=== PATIENT | male | born 1940 | race American Indian/Alaskan Native ===

== ENCOUNTER → 2017-07-12 07:06 | Outpatient (CLI) | payer MEDICARE, OTHER, SELFPAY ==
[2017-07-12 08:19] LABS: Add Manual Diff / Slide Review NO; Basophils Percent Auto 0.4 % (0-2); Eosinophils Percent Auto 3.7 % (2-4); Hematocrit 43.9 % (41-53); Hemoglobin 15.2 g/dL (13.5-17.5); Lymphocytes Percent Auto 19.4 % (25-40); Mean Corpuscular HGB Conc 34.5 % (30-36); Mean Corpuscular Hemoglobin 31.2 PG (26-34); Mean Corpuscular Volume 90.3 fL (80-100); Monocytes Percent Auto 7.3 % (3-14); Neutrophils Absolute Auto 5600 /uL (3000-5900); Neutrophils Percent Auto 69.2 % (50-75); Platelet Count 251 X10^3/uL (150-400); Red Blood Cell Count 4.86 X10^6/uL (4.5-5.9); Red Cell Distribution Width 13.6 % (11.6-14.8); White Blood Cell Count 8.1 X10^3/uL (4.5-11.0)
[2017-07-12 08:42] LABS: Alanine Aminotransferase 35 IU/L (21-72); Albumin 4.4 g/dL (3.5-5.0); Albumin Globulin Ratio 1.4 (1.0-2.8); Alkaline Phosphatase 101 U/L (38-126); Aspartate Aminotransferase 30 IU/L (17-59); BUN Creatinine Ratio 14.5 (6-22); Bilirubin Total 0.6 mg/dL (0.2-1.3); Blood Urea Nitrogen 16 mg/dL (9-20); Calcium 9.2 mg/dL (8.4-10.2); Carbon Dioxide 29 mmol/L (22-32); Chloride 102 mmol/L (98-107); Cholesterol 197 mg/dL (140-199); Estimated Glomerular Filt Rate > 60.0 mL/min (>60); Globulin 3.2 g/dL (1.7-4.1); Glucose 101 mg/dL (80-110); HDL Cholesterol 36 mg/dL (40-60); HEMOLYSIS < 15 (0-50); LDL Cholesterol Calculated 109 mg/dL (<100); Sodium 141 mmol/L (137-145); Total Protein 7.6 g/dL (6.3-8.2); Triglycerides 258 mg/dL (35-150)
[2017-07-12 09:14] LABS: Thyroid Stimulating Hormone 1.43 uIU/mL (0.47-4.68)
== END ==
PROVIDERS: PCP Family Medicine; Visit Provider Family Medicine
DX: E78.2 Mixed hyperlipidemia (principal)
CPT/HCPCS: 36415; 80053; 80061; 84153; 84443; 85025

== ENCOUNTER → 2017-11-24 06:51 | Outpatient (CLI) | payer MEDICARE, OTHER, SELFPAY ==
--- NOTE | 2017-11-24 06:54 | DI.MRI.S_ITS ---
PROCEDURE: MR HEAD/BRAIN WO CON INDICATIONS: mem imp TECHNIQUE: Non-contrast axial T1 spin echo, axial T2 fast spin echo, sagittal and axial FLAIR, coronal T2 fast spin echo, axial gradient echo, axial diffusion and ADC through the brain. COMPARISON: [facility], MR, MR BRAIN WITHOUT CONTRAST, 09/14/2017, 15:34. FINDINGS: Image quality: Excellent. CSF spaces: Ventricles appear symmetric in size and shape. Basal cisterns are patent. No extra-axial fluid collections. Brain: No intracranial bleeds or mass effects. There is cerebral volume loss for age. There are periventricular and deep white matter chronic small vessel ischemic changes. Brainstem appears normal. Diffusion-weighted images show no acute ischemic insults. No chronic ischemic insults. Normal intravascular flow voids are present. Skull and face: Calvarial bone marrow is normal in signal. Orbits are normal. Sinuses: Sinuses and mastoids are clear. IMPRESSION: 1. No acute intracranial process. Stable exam compared to 09/14/17. 2. Moderate atrophy and chronic microvascular ischemic changes. Dictated by: Kamala Edmond M.D. on 11/24/2017 at 10:26 Approved by: Kamala Edmond M.D. on 11/24/2017 at 10:29
== END ==
PROVIDERS: PCP Family Medicine; Visit Provider Family Medicine
DX: R41.3 Other amnesia (principal)
CPT/HCPCS: 70551

== ENCOUNTER → 2018-05-26 15:02 | Outpatient (CLI) | payer MEDICARE, OTHER, SELFPAY ==
--- NOTE | 2018-05-26 | DI.ECHO.S_ITS ---
[facility]---------+ [facility] +---------+ : : [address] : [place] : : : : [id number] : : : : Phone: [phone]---------+ Echocardiogram Report + + :Name: RUSSELL WOODS Study Date: 05/26/2018 Height: 68 in : :[facility] Weight: 201 lb : : Gender: Male BSA: 2.0 m2 : :: 1940 Age: 78 yrs BP: 150/86 mmHg: :Reason For Study: Chest pain : : Performed By: Terri Chairez : :Referring: Dr. Mic Adams : + + Interpretation Summary The left ventricle is normal in size. The ejection fraction is estimated to be 65-70%. The right ventricle is grossly normal size. The right ventricular systolic function is normal. The aortic valve is slightly calcified. Leaflet mobility is mildly reduced. There is mild aortic stenosis. There is trace tricuspid regurgitation. The right ventricular systolic pressure is estimated to be at least 39 mmHg based on an estimated right atrial pressure of 8 mm Hg. The atrial septum is aneurysmal. The interatrial septum is intact with no evidence for an atrial septal defect. The ascending aorta is mildly enlarged. Procedure: A two-dimensional transthoracic echocardiogram with color flow and Doppler was performed. The study quality was technically adequate. Most of the acoustic windows were suboptimal, but the best imaging was obtained from the subcostal window. The heart rate ranged between 100-97 bpm during the study. The patient was in normal sinus rhythm during the exam. Left Ventricle: The left ventricle is normal in size. Proximal septal thickening is noted. There is no echo evidence for significant left ventricular outflow tract obstruction. There is no thrombus. The ejection fraction is estimated to be 65-70%. There are no focal wall motion abnormalities. Diastolic function could not be accurately assessed due to tachycardia. Right Ventricle: The right ventricle is grossly normal size. The right ventricular systolic function is normal. Atria: The left atrial size is normal. Right atrial size is normal. The interatrial septum is intact with no evidence for an atrial septal defect. The atrial septum is aneurysmal. Mitral Valve: The mitral valve leaflets appear mildly thickened, but open well. There is slight calcification extending into the subvalvular apparatus. There is mild mitral annular calcification. No significant mitral valve stenosis. There is trace mitral regurgitation. Aortic Valve: The aortic valve is trileaflet. Leaflet mobility is mildly reduced. The aortic valve is slightly calcified. The calculated aortic valve area is 1.8 cm2. The aortic valve area is 1.8 centimeters squared by planimetry. The peak aortic velocity is 2.4 m/sec. The aortic valve mean gradient is 11 mmHg. Severity ratio is 0.51. There is mild aortic stenosis. There is trace aortic regurgitation. Tricuspid Valve: The tricuspid valve is normal. The right ventricular systolic pressure is estimated to be at least 39 mmHg based on an estimated right atrial pressure of 8 mm Hg. There is trace tricuspid regurgitation. Pulmonic Valve: The pulmonic valve is not well seen, but is grossly normal. There is trace pulmonic regurgitation. Great Vessels: The aortic root is normal size. The ascending aorta is mildly enlarged. The aortic arch is at the upper limits of normal in size. The IVC is dilated (diameter is greater than 2.1 cm) yet it collapses greater than 50% with a sniff. This suggests a right atrial pressure of 8 mm Hg. Pericardium/ Pleura There is no pericardial effusion. There is no pleural effusion. MMode/2D Measurements & Calculations LVIDd: 3.7 cm LVOT diam: 2.1 cm LVIDs: 2.4 cm Ao root diam: 3.8 cm FS: 34.0 % Aortic Jxn: 3.2 cm EPSS: 0.50 cm asc Aorta Diam: 4.0 cm IVSd: 1.1 cm Ao Arch Diam (Prox Trans): 3.5 cm LVPWd: 0.81 cm LV sanches. diameter/BSA (cm/m^2): 1.8 LV sys. diameter/BSA (cm/m^2): 1.2 LA dimension: 4.0 cm RA long axis: 5.3 cm LA A2 area: 16.7 cm2 RA area: 18.0 cm2 LA A4 area: 15.1 cm2 RA vol: 51.6 ml LA length (vol): 4.8 cm RA : 25.2 ml/m2 LA vol: 45.0 ml IVC diam: 2.2 cm LA vol index: 22.0 ml/m2 RVDd major: 5.9 cm RVD1 (basal): 4.2 cm RVD2 (mid): 3.2 cm BOY (plan): 1.8 cm2 Doppler Measurements & Calculations Ao V2 max: 240.5 cm/sec LVOT Max Samson: 112.1 cm/sec Ao V2 mean: 155.8 cm/sec LV V1 max P.0 mmHg Ao max P.1 mmHg LV V1 VTI: 22.6 cm Ao mean P.4 mmHg BOY(I,D): 1.8 cm2 Ao V2 VTI: 44.1 cm BOY(V,D): 1.7 cm2 sev ratio: 0.51 BOY indexed to BSA (cm^2/m^2): 0.90 MVA(VTI): 3.9 cm2 TR max samson: 276.6 cm/sec TR max P.6 mmHg PA V2 max: 95.3 cm/sec PA V2 mean: 59.4 cm/sec PA mean P.7 mmHg PA Accel Time: 0.08 sec MV V2 mean: 66.5 cm/sec SV(LVOT): 80.9 ml MV mean P.4 mmHg MV V2 VTI: 20.7 cm Reading Physician:PM
== END ==
PROVIDERS: PCP Family Medicine; Visit Provider Family Medicine
DX: R07.89 Other chest pain (principal); I35.0 Nonrheumatic aortic (valve) stenosis; I07.1 Rheumatic tricuspid insufficiency; I77.810 Thoracic aortic ectasia
CPT/HCPCS: 93306

== ENCOUNTER → 2018-06-27 06:52 | Outpatient (CLI) | payer MEDICARE, OTHER, SELFPAY ==
[2018-06-27 08:23] LABS: Add Manual Diff / Slide Review NO; Basophils Absolute Auto 0 /uL (0-100); Basophils Percent Auto 0.7 % (0-2); Eosinophils Absolute Auto 200 /uL (0-450); Hematocrit 44.8 % (41-53); Hemoglobin 15.5 g/dL (13.5-17.5); Lymphocytes Absolute Auto 1500 /uL (1100-4500); Lymphocytes Percent Auto 22.5 % (25-40); Mean Corpuscular HGB Conc 34.6 % (30-36); Mean Corpuscular Hemoglobin 31.3 PG (26-34); Mean Corpuscular Volume 90.5 fL (80-100); Monocytes Absolute Auto 500 /uL (0-900); Monocytes Percent Auto 7.6 % (3-14); Neutrophils Absolute Auto 4300 /uL (1500-7000); Neutrophils Percent Auto 66.2 % (50-75); Platelet Count 267 X10^3/uL (150-400); Red Blood Cell Count 4.95 X10^6/uL (4.5-5.9); Red Cell Distribution Width 13.7 % (11.6-14.8); White Blood Cell Count 6.5 X10^3/uL (4.5-11.0)
[2018-06-27 09:13] LABS: Alanine Aminotransferase 37 IU/L (21-72); Albumin 4.3 g/dL (3.5-5.0); Albumin Globulin Ratio 1.4 (1.0-2.8); Alkaline Phosphatase 83 U/L (38-126); Aspartate Aminotransferase 35 IU/L (17-59); BUN Creatinine Ratio 12.5 (6-22); Bilirubin Total 0.6 mg/dL (0.2-1.3); Blood Urea Nitrogen 15 mg/dL (9-20); Calcium 9.9 mg/dL (8.4-10.2); Carbon Dioxide 30 mmol/L (22-32); Chloride 98 mmol/L (98-107); Cholesterol 181 mg/dL (140-199); Estimated Glomerular Filt Rate 58.6 mL/min (>60); Glucose 98 mg/dL (80-110); HDL Cholesterol 31 mg/dL (40-60); HEMOLYSIS < 15 (0-50); LDL Cholesterol Calculated 112 mg/dL (<100); Potassium 4.2 mmol/L (3.4-5.1); Sodium 138 mmol/L (137-145); Total Protein 7.3 g/dL (6.3-8.2); Triglycerides 189 mg/dL (35-150)
[2018-06-27 09:38] LABS: Thyroid Stimulating Hormone 1.97 uIU/mL (0.47-4.68)
[2018-06-27 09:41] LABS: Prostate Specific Antigen Scrn 2.66 ng/mL (0.1-4.0)
[2018-06-27 09:59] LABS: Vitamin B12 657 pg/mL (239-931)
== END ==
PROVIDERS: Family Provider Family Medicine; PCP Family Medicine; Visit Provider Specialist
DX: R41.3 Other amnesia (principal); E78.2 Mixed hyperlipidemia; E03.9 Hypothyroidism, unspecified; I10 Essential (primary) hypertension; Z12.5 Encounter for screening for malignant neoplasm of prostate
CPT/HCPCS: 36415; 80053; 80061; 82607; 84443; 85025; G0103

== ENCOUNTER → 2020-03-14 07:16 | Outpatient (CLI) | payer MEDICARE, OTHER, SELFPAY ==
[2020-03-14 08:59] LABS: Add Manual Diff / Slide Review NO; Basophils Absolute Auto 0 /uL (0-100); Basophils Percent Auto 0.6 % (0-2); Eosinophils Absolute Auto 200 /uL (0-450); Eosinophils Percent Auto 2.6 % (2-4); Hematocrit 45.3 % (41-53); Hemoglobin 14.9 g/dL (13.5-17.5); Lymphocytes Absolute Auto 1000 /uL (1100-4500); Lymphocytes Percent Auto 14.8 % (25-40); Mean Corpuscular HGB Conc 32.9 % (30-36); Mean Corpuscular Hemoglobin 30.8 PG (26-34); Mean Corpuscular Volume 93.5 fL (80-100); Monocytes Absolute Auto 600 /uL (0-900); Neutrophils Absolute Auto 5000 /uL (1500-7000); Platelet Count 279 X10^3/uL (150-400); Red Blood Cell Count 4.85 X10^6/uL (4.5-5.9); Red Cell Distribution Width 12.9 % (11.6-14.8); White Blood Cell Count 6.8 X10^3/uL (4.5-11.0)
[2020-03-14 09:21] LABS: Alanine Aminotransferase 19 IU/L (<50); Albumin 4.2 g/dL (3.5-5.0); Albumin Globulin Ratio 1.4 (1.0-2.8); Alkaline Phosphatase 78 U/L (38-126); Aspartate Aminotransferase 24 IU/L (17-59); BUN Creatinine Ratio 16.5 (6-22); Bilirubin Total 0.6 mg/dL (0.2-1.3); Blood Urea Nitrogen 16 mg/dL (9-20); Carbon Dioxide 32 mmol/L (22-32); Chloride 101 mmol/L (98-107); Cholesterol 197 mg/dL (140-199); Estimated Glomerular Filt Rate > 60.0 mL/min (>60); Globulin 2.9 g/dL (1.7-4.1); Glucose 95 mg/dL (80-110); HDL Cholesterol 37 mg/dL (40-60); HEMOLYSIS < 15 (0-50); LDL Cholesterol Calculated 133 mg/dL (<100); Sodium 137 mmol/L (137-145); Total Protein 7.1 g/dL (6.3-8.2); Triglycerides 134 mg/dL (35-150)
[2020-03-14 09:41] LABS: Creatinine Urine Random 113.2 mg/dL
[2020-03-14 09:45] LABS: Microalbumin Urine Random 1.7 mg/dL (0-1.6)
[2020-03-14 09:54] LABS: Free T4, Direct Thyroxine 1.54 ng/dL (0.78-2.19)
[2020-03-14 10:08] LABS: Thyroid Stimulating Hormone 1.56 uIU/mL (0.47-4.68)
== END ==
PROVIDERS: Family Provider Family Medicine; PCP Family Medicine; Referring Provider Family Medicine; Visit Provider Family Medicine
DX: E03.9 Hypothyroidism, unspecified (principal); E78.2 Mixed hyperlipidemia; I10 Essential (primary) hypertension
CPT/HCPCS: 36415; 80053; 80061; 82043; 82570; 84439; 84443; 85025

== ENCOUNTER → 2021-02-28 08:20 | Outpatient (CLI) | payer MEDICARE, OTHER, SELFPAY ==
[2021-02-28 09:24] LABS: Add Manual Diff / Slide Review NO; Basophils Absolute Auto 0 /uL (0-100); Basophils Percent Auto 0.8 % (0-2); Eosinophils Absolute Auto 200 /uL (0-450); Eosinophils Percent Auto 3.8 % (2-4); Hematocrit 38.3 % (41-53); Hemoglobin 13.1 g/dL (13.5-17.5); Lymphocytes Absolute Auto 900 /uL (1100-4500); Lymphocytes Percent Auto 17.8 % (25-40); Mean Corpuscular HGB Conc 34.3 % (30-36); Mean Corpuscular Hemoglobin 31.3 PG (26-34); Mean Corpuscular Volume 91.2 fL (80-100); Monocytes Absolute Auto 400 /uL (0-900); Monocytes Percent Auto 8.4 % (3-14); Neutrophils Absolute Auto 3500 /uL (1500-7000); Neutrophils Percent Auto 69.2 % (50-75); Platelet Count 293 X10^3/uL (150-400); Red Cell Distribution Width 13.1 % (11.6-14.8)
[2021-02-28 10:10] LABS: Alanine Aminotransferase 26 IU/L (<50); Albumin 4.2 g/dL (3.5-5.0); Albumin Globulin Ratio 1.4 (1.0-2.8); Alkaline Phosphatase 108 U/L (38-126); Aspartate Aminotransferase 41 IU/L (17-59); Bilirubin Total 0.4 mg/dL (0.2-1.3); Blood Urea Nitrogen 15 mg/dL (9-20); Carbon Dioxide 31 mmol/L (22-32); Chloride 97 mmol/L (98-107); Cholesterol 174 mg/dL (140-199); Glucose 99 mg/dL (80-110); HDL Cholesterol 44 mg/dL (40-60); HEMOLYSIS < 15 (0-50); LDL Cholesterol Calculated 111 mg/dL (<100); Potassium 4.5 mmol/L (3.4-5.1); Sodium 133 mmol/L (137-145); Total Protein 7.2 g/dL (6.3-8.2); Triglycerides 97 mg/dL (35-150)
[2021-02-28 10:40] LABS: Prostate Specific Antigen Scrn 6.64 ng/mL (0.1-4.0); TSH w/ Reflex to FT4 1.26 uIU/mL (0.47-4.68)
== END ==
PROVIDERS: Family Provider Family Medicine; PCP Family Medicine; Referring Provider Family Medicine; Visit Provider Family Medicine
DX: E78.2 Mixed hyperlipidemia (principal); I10 Essential (primary) hypertension; Z12.5 Encounter for screening for malignant neoplasm of prostate; N13.8 Other obstructive and reflux uropathy; N40.1 Benign prostatic hyperplasia with lower urinary tract symptoms; E03.9 Hypothyroidism, unspecified
CPT/HCPCS: 36415; 80053; 80061; 84443; 85025; G0103

== ENCOUNTER → 2021-05-13 14:06 | Outpatient (CLI) | payer MEDICARE, OTHER, SELFPAY ==
[2021-05-13 14:58] LABS: Hematocrit 34.4 % (41-53); Hemoglobin 11.7 g/dL (13.5-17.5); Mean Corpuscular Hemoglobin 30.5 PG (26-34); Mean Corpuscular Volume 89.8 fL (80-100); Platelet Count 132 X10^3/uL (150-400); Red Blood Cell Count 3.83 X10^6/uL (4.5-5.9); Red Cell Distribution Width 13.9 % (11.6-14.8); White Blood Cell Count 6.8 X10^3/uL (4.5-11.0)
[2021-05-13 15:13] LABS: Add Manual Diff / Slide Review YES
[2021-05-13 15:22] LABS: HEMOLYSIS < 15 (0-50); Iron 84 ug/dL (49-181)
[2021-05-13 15:24] LABS: Alanine Aminotransferase 35 IU/L (<50); Albumin 4.3 g/dL (3.5-5.0); Albumin Globulin Ratio 1.5 (1.0-2.8); Alkaline Phosphatase 146 U/L (38-126); Aspartate Aminotransferase 132 IU/L (17-59); Bilirubin Total 0.5 mg/dL (0.2-1.3); Blood Urea Nitrogen 19 mg/dL (9-20); Calcium 9.5 mg/dL (8.4-10.2); Carbon Dioxide 24 mmol/L (22-32); Chloride 97 mmol/L (98-107); Estimated Glomerular Filt Rate 54.6 mL/min (>60); Globulin 2.8 g/dL (1.7-4.1); Glucose 111 mg/dL (80-110); HEMOLYSIS 21 (0-50); Potassium 4.5 mmol/L (3.4-5.1); Sodium 132 mmol/L (137-145); Total Protein 7.1 g/dL (6.3-8.2)
[2021-05-13 15:32] LABS: Neutrophils Absolute Manual 4964 /uL (3000-5900); Nucleated Red Blood Cells 1 #/Diff; Total Cells Counted 100
[2021-05-13 15:33] LABS: Platelet Estimate Decreased on smear; RBC Morphology Normal Morphology; Toxic Vacuolation Present
[2021-05-13 15:34] LABS: Percent Iron Saturation 38 % (20-50); Total Iron Binding Capacity 223 ug/dL (261-462); Transferrin 167 mg/dL (206-381)
[2021-05-13 15:39] LABS: Free T4, Direct Thyroxine 1.36 ng/dL (0.78-2.19)
[2021-05-13 15:52] LABS: Prostate Specific Antigen Scrn 15.3 ng/mL (0.1-4.0)
[2021-05-13 15:53] LABS: Thyroid Stimulating Hormone 2.43 uIU/mL (0.47-4.68)
[2021-05-13 16:11] LABS: Vitamin B12 421 pg/mL (239-931)
== END ==
PROVIDERS: Family Provider Family Medicine; PCP Family Medicine; Referring Provider Family Medicine; Visit Provider Family Medicine
DX: D64.9 Anemia, unspecified (principal); Z12.5 Encounter for screening for malignant neoplasm of prostate; E78.2 Mixed hyperlipidemia; N13.8 Other obstructive and reflux uropathy; N18.9 Chronic kidney disease, unspecified; N40.1 Benign prostatic hyperplasia with lower urinary tract symptoms
CPT/HCPCS: 36415; 80053; 82607; 83540; 83550; 84439; 84443; 85007; 85025; G0103

== ENCOUNTER → 2021-07-14 10:03 | Outpatient (CLI) | payer MEDICARE, OTHER, SELFPAY ==
[2021-07-14 10:44] LABS: Add Manual Diff / Slide Review YES; Hematocrit 21.9 % (41-53); Hemoglobin 7.3 g/dL (13.5-17.5); Mean Corpuscular HGB Conc 33.4 % (30-36); Mean Corpuscular Hemoglobin 33.2 PG (26-34); Mean Corpuscular Volume 99.4 fL (80-100); Platelet Count 38 X10^3/uL (150-400); Red Cell Distribution Width 23.4 % (11.6-14.8); White Blood Cell Count 4.8 X10^3/uL (4.5-11.0)
[2021-07-14 11:02] LABS: Neutrophils Absolute Manual 2928 /uL (3000-5900); Nucleated Red Blood Cells 11 #/Diff; Total Cells Counted 100
[2021-07-14 11:03] LABS: Anisocytosis 3+; Macrocytosis 1+; Platelet Estimate Decreased on smear
[2021-07-14 11:04] LABS: Alanine Aminotransferase 24 IU/L (<50); Albumin 3.4 g/dL (3.5-5.0); Albumin Globulin Ratio 1.4 (1.0-2.8); Alkaline Phosphatase 168 U/L (38-126); Aspartate Aminotransferase 97 IU/L (17-59); BUN Creatinine Ratio 17.4 (6-22); Bilirubin Total 0.7 mg/dL (0.2-1.3); Blood Urea Nitrogen 25 mg/dL (9-20); Calcium 8.8 mg/dL (8.4-10.2); Carbon Dioxide 23 mmol/L (22-32); Chloride 105 mmol/L (98-107); Estimated Glomerular Filt Rate 49 mL/min (>60); Globulin 2.5 g/dL (1.7-4.1); Glucose 113 mg/dL (80-110); HEMOLYSIS < 15 (0-50); Polychromasia 1+; Potassium 4.1 mmol/L (3.4-5.1); Sodium 136 mmol/L (137-145); Total Protein 5.9 g/dL (6.3-8.2)
--- NOTE | 2021-07-20 13:24 | ONC.MSW ---
Description: New Referral Navigation T/C Reason for Referral: Diffuse Metastatic Bone Cancer-unknown primary-urgent Activity: Reviewed EMR and referral for medical status, acuity, and immediate needs. Pt is an 81-year old male who presented to the ED on 07/15/21 with increasing weakness, loss of appetite, recent severe weight loss, severe anemia and thrombocytopenia, as well as an acute UTI. He he was admitted inpt, received blood transfusions, did not need platelet transfusion. CT imaging showed widely metastasized sclerotic bone lesions of unknown primary, diffuse metastatic disease on chest CT, and elevated PSA of 16. He does have moderate dementia, depends on his for care coordination and to provide health hx. SHEETMETAL WORKER spoke with , confirmed that we have the referral, and discussed what to expect with pt's first Oncology consult. Pt is able to tentatively transfer with a gait belt, uses a cane, however is safest in a wheelchair. [facility] will arrange for transportation for pt/spouse. SHEETMETAL WORKER discussed what to expect with navigation services, as well as the ongoing availability of assistance, support, care coordination as needed, and resource referrals. She expressed great relief that he has been scheduled, confirmed his initial consult time for 07/22 at 11:00am.
== END ==
PROVIDERS: Family Provider Family Medicine; PCP Family Medicine; Referring Provider Family Medicine; Visit Provider Family Medicine
DX: D50.8 Other iron deficiency anemias (principal); N18.32 Chronic kidney disease, stage 3b
CPT/HCPCS: 36415; 80053; 85007; 85025

== ENCOUNTER 2021-07-15 12:32 | Inpatient (IN) | payer MEDICARE, OTHER, SELFPAY ==
[2021-07-15] VITALS (31 sets, daily range): BP systolic 80–135; BP diastolic 53–85; PULSE 73–81; RESP 14–23; TEMP 36.1–37; O2SAT 91–100; BMI 22.6
--- NOTE | 2021-07-15 13:14 | ED_ITS ---
HPI - Weakness General Chief complaint: Weakness Stated complaint: Gen. weakness Time Seen by Provider: 07/15/21 13:14 Source: patient and EMS Mode of arrival: EMS History of Present Illness HPI Narrative: This is a 81-year-old male with history of reported ataxia, BPH, CKD, dementia and hypothyroidism who arrives via EMS, he complains of generalized weakness and just feeling generally unwell. For several days. Patient denies fevers, he denies headache or lightheadedness or passing out. He states it has been difficult to get to the bathroom at home and walking he needs some assistance. Patient denies chest pain or shortness of breath. He denies any nausea or vomiting. He denies any dysuria, urgency or frequency, decrease in urine output or dark urine, no diarrhea constipation. No black or bloody stools. He denies any one-sided weakness or lateralizing symptoms. Patient denies any cough, cold or congestion. He presents with EMS his had contacted EMS but made statements to them that she should probably just kill him off because he is old and demented. She had told the EMS while transporting with them that if they told anyone that she would kill him and then asked him his full name specifically and made threats to shoot herself, the EMS providers as well and that it would be all there fault. PD was contacted, saw patient family here. EMS declined to press charges. When discussed with the patient he is unaware of these but states she has a very passionate person he states that she sometimes makes statements like this. He states that she has not hurt him or others. He does have some history of dementia and states he has memory issues. He is unable to give a full medical history or surgical history. He can tell me his primary care physician is Dr. Quiros. Related Data Home Medications Medication Instructions Recorded Confirmed memantine 10 mg tablet 10 mg PO BID tab 01/20/21 07/15/21 aspirin 81 mg tablet 81 mg PO DAILY 07/15/21 07/15/21 clonidine HCl 0.1 mg tablet 0.1 mg PO BID 07/15/21 07/15/21 dorzolamide 22.3 mg-timolol 6.8 1 drp EYE-BOTH BEDTIME 07/15/21 07/15/21 mg/mL eye drops finasteride 5 mg tablet 5 mg PO BEDTIME 07/15/21 07/15/21 fluticasone propionate 50 See Rx Instructions .ROUTE 07/15/21 07/15/21 mcg/actuation nasal .COMPLEX PRN spray,suspension latanoprost 0.005 % eye drops 1 drp EYE-BOTH BEDTIME 07/15/21 07/15/21 pravastatin 20 mg tablet 20 mg PO HS 07/15/21 07/15/21 selenium sulfide 2.5 % lotion See Rx Instructions TOP .COMPLEX 07/15/21 07/15/21 PRN sodium chloride 5 % eye ointment 1 applic EYE-RIGHT BID 07/15/21 07/15/21 trazodone 50 mg tablet 50 mg PO BEDTIME PRN 07/15/21 07/15/21 Previous Rx's Medication Instructions Recorded gabapentin 300 mg capsule 300 mg PO HS #90 cap 09/26/20 (Neurontin) levothyroxine 50 mcg tablet 50 mcg PO QAM #90 tab 09/26/20 montelukast 10 mg tablet 10 mg PO QDAY #90 tab 09/26/20 tamsulosin 0.4 mg capsule (Flomax) 0.4 mg PO QDAY #90 cap 09/26/20 ferrous gluconate 324 mg (38 mg 324 mg PO DAILY #90 tab 05/13/21 iron) tablet lisinopril 20 mg tablet 20 mg PO DAILY #90 tab 06/01/21 Allergies Allergy/AdvReac Type Severity Reaction Status Date / Time No Known Drug Allergies Allergy Verified 06/19/21 10:43 Review of Systems Review of Systems ROS Unobtainable: All systems reviewed & are unremarkable except as noted in HPI and below Patient History Medical History Anemia Ataxia BPH (benign prostatic hyperplasia) Cellulitis Chronic back pain CKD (chronic kidney disease) Cognitive decline Eczema (~1969) Hearing deficit Hypothyroidism Olecranon bursitis PSA elevation Shoulder pain (~2014) Skin lesion Tinea Vision disorder Weight loss due to medication Well adult exam Surgical History Colon polyps Family History Father Heart disease Social History household members: spouse Smoking Status: Former smoker alcohol intake: former substance use type: does not use Smoking Status: Former smoker Substance Use Type: does not use Exam Narrative Exam Narrative: GEN: well nourished, well appearing male, alert and oriented to self, patient appears to be in mild distress. Patient answers questions for ROS clearly. He states he does have some memory issues and has trouble with longer-term history. HEENT: Atraumatic, pupils are equal round reactive to light, extraocular movements are intact, nares are clear, TMs are clear with no fluid, there is no conjunctival pallor. Throat is clear without any exudates, erythema, tonsillar enlargement or uvular deviation HEART: Regular rate and rhythm without murmur, clicks, rubs. pulses are equal in upper and lower extremities LUNGS:Lungs clear to auscultation, no wheezes, rales, crackles, chest moves symmetrically ABD:bowel sounds normal, soft, non-tender, no guarding, rebound, rigidity, no masses noted, no hepatosplenomegaly :No CVA tenderness BACK: No cervical, thoracic or lumbar vertebral point tenderness. Patient has 2 x 3 and a 4 x 4 cm ecchymosis bilateral lower flanks but no hematoma. Patient states this is from a fall. MSCL: Non-tender, no muscle atrophy, muscles strength 5/5 upper and lower extremities, full range of motion, no obvious ataxia on initial exam. NEURO:CN 2-12 intact, sensation normal. SKIN: Patient has some small ecchymosis on right anterior jacob and ankle. Initial Vital Signs Initial Vital Signs: Vital Signs Blood Pressure 82/55 L 07/15/21 12:41 Course Orders Ordered: ED Orders 07/15/21 13:15 PRBC [Packed Cells] Stat Type and Screen Stat 07/15/21 13:20 COVID19 -Nasal RAPID/Pre-Proc Stat 07/15/21 13:27 XR chest 1V Stat EKG-12 Lead Stat 07/15/21 13:34 Complete Blood Count AUTO DIFF Stat Comprehensive Metabolic Panel Stat Lactate (Lactic Acid) Stat NT-proBNP (BNP-Adult 18+) Stat Procalcitonin Stat Prothrombin Time INR Stat Troponin & CK Cardiac Panel Stat 07/15/21 13:36 Consult to RECREATIONAL THERAPY TECHNICIAN - Manager Of Community Relations Stat 07/15/21 13:44 Blood Culture Stat Partial Thromboplastin Time Stat 07/15/21 14:22 CT kidney ureter bladder (KUB) Stat 07/15/21 15:48 Trop I [Troponin I] Stat 07/15/21 17:20 Urinalysis and Microscopic Stat Sodium Chloride (Normal Saline 0.9%) 1,000 mls @ 84 mls/hr IV CONT KAREN Discontinued Medications Sodium Chloride (Normal Saline 0.9%) 2,031 mls @ 677 mls/hr 30 ml/kg infuse over 3 hr (2031 ml) IV NOW ONE Stop: 07/15/21 16:26 Last Infusion: 07/15/21 16:47 Dose: 0 mls/hr Documented by: Admin: 07/15/21 13:35 Dose: 677 mls/hr Documented by: KENYATTA Reevaluation(s) Reevaluation #1: Patient updated on findings today. He continues to be asymptomatic other than feeling unwell. Consultations Consultation #1: Dr. Duncan, accepts for admission. Patient appears to have symptomatic anemia, rectal exam is pending but will be performed but suspect GI source altho ugh platelets are also low unexpectedly in comparison to April. Platelets white count is normal. He has acute kidney injury, positive troponin with EKG change ACS could also be secondary to demand secondary to anemia is patient's hemoglobin was 11 in April as well. Patient has some looked like abnormalities potassium is slightly elevated 5.3. Patient was given fluids, transfuse but aspirin and heparin were held he has been asymptomatic in terms of chest pain or shortness of breath. He was hypotensive upon arrival and has been improving with fluids and transfusion. We also discussed that police department followed an APS report, RECREATIONAL THERAPY TECHNICIAN consultation was included today as made multiple statements about harming others as well as the patient at various points during patient's transfer and patient's family stay. Vital Signs Vital signs: Vital Signs - 8 hr 07/15/21 12:41 07/15/21 12:42 07/15/21 12:47 Temperature Pulse Rate 81 81 Respiratory Rate 14 Blood Pressure 82/55 L 84/57 L Pulse Oximetry 91 93 07/15/21 12:51 07/15/21 13:00 07/15/21 13:16 Temperature 98.6 F Pulse Rate 81 78 77 Respiratory Rate 18 15 20 Blood Pressure 84/57 L 84/58 L 85/58 L Pulse Oximetry 94 93 94 07/15/21 13:24 07/15/21 13:30 07/15/21 13:40 Temperature Pulse Rate 77 78 76 Respiratory Rate 23 19 20 Blood Pressure 80/54 L 84/56 L 107/67 Pulse Oximetry 95 92 100 07/15/21 13:50 07/15/21 14:00 07/15/21 14:10 Temperature Pulse Rate 77 77 77 Respiratory Rate 20 20 21 Blood Pressure 89/63 L 93/62 83/57 L Pulse Oximetry 96 98 95 07/15/21 14:20 07/15/21 14:36 07/15/21 15:00 Temperature Pulse Rate 77 79 76 Respiratory Rate 19 19 Blood Pressure 104/67 Pulse Oximetry 99 98 99 07/15/21 15:07 07/15/21 15:08 07/15/21 15:15 Temperature 97.9 F 97.9 F Pulse Rate 76 77 77 Respiratory Rate 21 20 19 Blood Pressure 114/74 114/74 104/72 Pulse Oximetry 100 98 07/15/21 15:26 07/15/21 15:30 07/15/21 15:45 Temperature 97.9 F Pulse Rate 76 76 76 Respiratory Rate 17 18 18 Blood Pressure 107/70 107/70 107/72 Pulse Oximetry 98 99 07/15/21 16:00 07/15/21 16:15 Temperature Pulse Rate 75 75 Respiratory Rate 18 18 Blood Pressure 129/78 91/64 Pulse Oximetry 99 93 MDM - Weakness Lab Data Result diagrams: 07/15/21 13:34 07/15/21 13:34 Labs: Lab Results 07/15/21 07/15/21 07/15/21 Range/Units 13:15 13:20 13:34 WBC 6.5 (4.5-11.0) X10^3/uL RBC 2.16 L (4.5-5.9) X10^6/uL Hgb 7.1 L (13.5-17.5) g/dL Hct 22.0 L (41-53) % MCV 101.9 H (80-100) fL MCH 32.8 (26-34) PG MCHC 32.2 (30-36) % RDW 24.8 H (11.6-14.8) % Plt Count 49 L (150-400) X10^3/uL Neut % (Auto) Not Reportable Lymph % (Auto) Not Reportable Dade % (Auto) Not Reportable Eos % (Auto) Not Reportable Baso % (Auto) Not Reportable Lymph # (Auto) Not Reportable Dade # (Auto) Not Reportable Baso # (Auto) Not Reportable Total Counted 100 Seg Neutrophils % 55.0 (38-70) % Band Neutrophils % 10.0 H (3-7) % Lymphocytes % (Manual) 21.0 L (25-45) % Atypical Lymphs % 1.0 H ( - 0) % Monocytes % (Manual) 7.0 (2-11) % Eosinophils % (Manual) 1.0 L (2-4) % Metamyelocytes % 3.0 H (-0) % Myelocytes % 2.0 H (-0) % Neutrophils # (Manual) 4225 (6258-4968) /uL Nucleated RBCs 16 H ( - 0) #/Diff RBC Morphology Not Reportable Polychromasia 2+ H Poikilocytosis 1+ H Anisocytosis 3+ H PT (10.1-12.7) SECONDS INR (0.9-1.3) APTT (26.4-36.2) SECONDS Sodium (137-145) mmol/L Potassium (3.4-5.1) mmol/L Chloride (98-107) mmol/L Carbon Dioxide (22-32) mmol/L BUN (9-20) mg/dL Creatinine (0.66-1.25) mg/dL Estimated GFR (>60) mL/min BUN/Creatinine Ratio (6-22) Glucose (80-110) mg/dL Lactate (0.7-2.1) mmol/L Calcium (8.4-10.2) mg/dL Total Bilirubin (0.2-1.3) mg/dL AST (17-59) IU/L ALT (<50) IU/L Alkaline Phosphatase (38-126) U/L Total Creatine Kinase (55-170) U/L CK-MB (CK-2) (<2.37) ng/mL CK-MB (CK-2) Rel Index (1.5-5.0) % Troponin I (0.01-0.034) ng/mL NT-Pro-B Natriuret Pep (<450) pg/mL Total Protein (6.3-8.2) g/dL Albumin (3.5-5.0) g/dL Globulin (1.7-4.1) g/dL Albumin/Globulin Ratio (1.0-2.8) Procalcitonin (<0.5) ng/mL SARS-CoV-2 (PCR) Negative (Negative) Blood Type O Positive Antibody Screen Negative Crossmatch See Detail 07/15/21 07/15/21 07/15/21 Range/Units 13:34 13:34 13:34 WBC (4.5-11.0) X10^3/uL RBC (4.5-5.9) X10^6/uL Hgb (13.5-17.5) g/dL Hct (41-53) % MCV (80-100) fL MCH (26-34) PG MCHC (30-36) % RDW (11.6-14.8) % Plt Count (150-400) X10^3/uL Neut % (Auto) Lymph % (Auto) Dade % (Auto) Eos % (Auto) Baso % (Auto) Lymph # (Auto) Dade # (Auto) Baso # (Auto) Total Counted Seg Neutrophils % (38-70) % Band Neutrophils % (3-7) % Lymphocytes % (Manual) (25-45) % Atypical Lymphs % ( - 0) % Monocytes % (Manual) (2-11) % Eosinophils % (Manual) (2-4) % Metamyelocytes % (-0) % Myelocytes % (-0) % Neutrophils # (Manual) (0139-6356) /uL Nucleated RBCs ( - 0) #/Diff RBC Morphology Polychromasia Poikilocytosis Anisocytosis PT 16.3 H (10.1-12.7) SECONDS INR 1.4 H (0.9-1.3) APTT (26.4-36.2) SECONDS Sodium 135 L (137-145) mmol/L Potassium 5.3 H D (3.4-5.1) mmol/L Chloride 105 (98-107) mmol/L Carbon Dioxide 18 L (22-32) mmol/L BUN 39 H (9-20) mg/dL Creatinine 2.43 H (0.66-1.25) mg/dL Estimated GFR 26 L (>60) mL/min BUN/Creatinine Ratio 16.0 (6-22) Glucose 131 H (80-110) mg/dL Lactate 4.6 H* (0.7-2.1) mmol/L Calcium 8.7 (8.4-10.2) mg/dL Total Bilirubin 0.8 (0.2-1.3) mg/dL AST 134 H (17-59) IU/L ALT 40 (<50) IU/L Alkaline Phosphatase 185 H (38-126) U/L Total Creatine Kinase 200 H (55-170) U/L CK-MB (CK-2) 0.87 (<2.37) ng/mL CK-MB (CK-2) Rel Index 0.4 L (1.5-5.0) % Troponin I 1.280 H* (0.01-0.034) ng/mL NT-Pro-B Natriuret Pep 87490 H (<450) pg/mL Total Protein 6.1 L (6.3-8.2) g/dL Albumin 3.6 (3.5-5.0) g/dL Globulin 2.5 (1.7-4.1) g/dL Albumin/Globulin Ratio 1.4 (1.0-2.8) Procalcitonin 0.274 (<0.5) ng/mL SARS-CoV-2 (PCR) (Negative) Blood Type Antibody Screen Crossmatch 07/15/21 07/15/21 07/15/21 Range/Units 13:44 15:48 15:48 WBC (4.5-11.0) X10^3/uL RBC (4.5-5.9) X10^6/uL Hgb (13.5-17.5) g/dL Hct (41-53) % MCV (80-100) fL MCH (26-34) PG MCHC (30-36) % RDW (11.6-14.8) % Plt Count (150-400) X10^3/uL Neut % (Auto) Lymph % (Auto) Dade % (Auto) Eos % (Auto) Baso % (Auto) Lymph # (Auto) Dade # (Auto) Baso # (Auto) Total Counted Seg Neutrophils % (38-70) % Band Neutrophils % (3-7) % Lymphocytes % (Manual) (25-45) % Atypical Lymphs % ( - 0) % Monocytes % (Manual) (2-11) % Eosinophils % (Manual) (2-4) % Metamyelocytes % (-0) % Myelocytes % (-0) % Neutrophils # (Manual) (3645-4106) /uL Nucleated RBCs ( - 0) #/Diff RBC Morphology Polychromasia Poikilocytosis Anisocytosis PT (10.1-12.7) SECONDS INR (0.9-1.3) APTT 28 (26.4-36.2) SECONDS Sodium (137-145) mmol/L Potassium (3.4-5.1) mmol/L Chloride (98-107) mmol/L Carbon Dioxide (22-32) mmol/L BUN (9-20) mg/dL Creatinine (0.66-1.25) mg/dL Estimated GFR (>60) mL/min BUN/Creatinine Ratio (6-22) Glucose (80-110) mg/dL Lactate 1.4 (0.7-2.1) mmol/L Calcium (8.4-10.2) mg/dL Total Bilirubin (0.2-1.3) mg/dL AST (17-59) IU/L ALT (<50) IU/L Alkaline Phosphatase (38-126) U/L Total Creatine Kinase (55-170) U/L CK-MB (CK-2) (<2.37) ng/mL CK-MB (CK-2) Rel Index (1.5-5.0) % Troponin I 1.550 H* (0.01-0.034) ng/mL NT-Pro-B Natriuret Pep (<450) pg/mL Total Protein (6.3-8.2) g/dL Albumin (3.5-5.0) g/dL Globulin (1.7-4.1) g/dL Albumin/Globulin Ratio (1.0-2.8) Procalcitonin (<0.5) ng/mL SARS-CoV-2 (PCR) (Negative) Blood Type Antibody Screen Crossmatch Imaging Data Chest x-ray: Radiologist Impression: Primo Kelley??81??M??1940 ? Allergy/Adv: No Known Drug Allergies (More??) Close Abdomen/Pelvis CT (Signed) Osito Louise - 07/15/21 Chest X-Ray (Signed) Jerardo Edmonds - 07/15/21 Echocardiogram Ultrasound (Signed) Ra Rincon - 05/26/18 Brain MRI (Signed) Kamala Edmond - 11/24/17 Radiology - Historical 02/03/17 Launch?[address] [address] XRay Report Signed Patient: Primo Kelley MR#: [id number] : 1940 Acct:[id number] Age/Sex: 81 / M Date of Service: 07/15/21 Loc: ED Accession Number: [id number] ?? Procedure: XR chest 1V Ordering Provider: Polina Ellis D.O. PROCEDURE:? XR CHEST 1V ? INDICATIONS:? feels unwell, hypotension ? TECHNIQUE:? One view of the chest was acquired.? ? COMPARISON:? None. ? FINDINGS:? ? Surgical changes and devices:? None.? ? Lungs and pleura:? Lungs are clear.? No pleural effusions or pneumothorax.? ? Mediastinum:? Mediastinal contours appear normal.? Heart size is normal.? ? Bones and chest wall:? No suspicious bony lesions.? Overlying soft tissues appear unremarkable.? ? IMPRESSION:? No acute cardiopulmonary pathology. ? ? Dictated by: Jerardo Edmonds M.D. on 07/15/2021 at 14:33 ? ? Approved by: Jerardo Edmonsd M.D. on 07/15/2021 at 14:36?? CT scan - abdomen/pelvis: Radiologist Impression: Primo Kelley??81??M??1940 ? Allergy/Adv: No Known Drug Allergies (More??) Close Abdomen/Pelvis CT (Signed) Osito Louise - 07/15/21 Chest X-Ray (Signed) Jerardo Edmonds - 07/15/21 Echocardiogram Ultrasound (Signed) Ra Rincon - 05/26/18 Brain MRI (Signed) Kamala Edmond - 11/24/17 Radiology - Historical 02/03/17 Launch?[address] [address] [address] Scan Report Signed Patient: Primo Kelley MR#: [id number] : 1940 Acct:[id number] Age/Sex: 81 / M Date of Service: 07/15/21 Loc: ED Accession Number: [id number] ?? Procedure: CT kidney ureter bladder (KUB) Ordering Provider: Polina Ellis D.O. PROCEDURE:? CT KIDNEY URETER BLADDER (KUB) ? INDICATIONS:? renal failure, symptomatic anemia ? TECHNIQUE:? Axial sections were acquired from the lung bases to the pubic symphysis.? Coronal and sagittal reformats were performed.? For radiation dose reduction, the following was used: ?automated exposure control, adjustment of mA and/or kV according to patient size.? ? COMPARISON:? [facility], CT, CT ABDOMEN PELVIS WITH CONTRAST, 09/19/2019, 21:07. ? FINDINGS: Image quality:? Excellent.? ? Lung bases:? Lung bases are clear.? Heart size is normal. ? Solid organs:? Liver: The liver has no mass or intrahepatic biliary ductal dilatation. The portal vein and hepatic veins are patent. Biliary:? The gallbladder contains a dependent 4 mm stone.? No wall thickening o r pericholecystic fluid.? The margins of the pancreas are somewhat hazy, probably due to motion artifact seen in this study.? Pancreas: The pancreas has no mass or ductal dilatation. There is no surrounding inflammation. Spleen: Normal size. There are no masses. Adrenals: No hypertrophy or nodules. Kidneys: No obstructive calculus or hydronephrosis.? No solid mass. No cystic mass. ? Peritoneum and bowel:? The distal esophagus and stomach are normal.? The small bowel has a normal caliber and appearance. The terminal ileum is normal. The large bowel has diverticulosis with no evidence of diverticulitis.? The appendix is normal. No free fluid or air.? ? Nodes and vessels:? No retroperitoneal or mesenteric adenopathy by size criteria.? The aorta has atherosclerosis with no aneurysmal dilatation.? ? Miscellaneous:? No abdominal wall mass or hernia. ? PELVIS:? Genitourinary:? The bladder has no wall thickening or mass. No bladder calcifications. ? Bones:? The bones demonstrate innumerable sclerotic foci most measuring approximately 1 cm throughout the visualized bones including the femurs, pelvis, lumbar spine, and visualized ribs and thoracic spine.? No vertebral body compression fractures.? ? IMPRESSION: 1. Sclerotic foci throughout the visualized bones new compared to prior CT on concerning for osseous metastatic disease. 2. Diverticulosis without evidence of diverticulitis. 3. No nephroureterolithiasis. 4. Cholelithiasis without evidence of cholecystitis.? ? ? Dictated by: Osito Louise M.D. on 07/15/2021 at 14:48 ? ? Approved by: Osito Louise M.D. on 07/15/2021 at 14:56?? ECG Data Attestation: I personally reviewed and interpreted this ECG as follows: Prior ECG tracings: not available for review Interpretation: Sinus rhythm with sinus arrhythmia, T-wave inversion in lead 3 inverted in V1 through V4. No elevation appreciated. QT for long. Rate of 79 MD 190 QRS 80 QTC of 502. No priors available for comparison. EKG 2. Sinus rhythm premature atrial complexes, rate 81 MD 190 QRS 86 QTC of 506. No acute ST elevation noted. T-wave inversion noted lateral leads. MDM Narrative Medical decision making narrative: This is an 80-year-old male who presents with complaint of feeling unwell with hypotension patient does feel a bit pale, on exam no clear findings for the source of his symptoms. He does not respond to initial fluids. Labs show a he anemia which is new with a hemoglobin from 11-7 since April. Patient is agreeable to transfusion and 2 units PRBCs were transfused. Patient is found to be in acute kidney injury with some like to light abnormalities and signs consistent with dehydration. Troponin is also positive today with EKG changes although no priors for comparison. This may be ACS and/or demand secondary to anemia or exacerbated by anemia. Patient's stool occult was negative exam. He does have some bruising and ecchymosis in various locations but platelets are low in the 30s and 40s in the last 2 days. Patient case was discussed with hospitalist service who accepts. Social Work was also consulted and secondary to social issues related to his 's making statements about harming him and others the police department filed and Adult protective Services report. Patient is demented but when asked about his statements he states she has a very passionate person. Critical Care Time Critical Care Time Critical Care Time: Yes Total Critical Care Time: 45 Attestation: The high probability of a clinically significant, sudden or life threatening deterioration of the [cardiac, pulm] system(s) required my full and direct attention, intervention and personal management. The aggregate critical care time was [] minutes. This time is in addition to time spent performing reported procedures but includes the following: [x] Data Review and interpretation [x] Patient assessment and monitoring of vital signs [x] Documentation [x] Medication orders and management Discharge Plan Departure Patient Disposition: Admitted As Inpatient Clinical Impression: Symptomatic anemia, Non-ST elevation AK (NSTEMI), VICTORINO (acute kidney injury), Acute GI bleeding, Hyperkalemia Admit Date/Time: 07/15/21 16:18 Admit Provider: Jeniffer Duncan
--- NOTE | 2021-07-15 13:27 | DI.RAD.S_ITS ---
PROCEDURE: XR CHEST 1V INDICATIONS: feels unwell, hypotension TECHNIQUE: One view of the chest was acquired. COMPARISON: None. FINDINGS: Surgical changes and devices: None. Lungs and pleura: Lungs are clear. No pleural effusions or pneumothorax. Mediastinum: Mediastinal contours appear normal. Heart size is normal. Bones and chest wall: No suspicious bony lesions. Overlying soft tissues appear unremarkable. IMPRESSION: No acute cardiopulmonary pathology. Dictated by: Jerardo Edmonds M.D. on 07/15/2021 at 14:33 Approved by: Jerardo Edmonds M.D. on 07/15/2021 at 14:36
[2021-07-15] MEDS: SODIUM CHLORIDE 0.9% 677 ML IV (13:35)
[2021-07-15 13:39] LABS: INR 1.4 (0.9-1.3); Prothrombin Time 16.3 SECONDS (10.1-12.7)
[2021-07-15 13:40] LABS: Add Manual Diff / Slide Review YES; Hemoglobin 7.1 g/dL (13.5-17.5); Mean Corpuscular HGB Conc 32.2 % (30-36); Mean Corpuscular Hemoglobin 32.8 PG (26-34); Mean Corpuscular Volume 101.9 fL (80-100); Red Blood Cell Count 2.16 X10^6/uL (4.5-5.9); Red Cell Distribution Width 24.8 % (11.6-14.8); White Blood Cell Count 6.5 X10^3/uL (4.5-11.0)
[2021-07-15 13:43] LABS: Albumin 3.6 g/dL (3.5-5.0); Albumin Globulin Ratio 1.4 (1.0-2.8); Blood Urea Nitrogen 39 mg/dL (9-20); Carbon Dioxide 18 mmol/L (22-32); Estimated Glomerular Filt Rate 26 mL/min (>60); Globulin 2.5 g/dL (1.7-4.1); Total Protein 6.1 g/dL (6.3-8.2)
[2021-07-15 13:45] LABS: Lactate (Lactic Acid) 4.6 mmol/L (0.7-2.1)
[2021-07-15 13:48] LABS: COVID19 -Nasal RAPID Negative (Negative)
[2021-07-15 13:57] LABS: HEMOLYSIS < 15 (0-50); NT-proBNP (BNP-Adult 18+) 20100 pg/mL (<450)
[2021-07-15 14:00] LABS: PTT Partial Thromboplastin Tim 28 SECONDS (26.4-36.2)
[2021-07-15 14:06] LABS: Anisocytosis 3+; Neutrophils Absolute Manual 4225 /uL (3000-5900); Nucleated Red Blood Cells 16 #/Diff; Poikilocytosis 1+; Total Cells Counted 100
[2021-07-15 14:07] LABS: Polychromasia 2+
[2021-07-15 14:09] LABS: Platelet Count 49 X10^3/uL (150-400)
[2021-07-15 14:10] LABS: Alanine Aminotransferase 40 IU/L (<50); Alkaline Phosphatase 185 U/L (38-126); Aspartate Aminotransferase 134 IU/L (17-59); Bilirubin Total 0.8 mg/dL (0.2-1.3); Calcium 8.7 mg/dL (8.4-10.2); Chloride 105 mmol/L (98-107); Creatine Kinase 200 U/L (55-170); Glucose 131 mg/dL (80-110); Potassium 5.3 mmol/L (3.4-5.1); Sodium 135 mmol/L (137-145)
[2021-07-15 14:14] LABS: Procalcitonin 0.274 ng/mL (<0.5)
--- NOTE | 2021-07-15 14:22 | DI.CT.S_ITS ---
PROCEDURE: CT KIDNEY URETER BLADDER (KUB) INDICATIONS: renal failure, symptomatic anemia TECHNIQUE: Axial sections were acquired from the lung bases to the pubic symphysis. Coronal and sagittal reformats were performed. For radiation dose reduction, the following was used: automated exposure control, adjustment of mA and/or kV according to patient size. COMPARISON: [facility], CT, CT ABDOMEN PELVIS WITH CONTRAST, 09/19/2019, 21:07. FINDINGS: Image quality: Excellent. Lung bases: Lung bases are clear. Heart size is normal. Solid organs: Liver: The liver has no mass or intrahepatic biliary ductal dilatation. The portal vein and hepatic veins are patent. Biliary: The gallbladder contains a dependent 4 mm stone. No wall thickening or pericholecystic fluid. The margins of the pancreas are somewhat hazy, probably due to motion artifact seen in this study. Pancreas: The pancreas has no mass or ductal dilatation. There is no surrounding inflammation. Spleen: Normal size. There are no masses. Adrenals: No hypertrophy or nodules. Kidneys: No obstructive calculus or hydronephrosis. No solid mass. No cystic mass. Peritoneum and bowel: The distal esophagus and stomach are normal. The small bowel has a normal caliber and appearance. The terminal ileum is normal. The large bowel has diverticulosis with no evidence of diverticulitis. The appendix is normal. No free fluid or air. Nodes and vessels: No retroperitoneal or mesenteric adenopathy by size criteria. The aorta has atherosclerosis with no aneurysmal dilatation. Miscellaneous: No abdominal wall mass or hernia. PELVIS: Genitourinary: The bladder has no wall thickening or mass. No bladder calcifications. Bones: The bones demonstrate innumerable sclerotic foci most measuring approximately 1 cm throughout the visualized bones including the femurs, pelvis, lumbar spine, and visualized ribs and thoracic spine. No vertebral body compression fractures. IMPRESSION: 1. Sclerotic foci throughout the visualized bones new compared to prior CT on 09/19/2019 concerning for osseous metastatic disease. 2. Diverticulosis without evidence of diverticulitis. 3. No nephroureterolithiasis. 4. Cholelithiasis without evidence of cholecystitis. Dictated by: Osito Louise M.D. on 07/15/2021 at 14:48 Approved by: Osito Louise M.D. on 07/15/2021 at 14:56
[2021-07-15 14:44] LABS: CKMB % Relative Index 0.4 % (1.5-5.0); Creatine Kinase MB 0.87 ng/mL (<2.37)
[2021-07-15 15:34] LABS: Reflexed Lactate in 2 Hours Y
[2021-07-15 16:08] LABS: Lactate 2HR (Lactic Acid Rflx) 1.4 mmol/L (0.7-2.1)
--- NOTE | 2021-07-15 18:01 | PM.HP.1 ---
History of Present Illness History of Present Illness Date Patient Seen: 07/15/21 Chief complaint: Gen. weakness Narrative: This is a 81-year-old male with history of ataxia, BPH, CKD, dementia and hypothyroidism who arrives via EMS, he was complaining of generalized weakness and just feeling generally unwell.? For several days this has been ongoing.? No fevers, no headache or lightheadedness or passing out. has been difficult to move about and needs assistance with person, walker and cane mostly.? No chest pain or shortness of breath. No nausea or vomiting.? No dysuria, urgency or frequency, decrease in urine output or dark urine, no diarrhea or constipation.? No black or bloody stools.? No one-sided weakness or lateralizing symptoms.? Not any cough, cold or congestion.? He presents with EMS his had contacted EMS. He does have history of dementia and states he has memory issues and his largely speaks for him since she knows the details and is his caregiver.? He is unable to give a full medical history or surgical history.? He can tell me his primary care physician is Dr. Quiros. Patient History Medical History Anemia Ataxia BPH (benign prostatic hyperplasia) Cellulitis Chronic back pain CKD (chronic kidney disease) Cognitive decline Eczema (~1969) Hearing deficit Hypothyroidism Olecranon bursitis PSA elevation Shoulder pain (~2014) Skin lesion Tinea Vision disorder Weight loss due to medication Well adult exam Surgical History Colon polyps Family & Social History Family History Father Heart disease Safety & Behavioral: Feels Safe in Current Yes Environment Been Physically Hurt or No Threatened By a Person Tobacco & Substance use: Smoking Status Former smoker alcohol intake never Substance Use Type does not use Meds Home Medications and Allergies Home Medications Medication Instructions Recorded Confirmed Type gabapentin 300 mg capsule 300 mg PO HS #90 cap 09/26/20 07/15/21 Rx (Neurontin) levothyroxine 50 mcg tablet 50 mcg PO QAM #90 tab 09/26/20 07/15/21 Rx montelukast 10 mg tablet 10 mg PO QDAY #90 tab 09/26/20 07/15/21 Rx tamsulosin 0.4 mg capsule (Flomax) 0.4 mg PO QDAY #90 cap 09/26/20 07/15/21 Rx memantine 10 mg tablet 10 mg PO BID tab 01/20/21 07/15/21 History ferrous gluconate 324 mg (38 mg 324 mg PO DAILY #90 tab 05/13/21 07/15/21 Rx iron) tablet lisinopril 20 mg tablet 20 mg PO DAILY #90 tab 06/01/21 07/15/21 Rx aspirin 81 mg tablet 81 mg PO DAILY 07/15/21 07/15/21 History clonidine HCl 0.1 mg tablet 0.1 mg PO BID 07/15/21 07/15/21 History dorzolamide 22.3 mg-timolol 6.8 1 drp EYE-BOTH BEDTIME 07/15/21 07/15/21 History mg/mL eye drops finasteride 5 mg tablet 5 mg PO BEDTIME 07/15/21 07/15/21 History fluticasone propionate 50 See Rx Instructions .ROUTE 07/15/21 07/15/21 History mcg/actuation nasal .COMPLEX PRN spray,suspension latanoprost 0.005 % eye drops 1 drp EYE-BOTH BEDTIME 07/15/21 07/15/21 History pravastatin 20 mg tablet 20 mg PO HS 07/15/21 07/15/21 History selenium sulfide 2.5 % lotion See Rx Instructions TOP .COMPLEX 07/15/21 07/15/21 History PRN sodium chloride 5 % eye ointment 1 applic EYE-RIGHT BID 07/15/21 07/15/21 History trazodone 50 mg tablet 50 mg PO BEDTIME PRN 07/15/21 07/15/21 History Allergies Allergy/AdvReac Type Severity Reaction Status Date / Time No Known Drug Allergies Allergy Verified 06/19/21 10:43 Review of Systems Review of Systems Narrative: See pertinent info for 14 system review in HPI. Exam Vital Signs (past 8 hours): - 07/15/21 12:41 07/15/21 12:42 07/15/21 12:47 Temperature Pulse Rate 81 81 Respiratory Rate 14 Blood Pressure 82/55 L 84/57 L Pulse Oximetry 91 93 07/15/21 12:51 07/15/21 13:00 07/15/21 13:16 Temperature 98.6 F Pulse Rate 81 78 77 Respiratory Rate 18 15 20 Blood Pressure 84/57 L 84/58 L 85/58 L Pulse Oximetry 94 93 94 07/15/21 13:24 07/15/21 13:30 07/15/21 13:40 Temperature Pulse Rate 77 78 76 Respiratory Rate 23 19 20 Blood Pressure 80/54 L 84/56 L 107/67 Pulse Oximetry 95 92 100 07/15/21 13:50 07/15/21 14:00 07/15/21 14:10 Temperature Pulse Rate 77 77 77 Respiratory Rate 20 20 21 Blood Pressure 89/63 L 93/62 83/57 L Pulse Oximetry 96 98 95 07/15/21 14:20 07/15/21 14:36 07/15/21 15:00 Temperature Pulse Rate 77 79 76 Respiratory Rate 19 19 Blood Pressure 104/67 Pulse Oximetry 99 98 99 07/15/21 15:07 07/15/21 15:08 07/15/21 15:15 Temperature 97.9 F 97.9 F Pulse Rate 76 77 77 Respiratory Rate 21 20 19 Blood Pressure 114/74 114/74 104/72 Pulse Oximetry 100 98 07/15/21 15:26 07/15/21 15:30 07/15/21 15:45 Temperature 97.9 F Pulse Rate 76 76 76 Respiratory Rate 17 18 18 Blood Pressure 107/70 107/70 107/72 Pulse Oximetry 98 99 07/15/21 16:00 07/15/21 16:15 07/15/21 16:30 Temperature Pulse Rate 75 75 73 Respiratory Rate 18 18 20 Blood Pressure 129/78 91/64 84/53 L Pulse Oximetry 99 93 97 07/15/21 16:45 Temperature Pulse Rate 76 Respiratory Rate 20 Blood Pressure 92/62 Pulse Oximetry 95 Oxygen Delivery Method Nasal Cannula Oxygen Flow Rate 3 Const General: cooperative and comfortable Orientation: alert, oriented to person and oriented to place HENVA Head: normal to inspection Mouth: oral mucosae normal Eyes Pupils: PERRL EOM: EOM intact bilaterally Other: wears glasses. Resp Auscultation: clear to auscultation bilaterally Cardio Rate: regular rate Rhythm: regular rhythm Heart Sounds: S1 normal and S2 normal GI Inspection: normal to inspection Palpation: soft Other: Normal. Skin Other: contusions on legs. Neuro Cranial Nerves: CN's II-XI intact bilaterally Cognition: abnormal cognition Speech: speech normal Extrem Other: Has bruising on legs Objective Labs Result Diagrams: 07/15/21 13:34 07/15/21 13:34 Labs: Laboratory Results - last 24 hr 07/15/21 07/15/21 07/15/21 13:15 13:20 13:34 WBC 6.5 RBC 2.16 L Hgb 7.1 L Hct 22.0 L MCV 101.9 H MCH 32.8 MCHC 32.2 RDW 24.8 H Plt Count 49 L Neut % (Auto) Not Reportable Lymph % (Auto) Not Reportable [place] % (Auto) Not Reportable Eos % (Auto) Not Reportable Baso % (Auto) Not Reportable Lymph # (Auto) Not Reportable [place] # (Auto) Not Reportable Baso # (Auto) Not Reportable Total Counted 100 Seg Neutrophils % 55.0 Band Neutrophils % 10.0 H Lymphocytes % (Manual) 21.0 L Atypical Lymphs % 1.0 H Monocytes % (Manual) 7.0 Eosinophils % (Manual) 1.0 L Metamyelocytes % 3.0 H Myelocytes % 2.0 H Neutrophils # (Manual) 4225 Nucleated RBCs 16 H RBC Morphology Not Reportable Polychromasia 2+ H Poikilocytosis 1+ H Anisocytosis 3+ H PT INR APTT Sodium Potassium Chloride Carbon Dioxide BUN Creatinine Estimated GFR BUN/Creatinine Ratio Glucose Lactate Calcium Total Bilirubin AST ALT Alkaline Phosphatase Total Creatine Kinase CK-MB (CK-2) CK-MB (CK-2) Rel Index Troponin I NT-Pro-B Natriuret Pep Total Protein Albumin Globulin Albumin/Globulin Ratio Procalcitonin SARS-CoV-2 (PCR) Negative Blood Type O Positive Antibody Screen Negative Crossmatch See Detail 07/15/21 07/15/21 07/15/21 13:34 13:34 13:34 WBC RBC Hgb Hct MCV MCH MCHC RDW Plt Count Neut % (Auto) Lymph % (Auto) [place] % (Auto) Eos % (Auto) Baso % (Auto) Lymph # (Auto) [place] # (Auto) Baso # (Auto) Total Counted Seg Neutrophils % Band Neutrophils % Lymphocytes % (Manual) Atypical Lymphs % Monocytes % (Manual) Eosinophils % (Manual) Metamyelocytes % Myelocytes % Neutrophils # (Manual) Nucleated RBCs RBC Morphology Polychromasia Poikilocytosis Anisocytosis PT 16.3 H INR 1.4 H APTT Sodium 135 L Potassium 5.3 H D Chloride 105 Carbon Dioxide 18 L BUN 39 H Creatinine 2.43 H Estimated GFR 26 L BUN/Creatinine Ratio 16.0 Glucose 131 H Lactate 4.6 H* Calcium 8.7 Total Bilirubin 0.8 AST 134 H ALT 40 Alkaline Phosphatase 185 H Total Creatine Kinase 200 H CK-MB (CK-2) 0.87 CK-MB (CK-2) Rel Index 0.4 L Troponin I 1.280 H* NT-Pro-B Natriuret Pep 65261 H Total Protein 6.1 L Albumin 3.6 Globulin 2.5 Albumin/Globulin Ratio 1.4 Procalcitonin 0.274 SARS-CoV-2 (PCR) Blood Type Antibody Screen Crossmatch 07/15/21 07/15/21 07/15/21 13:44 15:48 15:48 WBC RBC Hgb Hct MCV MCH MCHC RDW Plt Count Neut % (Auto) Lymph % (Auto) [place] % (Auto) Eos % (Auto) Baso % (Auto) Lymph # (Auto) [place] # (Auto) Baso # (Auto) Total Counted Seg Neutrophils % Band Neutrophils % Lymphocytes % (Manual) Atypical Lymphs % Monocytes % (Manual) Eosinophils % (Manual) Metamyelocytes % Myelocytes % Neutrophils # (Manual) Nucleated RBCs RBC Morphology Polychromasia Poikilocytosis Anisocytosis PT INR APTT 28 Sodium Potassium Chloride Carbon Dioxide BUN Creatinine Estimated GFR BUN/Creatinine Ratio Glucose Lactate 1.4 Calcium Total Bilirubin AST ALT Alkaline Phosphatase Total Creatine Kinase CK-MB (CK-2) CK-MB (CK-2) Rel Index Troponin I 1.550 H* NT-Pro-B Natriuret Pep Total Protein Albumin Globulin Albumin/Globulin Ratio Procalcitonin SARS-CoV-2 (PCR) Blood Type Antibody Screen Crossmatch Assessment & Plan Assessment & Plan narrative: 1. Low Hb in patient already receiving iron replacement. Transfuse and follow labs. 2. Elevated Band. Be vigilant for an infection. 3. Elevated PT and INR. 4. Hyponatremia. Mild, follow. 5. Hyperkalemia. Follow and determine if treatment is necessary. 6. Elevated Creatinine and GFR. Has CKD, provide IV fluids and follow labs. 7. Elevated CK. Likely post fall, follow labs, could be contributing to renal failure. 8. Mildy elevated Tropinin which could be due to renal failure. Follow level. 9. Elevated BNP. Need to carefully manage fluid and Sodium management. Continue to assess clinically and labs. Follow labs and clinically. Substitute Decision Maker - Chloe Kelley. Time Spent With Patient Critical Care time: I spent a total of [] minutes of critical care time on this patient's care today; this time is exclusive of procedural time.
--- NOTE | 2021-07-15 18:11 | PC.NURSE ---
Pt to room 220 via stretcher from ER with Spouse at the bedside. Pt is awake and alert-slightly hard of hearing and oriented to name, bd, age, place, and year. Pt transferred to bed with slider board. Pt denies pain, nausea, shortness of breath, dizziness, or chest pain. Pt authorized Spouse to assist with admission questions. No hearing aids with Pt but he does wear them at home. Wearing glasses. Skin assessment completed - Pt has scattered bruising to his back, legs, bottom, and arms and scattered small scratches and scabs that are intact. Pt denies falls but has been weak and dizzy leading up to his ER visit. Pt denies bloody stool or blood in the toilet when he voids. Bed alarm on for safety. Pt denies needs at this time. Upon entry to room 220 Pt's Spouse was asked by this nurse her name, which she stated was Mrs. Kelley or Chloe but the capacity planning manager are looking for me so..... Pt's Spouse appears calm and cooperative at this time.
[2021-07-15 19:02] LABS: Appearance Urine UA CLEAR; Bilirubin Urine UA NEGATIVE (NEGATIVE); Color Urine UA YELLOW; Glucose Urine UA NEGATIVE (Negative); Ketones Urine UA NEGATIVE (NEGATIVE); Leukocyte Esterase Urine UA TRACE (NEGATIVE); Nitrite Urine UA NEGATIVE (Negative); Occult Blood Urine UA 1+ (Negative); Protein Urine UA 1+ (Negative); Specific Gravity Urine UA 1.015 (1.000-1.035); Urobilinogen Urine UA 0.2 E.U./dL (0.2)
[2021-07-15 19:33] LABS: Bacteria Urine Many (>30); Culture Indicated Urine Specimen Cultured; RBC Urine None Seen (0-5/HPF); Squamous Epithelial Cell Urine None Seen (0-5/HPF); WBC Urine 1-5/HPF (0-5/HPF)
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
[2021-07-15] MEDS: cloNIDine 0.1 MG TABLET PO (21:32)
[2021-07-15] MEDS: MEMANTINE HCL 5 MG TABLET 10 MG PO (21:32)
[2021-07-15] MEDS: GABAPENTIN 300 MG CAPSULE PO (21:33)
[2021-07-15] MEDS: PRAVASTATIN 20 MG TABLET PO (21:33)
[2021-07-15] MEDS: FINASTERIDE 5 MG TABLET PO (21:33)
[2021-07-15] MEDS: FUROSEMIDE 20 MG/2 ML VIAL IV (23:54)
[2021-07-16] VITALS (8 sets, daily range): BP systolic 98–136; BP diastolic 54–88; PULSE 71–114; RESP 17–20; TEMP 36.3–36.9; O2SAT 92–100
[2021-07-16 06:04] LABS: Hematocrit 28.9 % (41-53); Hemoglobin 9.6 g/dL (13.5-17.5); Mean Corpuscular HGB Conc 33.1 % (30-36); Mean Corpuscular Hemoglobin 31.9 PG (26-34); Mean Corpuscular Volume 96.2 fL (80-100); Red Cell Distribution Width 23.4 % (11.6-14.8); White Blood Cell Count 8.7 X10^3/uL (4.5-11.0)
[2021-07-16 06:08] LABS: Add Manual Diff / Slide Review YES; Albumin 3.3 g/dL (3.5-5.0); BUN Creatinine Ratio 18.7 (6-22); Blood Urea Nitrogen 47 mg/dL (9-20); Calcium 7.8 mg/dL (8.4-10.2); Carbon Dioxide 19 mmol/L (22-32); Chloride 109 mmol/L (98-107); Creatine Kinase 276 U/L (55-170); Estimated Glomerular Filt Rate 25 mL/min (>60); Glucose 109 mg/dL (80-110); HEMOLYSIS < 15 (0-50); Phosphorous 7.6 mg/dL (2.3-3.7); Potassium 4.9 mmol/L (3.4-5.1); Sodium 138 mmol/L (137-145)
[2021-07-16 06:12] LABS: Platelet Count 35 X10^3/uL (150-400)
[2021-07-16] MEDS: LEVOTHYROXINE 50 MCG TABLET PO (06:16)
[2021-07-16 06:32] LABS: Neutrophils Absolute Manual 6960 /uL (3000-5900); Nucleated Red Blood Cells 19 #/Diff; Total Cells Counted 100
[2021-07-16 06:33] LABS: Platelet Estimate Decreased on smear; Polychromasia 2+
[2021-07-16 06:34] LABS: Anisocytosis 3+
--- NOTE | 2021-07-16 06:45 | PC.NURSE ---
Dr. Rangel informed of pts. platelet result this am of 35, no further order received.
[2021-07-16] MEDS: FLUTICASONE 120 SPRAY/16 GM SPRAY.SUSP NASAL (09:34)
[2021-07-16] MEDS: TAMSULOSIN 0.4 MG CAPSULE PO (09:35)
[2021-07-16] MEDS: FERROUS SULFATE 325 MG TABLET PO (09:35)
[2021-07-16] MEDS: ASPIRIN EC 81 MG TABLET PO (09:35)
[2021-07-16] MEDS: MEMANTINE HCL 5 MG TABLET 10 MG PO ×2 (09:42→21:33)
--- NOTE | 2021-07-16 09:42 | DIET.CONS ---
Dietary Consultation Note Admission Date: 07/15/2021 16:18 Assessment: 81y M admitted for weakness and frequent falls referred to nutrition for low MNA and reported weight loss. Pt has hx dementia, HTN, CKD3-4 with recent PSA elevated from 6 (1) to 15 (05/05) c imaging concerning for osseous metastatic disease with associated unintentional weight loss of 15% in 5 mo (severe). Pt has been experiencing gradual weight loss over 2 years, is 24% under UBW but most concerning is steep drop in weight 15% since February 2021. Pt spouse reported to PCP to having significantly more trouble with self care and is unable to meet nutrition needs to maintain weight despite efforts. Pts eGFR 25, Creatinine 2.54, Phosphorus 7.6 and K+ on admit was >5. Recc initiating Renal diet for pt to moderate protein, limit phos containing dairy products, and moderate potassium which is still borderline high at 4.9. Pt weight loss likely attributable to advancing dementia c reduced awareness of hunger and thirst cues, advancing CKD, and possible oncological process. Ht: 172.72 cm Wt: 67.7 kg BMI: 22.6 UBW: 97kg (2017) Last BM: 07/16/21 (07/16/21 06:43) MNA: 9 Julien Score: 17 Diet: 07/16/21 Breakfast General (Regular) Diet Diet Modifications: Labs: RBC 3.00 X10^6/uL (4.5-5.9) L 07/16/21 05:10 Hgb 9.6 g/dL (13.5-17.5) L 07/16/21 05:10 Hct 28.9 % (41-53) L 07/16/21 05:10 Creatinine 2.52 mg/dL (0.66-1.25) H 07/16/21 05:10 Lactate 1.4 mmol/L (0.7-2.1) 07/15/21 15:48 NT-Pro-B Natriuret Pep 05676 pg/mL (<450) H 07/15/21 13:34 Nutrition Diagnosis: Severe acute on chronic protein calorie malnutrition r/t reduced hunger/thirst cues secondary to advancing dementia and hypermetabolism secondary to possible oncologic process aeb 15% unintentional weight loss in 5mo (severe) despite efforts to increase PO intake, pt admitted for weakness c frequent falls, PSA elevation concurrent c start of weight loss and imaging concerning for osseous metastatic disease. Interventions: 1. Adjusting pt to Renal diet to support kidney health as phosphorus, creatinine and potassium all elevated on admit. 2. Sending ONS Nepro bid to support nutrition and hydration status in renal friendly formula. EER: 2,000kcals (30kcal/kg), 55g PRO (per renal) Monitoring/Evaluations: POs, ONS tolerance, POC Electronically Signed by: Sita Carbajal 07/16/21 09:42 [address] [address]
[2021-07-16] MEDS: DORZOLAMIDE/TIMOLOL OPHTH 10 ML 1 DROPS EYE-BOTH ×2 (09:58→21:24)
[2021-07-16 12:35] LABS: Hematocrit 29.4 % (41-53); Hemoglobin 9.9 g/dL (13.5-17.5); Mean Corpuscular HGB Conc 33.5 % (30-36); Mean Corpuscular Hemoglobin 32.1 PG (26-34); Mean Corpuscular Volume 95.8 fL (80-100); Platelet Count 37 X10^3/uL (150-400); Red Blood Cell Count 3.07 X10^6/uL (4.5-5.9); Red Cell Distribution Width 23.6 % (11.6-14.8); White Blood Cell Count 9.3 X10^3/uL (4.5-11.0)
[2021-07-16 12:37] LABS: Add Manual Diff / Slide Review YES
[2021-07-16 13:00] LABS: Anisocytosis 2+; Neutrophils Absolute Manual 6975 /uL (3000-5900); Nucleated Red Blood Cells 26 #/Diff; Polychromasia 1+; Total Cells Counted 100
[2021-07-16 13:12] LABS: HEMOLYSIS < 15 (0-50); Iron 89 ug/dL (49-181)
[2021-07-16 13:23] LABS: Percent Iron Saturation 39 % (20-50); Total Iron Binding Capacity 230 ug/dL (261-462); Transferrin 138 mg/dL (206-381)
[2021-07-16 14:02] LABS: Vitamin B12 > 1000 pg/mL (239-931)
--- NOTE | 2021-07-16 19:17 | P.PN_ITS ---
Subjective Subjective Interval history: Daily hospitalists visit. Patient and his say that he is in his normal cognition state currently. Exam Vital Signs (past 8 hours): - 07/16/21 13:00 07/16/21 17:00 Temperature 97.3 F L 98.3 F Pulse Rate 87 88 Respiratory Rate 19 20 Blood Pressure 98/68 105/74 Pulse Oximetry 92 95 Oxygen Delivery Method Nasal Cannula Oxygen Flow Rate 0 Objective Labs Result Diagrams: 07/16/21 12:05 07/16/21 05:10 Labs: Laboratory Results - last 24 hr 07/15/21 07/15/21 07/15/21 13:15 17:20 22:08 WBC RBC Hgb Hct MCV MCH MCHC RDW Plt Count Neut % (Auto) Lymph % (Auto) [place] % (Auto) Eos % (Auto) Baso % (Auto) Lymph # (Auto) [place] # (Auto) Baso # (Auto) Total Counted Seg Neutrophils % Band Neutrophils % Lymphocytes % (Manual) Atypical Lymphs % Monocytes % (Manual) Metamyelocytes % Neutrophils # (Manual) Nucleated RBCs Platelet Estimate RBC Morphology Polychromasia Anisocytosis Sodium Potassium Chloride Carbon Dioxide BUN Creatinine Estimated GFR BUN/Creatinine Ratio Glucose Calcium Phosphorus Iron TIBC % Saturation Transferrin Total Creatine Kinase Troponin I 1.870 H* Albumin Vitamin B12 Urine RBC None seen Urine WBC 1-5/hpf Ur Squamous Epith Cells None seen Urine Bacteria Many (>30) H Ur Culture Indicated? Specimen cultured Crossmatch See Detail 07/16/21 07/16/21 07/16/21 05:10 05:10 12:05 WBC 8.7 9.3 RBC 3.00 L 3.07 L Hgb 9.6 L 9.9 L Hct 28.9 L 29.4 L MCV 96.2 D 95.8 MCH 31.9 32.1 MCHC 33.1 33.5 RDW 23.4 H 23.6 H Plt Count 35 L* 37 L Neut % (Auto) Not Reportable Not Reportable Lymph % (Auto) Not Reportable Not Reportable [place] % (Auto) Not Reportable Not Reportable Eos % (Auto) Not Reportable Not Reportable Baso % (Auto) Not Reportable Not Reportable Lymph # (Auto) Not Reportable Not Reportable [place] # (Auto) Not Reportable Not Reportable Baso # (Auto) Not Reportable Not Reportable Total Counted 100 100 Seg Neutrophils % 75.0 H 68.0 Band Neutrophils % 5.0 7.0 Lymphocytes % (Manual) 13.0 L 14.0 L Atypical Lymphs % 4.0 H Monocytes % (Manual) 4.0 6.0 Metamyelocytes % 3.0 H 1.0 H Neutrophils # (Manual) 6960 H 6975 H Nucleated RBCs 19 H 26 H Platelet Estimate Decreased on smear RBC Morphology See below Not Reportable Polychromasia 2+ H 1+ H Anisocytosis 3+ H 2+ H Sodium 138 Potassium 4.9 Chloride 109 H Carbon Dioxide 19 L BUN 47 H Creatinine 2.52 H Estimated GFR 25 L BUN/Creatinine Ratio 18.7 Glucose 109 Calcium 7.8 L Phosphorus 7.6 H Iron TIBC % Saturation Transferrin Total Creatine Kinase 276 H Troponin I Albumin 3.3 L Vitamin B12 Urine RBC Urine WBC Ur Squamous Epith Cells Urine Bacteria Ur Culture Indicated? Crossmatch 07/16/21 07/16/21 12:05 12:05 WBC RBC Hgb Hct MCV MCH MCHC RDW Plt Count Neut % (Auto) Lymph % (Auto) [place] % (Auto) Eos % (Auto) Baso % (Auto) Lymph # (Auto) [place] # (Auto) Baso # (Auto) Total Counted Seg Neutrophils % Band Neutrophils % Lymphocytes % (Manual) Atypical Lymphs % Monocytes % (Manual) Metamyelocytes % Neutrophils # (Manual) Nucleated RBCs Platelet Estimate RBC Morphology Polychromasia Anisocytosis Sodium Potassium Chloride Carbon Dioxide BUN Creatinine Estimated GFR BUN/Creatinine Ratio Glucose Calcium Phosphorus Iron 89 TIBC 230 L % Saturation 39 Transferrin 138 L Total Creatine Kinase Troponin I Albumin Vitamin B12 > 1000 H Urine RBC Urine WBC Ur Squamous Epith Cells Urine Bacteria Ur Culture Indicated? Crossmatch COUNT INCLUDES THE [facility] Medical History Anemia Ataxia BPH (benign prostatic hyperplasia) Cellulitis Chronic back pain CKD (chronic kidney disease) Cognitive decline Eczema (~1969) Hearing deficit Hypothyroidism Olecranon bursitis PSA elevation Shoulder pain (~2014) Skin lesion Tinea Vision disorder Weight loss due to medication Well adult exam Surgical History Colon polyps Family History Father Heart disease Social History household members: spouse Smoking Status: Former smoker alcohol intake: former substance use type: does not use Assessment & Plan Assessment & Plan narrative: This is a 81-year-old male with history of? ataxia, BPH, CKD, dementia and hypothyroidism who arrived via EMS on day of presentation, he was complaining of generalized weakness and just feeling generally unwell.? He was noted to be severely anemic and provided with the transfusions. Diagnoses as follows: 1. Low Hb in patient already receiving iron replacement. Transfusion completed. Hemoglobin improved to 9.9. Follow labs to ensure stability. 2. Elevated Band. Be vigilant for an infection. Urine culture shows positive for bacteria. Will start ceftriaxone 1 g IV every 24 hours. 3. Elevated PT and INR. 4. Hyponatremia. Mild, currently corrected.. 5. Hyperkalemia. Currently corrected. 6. Elevated Creatinine and GFR. Has CKD, provide IV fluids And follow labs. Renal failure increased today. 7. Elevated CK. Likely post fall, follow labs, could be contributing to renal failure. CK level is decreasing. 8. Mildy elevated Tropinin which could be due to renal failure. Has increased to ensure decreasing pattern with measurement tomorrow 9. Elevated BNP. Need to carefully manage fluid and Sodium management. BP unable to handle more diuresis. Follow labs and clinically. Time Spent With Patient Critical Care time: I spent a total of [] minutes of critical care time on this patient's care toda y; this time is exclusive of procedural time.
--- NOTE | 2021-07-16 20:44 | PM.EVENT ---
Event Note Date Patient Seen: 07/16/21 Event Note (Rapid Response, Code, or fall): I was called to evaluate the patient for an episode of AFib RVR at 10:20 p.m. On July 16. vital signs at the time shows borderline blood pressures with SBP in 100s, patient seems to be comfortable, converted to normal sinus rhythm with a heart rate into 90s within a few minutes. Twelve lead EKG did not show any acute abnormalities. I tried to call his to discuss the care plan, give update, unable to reach her, left a voicemail. Patient went into AFib but about again around 12:30 a.m., July 17. Patient seems to be comfortable. He continues to have heart rate 120s. EKG is pending at this time. There is an episode of hypoxia documented a pulse ox in 70s on room air, patient was placed on 2 L nasal cannula, does not seem to be in distress, stat chest x-ray ordered. Pending review. Patient had blood transfusion for his anemia. He does not seem to be in respiratory distress. Based on chest x-ray will consider giving him Lasix. I am going to hold his lisinopril given his borderline blood pressure. Patient does not seem to be hypovolemic at this time. His urine output also seems to be reasonable. The triggering of atrial fibrillation most likely related to hypoxia, unclear reason for hypoxia at this time. Will continue to monitor the patient very closely. Unfortunately overall prognosis is poor.
--- NOTE | 2021-07-16 20:50 | PC.NURSE ---
PATIENT IN AND OUT OF AFIB PER ICU,VITALS TAKEN,EKG . . MADE AWARE, NO NEW ORDERS
[2021-07-16] MEDS: cefTRIAXone 1,000 MG in SODIUM CHLORIDE 0.9% 100 ML 200 MG IV (21:10)
[2021-07-16] MEDS: PRAVASTATIN 20 MG TABLET PO (21:23)
[2021-07-16] MEDS: cloNIDine 0.1 MG TABLET PO (21:23)
[2021-07-16] MEDS: GABAPENTIN 300 MG CAPSULE PO (21:23)
[2021-07-16] MEDS: FINASTERIDE 5 MG TABLET PO (21:24)
[2021-07-17] VITALS (11 sets, daily range): BP systolic 92–137; BP diastolic 67–88; PULSE 83–130; RESP 17–20; TEMP 36.3–36.9; O2SAT 77–99
--- NOTE | 2021-07-17 00:40 | DI.RAD.S_ITS ---
PROCEDURE: XR CHEST 1V INDICATIONS: At Bedside, Hypoxic Event TECHNIQUE: One view of the chest was acquired. COMPARISON: [facility], , XR CHEST 1V, 07/15/2021, 13:52. FINDINGS: Surgical changes and devices: None. Lungs and pleura: Lungs are clear. No pleural effusions or pneumothorax. Mediastinum: Mediastinal contours appear normal. Heart size is normal. Bones and chest wall: No suspicious bony lesions. Overlying soft tissues appear unremarkable. IMPRESSION: 1. No acute cardiopulmonary disease. Dictated by: Hunter Khanna M.D. on 07/17/2021 at 2:21 Approved by: Hunter Khanna M.D. on 07/17/2021 at 2:22
--- NOTE | 2021-07-17 01:09 | PM.EVENT ---
Event Note Date Patient Seen: 07/17/21 Event Note (Rapid Response, Code, or fall): Chest x-ray reviewed. Did not show any acute abnormalities. Patient continues to be tachycardic in 120s. IV metoprolol 1 dose ordered. P.o. metoprolol 25 mg b.i.d. starting in the morning. Goals of care need to be addressed in the morning. Bone metastasis is also concerning. Overall the prognosis is poor. Will continue to monitor the patient.
[2021-07-17] MEDS: METOPROLOL TARTRATE 5 MG/5 ML INJ IV (01:22)
[2021-07-17 06:14] LABS: Albumin 2.9 g/dL (3.5-5.0); BUN Creatinine Ratio 25.2 (6-22); Blood Urea Nitrogen 52 mg/dL (9-20); Calcium 8.3 mg/dL (8.4-10.2); Carbon Dioxide 20 mmol/L (22-32); Chloride 108 mmol/L (98-107); Chloride 109 mmol/L (98-107); Estimated Glomerular Filt Rate 32 mL/min (>60); Glucose 113 mg/dL (80-110); HEMOLYSIS < 15 (0-50); Phosphorous 5.3 mg/dL (2.3-3.7); Potassium 3.8 mmol/L (3.4-5.1); Potassium 3.9 mmol/L (3.4-5.1); Sodium 135 mmol/L (137-145); Sodium 138 mmol/L (137-145)
[2021-07-17 06:18] LABS: Hematocrit 26.4 % (41-53); Hemoglobin 8.8 g/dL (13.5-17.5); Mean Corpuscular HGB Conc 33.2 % (30-36); Mean Corpuscular Hemoglobin 32.1 PG (26-34); Mean Corpuscular Volume 96.7 fL (80-100); Red Blood Cell Count 2.73 X10^6/uL (4.5-5.9); Red Cell Distribution Width 23.9 % (11.6-14.8); White Blood Cell Count 6.4 X10^3/uL (4.5-11.0)
[2021-07-17 06:40] LABS: Add Manual Diff / Slide Review YES; Platelet Count 27 X10^3/uL (150-400)
[2021-07-17 06:43] LABS: TSH w/ Reflex to FT4 1.02 uIU/mL (0.47-4.68)
[2021-07-17 07:24] LABS: Neutrophils Absolute Manual 5248 /uL (3000-5900); Nucleated Red Blood Cells 10 #/Diff; Total Cells Counted 100
[2021-07-17 07:25] LABS: Platelet Estimate Decreased on smear; Polychromasia 2+
[2021-07-17 07:26] LABS: Anisocytosis 3+
[2021-07-17] MEDS: METOPROLOL IR 25 MG TABLET PO ×2 (07:48→21:15)
[2021-07-17] MEDS: LEVOTHYROXINE 50 MCG TABLET PO (07:48)
[2021-07-17] MEDS: TAMSULOSIN 0.4 MG CAPSULE PO (08:45)
[2021-07-17] MEDS: cloNIDine 0.1 MG TABLET PO ×2 (08:45→20:30)
[2021-07-17] MEDS: ASPIRIN EC 81 MG TABLET PO (08:45)
[2021-07-17] MEDS: MONTELUKAST 10 MG TABLET PO (08:46)
[2021-07-17] MEDS: FERROUS SULFATE 325 MG TABLET PO (08:46)
[2021-07-17] MEDS: MEMANTINE HCL 5 MG TABLET 10 MG PO ×2 (08:46→21:14)
[2021-07-17] MEDS: FLUTICASONE 120 SPRAY/16 GM SPRAY.SUSP NASAL (08:48)
[2021-07-17] MEDS: DORZOLAMIDE/TIMOLOL OPHTH 10 ML 1 DROPS EYE-BOTH ×2 (08:49→20:23)
[2021-07-17] MEDS: SODIUM CHLORIDE 5% 1 EACH EYE-RIGHT ×2 (08:53→20:23)
--- NOTE | 2021-07-17 14:49 | DI.CT.S_ITS ---
PROCEDURE: CT CHEST ABD PEL W CON INDICATIONS: Asses for colon/lung CA, assess local spread of Prostate CA TECHNIQUE: After the administration of intravenous contrast, axial sections acquired from the supraclavicular neck to the pubic symphysis. Coronal and sagittal reformats were performed. For radiation dose reduction, the following was used: automated exposure control, adjustment of mA and/or kV according to patient size. COMPARISON: [facility], CT, CT KIDNEY URETER BLADDER (KUB), 07/15/2021, 14:32. FINDINGS: Image quality: Excellent. CHEST: Lower Neck: Mild asymmetric thickening at the right inferior neck, (2/11). Thyroid: Within normal limits. Axillae: No enlarged lymph nodes. Chest Wall: Unremarkable. Lungs and Airways: Subtle ground-glass opacity in the right upper and right lower lobes, (3/152, 219). Subtly seen at the right lower lobe in retrospect. Pleura: Trace bilateral pleural effusions. Heart: Heart size is normal. Moderate coronary artery calcifications. Trace pericardial fluid. Thoracic Vessels: The aorta and pulmonary arteries demonstrate normal size. No central pulmonary embolism. Mediastinum and Catie: No enlarged lymph nodes. Esophagus: No wall thickening. No hiatal hernia. ABDOMEN: Liver: Hypodensity in the right lobe of the liver which appears well-circumscribed, unchanged. Favor a benign cyst. Gallbladder: Not distended. Small calcified gallstone. Biliary ducts: Unremarkable. Pancreas: Unremarkable. Spleen: Unremarkable. Adrenal Glands: Nodular thickening of the left adrenal gland. Kidneys and Ureters: No hydronephrosis. Small cortical hypodensities too small to further characterize. Stomach and Bowel: There is mild thickening and stranding near the duodenum. No small bowel obstruction. Diverticulosis. The appendix is not identified. Peritoneum: No abnormal intraperitoneal fluid. Presacral edema. Ventral Wall: No hernia. Mild anasarca. Abdominal Nodes: No retroperitoneal or mesenteric adenopathy by size criteria. Vessels: Aorta and inferior vena cava are normal in size. Moderate plaque. PELVIS: Pelvic Organs: Unremarkable. Bladder: Bladder is mostly decompressed with Humphreys catheter. There is bladder wall thickening. Pelvic Nodes: No enlarged lymph nodes. Miscellaneous: No inguinal hernias are seen. Bones: Numerous sclerotic osseous metastases. IMPRESSION: 1. Diffuse sclerotic osseous metastases. 2. No adenopathy. 3. Trace bilateral pleural effusions. A few areas of subtle ground-glass opacity in the right lung. This could be due to low-grade infectious/inflammatory etiology. 4. There is a thickening and stranding about the duodenum. Presacral edema. Findings could be due to an enteritis. 5. Question mild thickening at the right lower neck. 6. Cholelithiasis. 7. Bladder is mostly decompressed with Humphreys catheter. The bladder wall appears thickened. Dictated by: Sanket Kearney M.D. on 07/17/2021 at 15:34 Approved by: Sanket Kearney M.D. on 07/17/2021 at 15:53
--- NOTE | 2021-07-17 14:58 | PM.PN.1 ---
Subjective Subjective Interval history: Hospitalist daily progress note. This is a 81-year-old male with history of? ataxia, BPH, CKD, dementia and hypothyroidism who presented with complaining of generalized weakness and just feeling generally unwell.? For several days this was been ongoing.? No fevers, no headache or lightheadedness or passing out. has been difficult to move about and needs assistance with person, walker and cane mostly.? No chest pain or shortness of breath. No nausea or vomiting.? No dysuria, urgency or frequency, decrease in urine output or dark urine, no diarrhea or constipation.? No black or bloody stools.? No one-sided weakness or lateralizing symptoms.? Not any cough, cold or congestion.? He presents with EMS his had contacted EMS. He does have? history of dementia and states he has memory issues and his largely speaks for him since she knows the details and is his caregiver.? He is unable to give a full medical history or surgical history.? He has noted that his primary care physician is Dr. Quiros. Last evening urine culture positive and episode of rapid atrial fibrillation with initiation of metoprolol. Of note his CT abdomen also has shown possibly magaly mets and platelets have continued to decrease. now 27. This combination of findings in light of fatigue and patient reporting weight loss recently as well as need for transfusion on presentation, is concerning for Leukemia of other cancer with mets to bone. There is need to entertain possible colon cancer in patient with previous polyp removed, prostate cancer in patient with pending Urology consult or lung cancer. Will do blood smear, Contrast CT of chest, abdomen and pelvis as well as sensitive PSA. Due to poor renal function will need to provide intravenous normal saline now and during and after the contrast imaging with following of the BUN and creatinine. This plan was discussed with the and the patient. Will follow platelets now and in the morning. Exam Vital Signs (past 8 hours): - 07/17/21 08:00 07/17/21 08:45 07/17/21 12:00 Temperature 98.4 F 97.8 F Pulse Rate 92 H 83 85 Respiratory Rate 18 18 Blood Pressure 137/88 121/81 101/75 Pulse Oximetry 98 91 Oxygen Delivery Method Nasal Cannula Oxygen Flow Rate 0 Narrative Exam Narrative: Patient alert and oriented to person. Otherwise defers everything to his . HEENT: Patient wears glasses. Pupils are equal and reactive to light extraocular movements are normal. Cardiovascular: Heart sounds S1 and S2 Respiratory: Chest is clear to auscultation. Gastrointestinal: Abdomen is soft. Nontender. Bowel sounds present Musculoskeletal: Able to move all extremities volitionally. Genitourinary: Positive urine culture. Patient has been started on ceftriaxone intravenous treatment. Based on sensitivity the patient can transition to Cipro. This is been completed. Objective Labs Result Diagrams: 07/17/21 05:27 07/17/21 05:27 Labs: Laboratory Results - last 24 hr 07/17/21 07/17/21 07/17/21 05:27 05:27 05:27 WBC 6.4 RBC 2.73 L Hgb 8.8 L Hct 26.4 L MCV 96.7 MCH 32.1 MCHC 33.2 RDW 23.9 H Plt Count 27 L* Neut % (Auto) Not Reportable Lymph % (Auto) Not Reportable [place] % (Auto) Not Reportable Eos % (Auto) Not Reportable Baso % (Auto) Not Reportable Lymph # (Auto) Not Reportable [place] # (Auto) Not Reportable Baso # (Auto) Not Reportable Total Counted 100 Seg Neutrophils % 77.0 H Band Neutrophils % 5.0 Lymphocytes % (Manual) 11.0 L Monocytes % (Manual) 4.0 Eosinophils % (Manual) 2.0 Myelocytes % 1.0 H Neutrophils # (Manual) 5248 Nucleated RBCs 10 H Platelet Estimate Decreased on smear RBC Morphology See below Polychromasia 2+ H Anisocytosis 3+ H Sodium 138 Potassium 3.8 Chloride 108 H Carbon Dioxide 20 L BUN Creatinine Estimated GFR BUN/Creatinine Ratio Glucose Calcium Phosphorus Albumin TSH 1.02 07/17/21 05:27 WBC RBC Hgb Hct MCV MCH MCHC RDW Plt Count Neut % (Auto) Lymph % (Auto) [place] % (Auto) Eos % (Auto) Baso % (Auto) Lymph # (Auto) [place] # (Auto) Baso # (Auto) Total Counted Seg Neutrophils % Band Neutrophils % Lymphocytes % (Manual) Monocytes % (Manual) Eosinophils % (Manual) Myelocytes % Neutrophils # (Manual) Nucleated RBCs Platelet Estimate RBC Morphology Polychromasia Anisocytosis Sodium 135 L Potassium 3.9 Chloride 109 H Carbon Dioxide 20 L BUN 52 H Creatinine 2.06 H Estimated GFR 32 L BUN/Creatinine Ratio 25.2 H Glucose 113 H Calcium 8.3 L Phosphorus 5.3 H D Albumin 2.9 L TSH [facility] Medical History Anemia Ataxia BPH (benign prostatic hyperplasia) Cellulitis Chronic back pain CKD (chronic kidney disease) Cognitive decline Eczema (~1969) Hearing deficit Hypothyroidism Olecranon bursitis PSA elevation Shoulder pain (~2014) Skin lesion Tinea Vision disorder Weight loss due to medication Well adult exam Surgical History Colon polyps Family History Father Heart disease Social History household members: spouse Smoking Status: Former smoker alcohol intake: former substance use type: does not use Assessment & Plan Assessment & Plan narrative: 1. Low Hb in patient already receiving iron replacement.? Transfusion completed.? Hemoglobin improved to 8.8 today. Low platelets are decreasing. Today is 27 . Continue to follow closely. Need to assess for leukemia. 2. Urinary tract infection. Patient has been transitioned to Cipro due to sensitivity. 3. Elevated PT and INR on presentation 4. Hyponatremia. Current 135. 5. Hyperkalemia.? Currently corrected. 6. Elevated Creatinine and GFR low. Has CKD, provide IV fluids And follow labs.? 7. Elevated CK. Likely post fall, follow labs, could be contributing to renal failure.? CK level is decreasing. 8. Mildy elevated Troponin and increasing which could be due to renal failure.? Unable to treat with anticoagulation if and non-STEMI due to low hemoglobin and platelets. Follow tomorrow. 9. Elevated BNP. Need to carefully manage fluid and Sodium management. 10. Episode last night of atrial fibrillation settle with metoprolol. Unable to put patient on anticoagulation due to anemia and low platelets. 10. Possible bony Mets noted on previous CT for kidney/bladder. Need to clarify if possible leukemia, multiple myeloma, colon cancer in patient with previous polyp removed, prostate cancer in patient with pending Urology consult or lung cancer. Will do blood smear to asses for leukemia, workup for multiple myeloma, Contrast CT of chest, abdomen and pelvis as well as sensitive PSA. Due to poor renal function will need to provide intravenous normal saline now and during and after the contrast imaging with following of the BUN and creatinine. This plan was discussed with the and the patient. Will follow platelets now and in the morning. Follow labs, imaging and clinically. Of note: CT with contrast of the chest and abdomen/pelvis showed no indication of cancer mass or adenopathy. Time Spent With Patient Critical Care time: I spent a total of [] minutes of critical care time on this patient's care today; this time is exclusive of procedural time.
[2021-07-17] MEDS: SODIUM CHLORIDE 0.9% 1,000 ML 100 ML IV (15:43)
--- NOTE | 2021-07-17 18:50 | PC.NURSE ---
Pt is AxOx1-2, cooperative and pleasant. VSS, pt denies pain. Pt is eating and drinking well. Humphreys is draining clear, yellow urine. Pt is spouse is in the room all day. Pt is receiving NS 100ml/hr continous. Lab: Plt-27L, Na-135L, his HH are dropping slightly. Pt's was very concerned about pt's current finding on CT that shows mets to bone. Pt has been stable today. No other changes.
--- NOTE | 2021-07-17 18:53 | DI.RAD.S_ITS ---
PROCEDURE: XR BONE SURVEY INDICATIONS: Assess for multiple myeloma TECHNIQUE: Multiple views obtained of various bony structures as described below. COMPARISON: [facility], CT, CT CHEST ABD PEL W CON, 07/17/2021, 14:58. FINDINGS: Skull (lateral): No suspicious bony lesions. No fractures. Thoracic spine (AP, lateral): Diffusely heterogeneous appearance of the thoracic spine and ribs is consistent with multiple sclerotic metastases, as seen on CT performed earlier the same day. Lumbar spine (AP, lateral): Diffusely heterogeneous appearance of the lumbar spine is consistent with multiple sclerotic metastases, as seen on CT performed earlier the same day. Pelvis (AP): Heterogeneous appearance of the pelvic bones and proximal femurs is consistent with diffuse sclerotic metastatic disease as seen on recent CT. Right and left humeri (AP): A few small sclerotic lesions are seen in the right proximal to mid humerus. Possible small left humeral sclerotic lesions. Right and left femurs (AP): Possible small sclerotic lesion at the lateral aspect of the right distal femoral metadiaphysis. No obvious left distal femoral osseous lesion. IMPRESSION: Diffuse sclerotic osseous metastatic disease, better demonstrated on the CT of the chest, abdomen, and pelvis performed earlier the same day. Dictated by: Berhane Stewart M.D. on 07/17/2021 at 19:33 Approved by: Berhane Stewart M.D. on 07/17/2021 at 19:38
[2021-07-17] MEDS: LATANOPROST 0.005% OPHTH 2.5 ML 1 DROPS EYE-BOTH (20:23)
[2021-07-17] MEDS: FINASTERIDE 5 MG TABLET PO (20:24)
[2021-07-17] MEDS: CIPROFLOXACIN 250 MG TABLET PO (20:24)
[2021-07-17] MEDS: TRAZODONE 50 MG TABLET PO (20:24)
[2021-07-17] MEDS: GABAPENTIN 300 MG CAPSULE PO (20:24)
[2021-07-17] MEDS: PRAVASTATIN 20 MG TABLET PO (20:24)
--- NOTE | 2021-07-17 20:55 | PM.PN.1 ---
Exam Vital Signs (past 8 hours): - 07/17/21 16:00 07/17/21 19:28 07/17/21 20:30 Temperature 98.4 F 97.9 F Pulse Rate 86 88 88 Respiratory Rate 17 18 Blood Pressure 118/80 127/82 127/82 Pulse Oximetry 95 96 Oxygen Delivery Method Nasal Cannula Oxygen Flow Rate 0 Objective Labs Result Diagrams: 07/17/21 05:27 07/17/21 05:27 Labs: Laboratory Results - last 24 hr 07/17/21 07/17/21 07/17/21 05:27 05:27 05:27 WBC 6.4 RBC 2.73 L Hgb 8.8 L Hct 26.4 L MCV 96.7 MCH 32.1 MCHC 33.2 RDW 23.9 H Plt Count 27 L* Neut % (Auto) Not Reportable Lymph % (Auto) Not Reportable [place] % (Auto) Not Reportable Eos % (Auto) Not Reportable Baso % (Auto) Not Reportable Lymph # (Auto) Not Reportable [place] # (Auto) Not Reportable Baso # (Auto) Not Reportable Total Counted 100 Seg Neutrophils % 77.0 H Band Neutrophils % 5.0 Lymphocytes % (Manual) 11.0 L Monocytes % (Manual) 4.0 Eosinophils % (Manual) 2.0 Myelocytes % 1.0 H Neutrophils # (Manual) 5248 Nucleated RBCs 10 H Platelet Estimate Decreased on smear RBC Morphology See below Polychromasia 2+ H Anisocytosis 3+ H Sodium 138 Potassium 3.8 Chloride 108 H Carbon Dioxide 20 L BUN Creatinine Estimated GFR BUN/Creatinine Ratio Glucose Calcium Phosphorus Albumin TSH 1.02 07/17/21 05:27 WBC RBC Hgb Hct MCV MCH MCHC RDW Plt Count Neut % (Auto) Lymph % (Auto) [place] % (Auto) Eos % (Auto) Baso % (Auto) Lymph # (Auto) [place] # (Auto) Baso # (Auto) Total Counted Seg Neutrophils % Band Neutrophils % Lymphocytes % (Manual) Monocytes % (Manual) Eosinophils % (Manual) Myelocytes % Neutrophils # (Manual) Nucleated RBCs Platelet Estimate RBC Morphology Polychromasia Anisocytosis Sodium 135 L Potassium 3.9 Chloride 109 H Carbon Dioxide 20 L BUN 52 H Creatinine 2.06 H Estimated GFR 32 L BUN/Creatinine Ratio 25.2 H Glucose 113 H Calcium 8.3 L Phosphorus 5.3 H D Albumin 2.9 L TSH [facility] Medical History Anemia Ataxia BPH (benign prostatic hyperplasia) Cellulitis Chronic back pain CKD (chronic kidney disease) Cognitive decline Eczema (~1969) Hearing deficit Hypothyroidism Olecranon bursitis PSA elevation Shoulder pain (~2014) Skin lesion Tinea Vision disorder Weight loss due to medication Well adult exam Surgical History Colon polyps Family History Father Heart disease Social History household members: spouse Smoking Status: Former smoker alcohol intake: former substance use type: does not use Assessment & Plan Assessment & Plan narrative: Documentation and comment about dietitian/Nutrition note. Note as follows: Nutrition Diagnosis:??Severe acute on chronic protein calorie malnutrition?r/t reduced hunger/thirst cues secondary to advancing dementia and hypermetabolism secondary to possible oncologic process aeb 15% unintentional weight loss in 5mo (severe) despite efforts to increase PO intake, pt admitted for weakness c frequent falls, PSA elevation concurrent c start of weight loss and imaging concerning for osseous metastatic disease. Interventions:? 1. Adjusting pt to Renal diet to support kidney health as phosphorus, creatinine and potassium all elevated on admit. 2. Sending ONS Nepro bid to support nutrition and hydration status in renal friendly formula. Monitoring/Evaluations:? POs, ONS tolerance, POC As the treating physician I am in agreement with this above assessment. Time Spent With Patient Critical Care time: I spent a total of [] minutes of critical care time on this patient's care today; this time is exclusive of procedural time.
[2021-07-18 05:07] LABS: Creatine Kinase 233 U/L (55-170); Hematocrit 25.2 % (41-53); Hemoglobin 8.5 g/dL (13.5-17.5); INR 1.5 (0.9-1.3); Mean Corpuscular HGB Conc 33.6 % (30-36); Mean Corpuscular Hemoglobin 31.9 PG (26-34); Prothrombin Time 16.9 SECONDS (10.1-12.7); Red Blood Cell Count 2.66 X10^6/uL (4.5-5.9); Red Cell Distribution Width 23.5 % (11.6-14.8); White Blood Cell Count 5.3 X10^3/uL (4.5-11.0)
[2021-07-18 05:12] VITALS: BP 113/74; PULSE 88; RESP 18; TEMP 36.1; O2SAT 93
[2021-07-18 05:13] LABS: Add Manual Diff / Slide Review YES; Platelet Count 24 X10^3/uL (150-400)
[2021-07-18 05:16] LABS: Albumin 2.6 g/dL (3.5-5.0); BUN Creatinine Ratio 29.1 (6-22); Blood Urea Nitrogen 46 mg/dL (9-20); C-Reactive Protein Quant 8.6 mg/dL (<1.0); Carbon Dioxide 21 mmol/L (22-32); Chloride 109 mmol/L (98-107); Estimated Glomerular Filt Rate 44 mL/min (>60); Glucose 111 mg/dL (80-110); HEMOLYSIS < 15 (0-50); Phosphorous 4.1 mg/dL (2.3-3.7); Potassium 3.4 mmol/L (3.4-5.1); Sodium 137 mmol/L (137-145)
[2021-07-18 05:22] LABS: CKMB % Relative Index 0.2 % (1.5-5.0); Creatine Kinase MB 0.56 ng/mL (<2.37)
--- NOTE | 2021-07-18 05:35 | PC.NURSE ---
Lab called with critical value at 0515: platelets [id number], continuing a down trend. Informed Dr Sanford at 0525.
--- NOTE | 2021-07-18 05:41 | PC.NURSE ---
Lab called with critical value at 0535: troponin [address] Sanford at 0542.
[2021-07-18] MEDS: LEVOTHYROXINE 50 MCG TABLET PO (06:26)
[2021-07-18] MEDS: CIPROFLOXACIN 250 MG TABLET PO ×2 (06:26→21:45)
[2021-07-18 07:02] LABS: Neutrophils Absolute Manual 4558 /uL (3000-5900); Nucleated Red Blood Cells 10 #/Diff; Total Cells Counted 100
[2021-07-18 07:03] LABS: Anisocytosis 3+
[2021-07-18 07:04] LABS: Platelet Estimate Decreased on smear
[2021-07-18 08:16] LABS: Lactate Dehydrogenase 1219 U/L (313-618)
[2021-07-18 08:20] LABS: PTT Partial Thromboplastin Tim 29 SECONDS (26.4-36.2)
[2021-07-18 08:27] LABS: Fibrinogen 292 mg/dL (211-428)
[2021-07-18 08:31] LABS: D Dimer > 5250 ng/mL (<230)
[2021-07-18 08:40] VITALS: BP 138/85; PULSE 89
[2021-07-18] MEDS: MONTELUKAST 10 MG TABLET PO (08:40)
[2021-07-18] MEDS: DORZOLAMIDE/TIMOLOL OPHTH 10 ML 1 DROPS EYE-BOTH ×2 (08:40→21:45)
[2021-07-18] MEDS: FERROUS SULFATE 325 MG TABLET PO (08:40)
[2021-07-18] MEDS: FLUTICASONE 120 SPRAY/16 GM SPRAY.SUSP NASAL (08:40)
[2021-07-18] MEDS: TAMSULOSIN 0.4 MG CAPSULE PO (08:40)
[2021-07-18] MEDS: SODIUM CHLORIDE 5% 1 EACH EYE-RIGHT ×2 (08:40→21:46)
[2021-07-18] MEDS: cloNIDine 0.1 MG TABLET PO (08:40)
[2021-07-18] MEDS: METOPROLOL IR 25 MG TABLET PO (08:42)
[2021-07-18] MEDS: MEMANTINE HCL 5 MG TABLET 10 MG PO ×2 (08:47→21:45)
[2021-07-18] MEDS: POTASSIUM CHLORIDE 20 MEQ TAB 40 MEQ PO (08:47)
[2021-07-18 08:49] VITALS: BP 138/85; PULSE 89; RESP 17; TEMP 36.6; O2SAT 94
[2021-07-18 08:52] LABS: Thyroid Stimulating Hormone 1.07 uIU/mL (0.47-4.68)
[2021-07-18 12:00] VITALS: BP 128/78; PULSE 87; RESP 18; TEMP 36.6; O2SAT 95
--- NOTE | 2021-07-18 14:00 | PT.IIE ---
Current Diagnoses Anemia, unspecified (07/15/21) Surgical History (Last Reviewed 07/15/21 @ 18:07 by Jeniffer Duncan MD) Colon polyps Medical History (Last Reviewed 07/15/21 @ 18:07 by Jeniffer Duncan MD) Anemia Ataxia BPH (benign prostatic hyperplasia) Cellulitis Chronic back pain CKD (chronic kidney disease) Cognitive decline Eczema (~1969) Hearing deficit Hypothyroidism Olecranon bursitis PSA elevation Shoulder pain (~2014) Skin lesion Tinea Vision disorder Weight loss due to medication Well adult exam Physical Therapy Inpatient Evaluation/Re-Eval M1 PT/OT-IP Prior Functional Status Start: 07/18/21 15:06 Freq: NEEDED Status: Active Protocol: Document 07/18/21 14:00 AB (Rec: 07/18/21 15:21 AB [id number]) Medical Review Prior Functional Status Medical History Reviewed Yes Communication ALEKNAGIK; requires repeated cues Mobility and Gait pt staed that he is modified independent with all mobilities and ambulation using 4WW but uses SPC to get to the toilet due to the tight space Social History Household Members spouse Living Arrangements House Number of Floors (Floors) One Floor Number of Stairs To Enter/Railing? 1 step to enter Home Environment Standard Height Toilet,Tub/ Shower Home Equipment Four Wheel Walker,Straight Cane,Shower Seat without Backrest,Grab Bars In Shower M2 PT-IP Current Condition Start: 07/18/21 15:06 Freq: NEEDED Status: Active Protocol: Document 07/18/21 14:00 AB (Rec: 07/18/21 15:21 AB [id number]) Physical Therapy Current Condition Current Condition Evaluation Date 07/18/21 Treatment Diagnosis anemia; acute kidney injury; NSTEMI; difficulty in walking Onset Date 07/15/21 M3 PT-IP Subjective Start: 07/18/21 15:06 Freq: NEEDED Status: Active Protocol: Document 07/18/21 14:00 AB (Rec: 07/18/21 15:21 AB [id number]) Subjective Physical Therapy Visit Type Type Initial Evaluation Visit Start Time 14:00 Visit Stop Time 14:40 Total Visit Minutes 40 Number of BONING ROOM WORKER Visits 0 Physical Therapy Visit Comments Patient Comments agreeable to do PT Therapy Pain Assessment Pain Present Pain Present Denied Pain M4 PT-IP Mobility and Gait Start: 07/18/21 15:06 Freq: NEEDED Status: Active Protocol: Document 07/18/21 14:00 AB (Rec: 07/18/21 15:21 AB [id number]) PT-Bed Mobility Assessment Supine to Sit Supine to Sit Standby Assistance Sit to Supine Sit to Supine Standby Assistance Scooting Scooting to Edge of Bed Standby Assistance PT-Transfer Assessment Sit to and From Stand Sit to and from Stand Contact Guard Assistance,1 Person Assistance,Use of Upper Extremities Equipment Transfer Assistive Device Gait Belt Comments Mobility Comments pt agreed to do PT. spouse and son in room. BP monitored . BP in supine: 111/74. completed supine to sit 95/63 c/o dizziness. pt able to sit on EOB for 2 more minutes and BP checked again: 95/63. completed sit to stand CGA and pt stood for ~ 1min and BP checked: 72/47. instructed pt to sit back in bed. nurse alerted. pt completed sit to supine SBA. positioned in bed . BP checked: 100/65. call light and table placed within reach. PT-Balance Assessment Sitting Balance and Reactions Static Sitting Balance Ability Good Dynamic Sitting Balance Ability Good Standing Balance and Reactions Static Standing Balance Ability Fair Dynamic Standing Balance Ability Fair Device Used FWW M5 PT-IP Objective Assessments Start: 07/18/21 15:06 Freq: NEEDED Status: Active Protocol: Document 07/18/21 14:00 AB (Rec: 07/18/21 15:21 AB [id number]) Orientation Orientation/Cognition Level of Alertness Alert Orientation Name Language Function Ability Hard of Hearing Safety Awareness Decreased Safety Awareness Memory Description Short Term Impaired Gross Range of Motion Lower Extremity ROM Assessment Within Functional Limits Strength Lower Extremity Strength Assessment Within Functional Limits Coordination Assessment Gross Coordination Gross Coordination WNL Sensation Assessment Sensation Gross Sensation WNL Muscle Tone Muscle Tone WNL Yes M6 PT-IP Treatment Start: 07/18/21 15:06 Freq: NEEDED Status: Active Protocol: Document 07/18/21 14:00 AB (Rec: 07/18/21 15:21 AB [id number]) Physical Therapy Treatment Education Education Provided Safety M7 PT-IP Assessment and Plan Start: 07/18/21 15:06 Freq: NEEDED Status: Active Protocol: Document 07/18/21 14:00 AB (Rec: 07/18/21 15:21 AB [id number]) PT Summary Assessment and Plan Potential Rehabilitation Potential Fair Status of Condition at Evaluation Evolving Summary Impairments Pain,ROM,Strength,Balance, Coordination,Sensation,Tone, Cognition,Bed Mobility, Transfers,Gait,Activity Tolerance Assessment Summary pt requiring SBA with bed mobility and CGA with sit to stand but unable to do much activity or ambulate due to decrease in BP to 72/47 with c /o dizziness. will need further assessment to determine d/c plan. pt has his spouse to assist him at home. caregiver training will be conducted when appropriate as well as stair climbing. Goals Bed Mobility Goal Independent Transfer Goal Independent,Front Wheeled Walker,Four Wheeled Walker Gait Goal Independent,Front Wheel Walker ,Four Wheel Walker Gait Distance 200 Other Goals up/down 1 step using FWW/4WW Days to Meet Goals 10 Frequency of Treatment Frequency Of Treatment Once a Day Treatment Plan Physical Therapy Treatment Plan Bed Mobility Training,Transfer Training,Gait Training, Therapeutic Exercise,Balance Retraining,Discharge Planning, Hot or Cold Pack,Neuromuscular Re-ed,Coordination Retraining Precautions Other Precautions BP Recommendations To Nursing Amount of Assist Needed 1 Person Assist Discharge Recommendations PT Discharge Recommendations Home with 24 Assist Available,Home Health,SNF Rehab,Home vs SNF Equipment Needed for Home Before FWW if not safe with 4WW Discharge Transportation Needs at Discharge Private Vehicle,Wheelchair/ Cabulance
--- NOTE | 2021-07-18 14:36 | DI.ECHO.S_ITS ---
[facility]+ : : [address] [place] : : : : [id number] : : : : Phone: [phone]+ Echocardiogram Report + + :Name: RUSSELL WOODS Study Date: 07/19/2021 Height: 68 in : :[facility] ReadingLocation: Weight: 149 lb : : Gender: Male BSA: 1.8 m2 : :: 1940 Age: 81 yrs BP: 111/74 mmHg: :Reason For Study: NSTEMI : :Ordering Physician: JAGRUTI, : :MICHAEL Performed By: Freda Greene : :Referring: MICHAEL FRANCOIS : + + Interpretation Summary Limited Echo: 1) Normal left ventricular size and systolic function (EF 60-65%). 2) The interventricular septum is flattened, consistent with a right ventricular pressure overload condition. 3) The right ventricle is mildly dilated. Right ventricular systolic function is moderately reduced and there apears to be Roque's sign present. 4) There is mild to moderate tricuspid regurgitation. 5) The right ventricular systolic pressure is estimated to be at least 50 mmHg based on an estimated right atrial pressure of 15 mm Hg. 6) Compared to the echo done 05/03/2021, RV enlargement, RV systolic dysfunction, roque sign, and pulmonary hypertension are present on this study. Recommend assessing for acute pulmonary embolism. Findings discussed with Dr. Michael Francois on 07/19/2021 at 1240. Procedure: A two-dimensional transthoracic echocardiogram with color flow and Doppler was performed in limited views only to assess NSTEMI. The study quality was technically difficult. Comparison is made with the echocardiogram of 05/03/2021. The patient was in sinus rhythm with heart rates between 80-86 bpm during the exam. Left Ventricle: The left ventricle is normal in size. Left ventricular wall thickness is at the upper limits of normal. The ejection fraction is estimated to be 60-65%. The interventricular septum is flattened, consistent with a right ventricular pressure overload condition. Right Ventricle: The right ventricle is mildly dilated. Right ventricular systolic function is moderately reduced. Mitral Valve: The mitral valve leaflets are mildly calcified. There is mild mitral annular calcification. Tricuspid Valve: The tricuspid valve leaflets are thickened and/or calcified, but open well. The right ventricular systolic pressure is estimated to be at least 50 mmHg based on an estimated right atrial pressure of 15 mm Hg. There is mild to moderate tricuspid regurgitation. Great Vessels: The IVC is dilated (diameter is greater than 2.1 cm) and it collapses less than 50% with a sniff. This suggests a high right atrial pressure of 15 mm Hg. Pericardium/ Pleura There is a trivial pericardial effusion noted. There is no pleural effusion. MMode/2D Measurements & Calculations LVIDd: 4.3 cm IVC diam: 2.5 cm LVIDs: 2.8 cm FS: 33.8 % IVSd: 1.1 cm LVPWd: 1.0 cm LV sanches. diameter/BSA (cm/m^2): 2.4 LV sys. diameter/BSA (cm/m^2): 1.6 RVD1 (basal): 4.3 cm RVD2 (mid): 3.7 cm TAPSE: 1.6 cm Doppler Measurements & Calculations TR max carlos: 340.8 cm/sec TR max P.5 mmHg Reading Physician:12:47 PM
--- NOTE | 2021-07-18 15:40 | CM.DANOTE ---
Initial DCP Assessment Note 81 yo male, admitted inpatient for management of anemia, low platelets(Oncology f/u recommended), PMH includes dementia- therapies currently recommending home w/spouse vs SNF; therapies have had a difficult time working w/patient d/t his hypotension Reviewed chart; ED RN ASSESSMENT/UI DESIGNER Kg's APS report noted. No red flags for this RN ASSESSMENT or provider today re spouse's ability to make decisions for spouse and/or take him home upon DC (if unable to secure SNF). Spouse states he feels safe at home and says yes my is colorful isn't she? Spoke w/patient and spouse yesterday and today; discussing SNF upon DC and patient, spouse and their son agreeable to this plan; spouse states unease re taking patient home if patient not more indp in ADLs At baseline, spouse provides assist w/chores, errands, meal prep, set up, meds, patient able to ambulate indp. around his small home Provided MCR choice list and spouse would like [facility], [facility] and [facility] fax[facility]. Discussed referral /July at [facility] ...no bed available Tuesday, possibly Tuesday Faxed paper referral to [facility] and [facility]. Need f/u Tuesday. Likely DC Tuesday; home w/spouse vs SNF (if can be secured PASRR needed MARY Discharge Planning/Care Management Discharge Assessment Start: 07/18/21 15:31 Freq: Status: Active Protocol: Document 07/18/21 15:31 MARY (Rec: 07/18/21 15:40 MARY [id number]) Discharge Planning Assessment Assigned Jewelry Sales Representative YUMIKO Neri DPOA/Assigned Designee Name Chloe Kelley, spouse Contact Information [phone] Advance Directives? Yes Advance Directives on File No History Provided By Patient Prior Living Arrangements House Comment very small cabin per spouse report Household Members spouse Type of transportation used prior to Relies on Others admit Independent with ADL's Yes Is patient alert and oriented? Yes Needs Assistance With Managing Medications,Home Chores / Shopping Comment [place] Patient/Family Preference Halfway Facility Comment Provided MCR choice list, family would like following facilities faxed: [facility], [facility], [facility], no preference between these facilities Gave referral to [facility], they do not have a bed Tuesday, possibly Tuesday. COVID vaxd x2 and boosted Barriers to Discharge Yes Comment Not enough assist at home from spouse, son works director multimedia in [place] Discharge Plan Halfway Facility Transportation Arrangement Likely w/c Referrals Initiated Halfway Additional Comment [facility] Medicare Choice List Provided Yes SNF/HH Preference [facility] Has Agency SNF been contacted Yes Comment All referrals faxed/discussed and access provided to July at [facility]
[2021-07-18 16:00] VITALS: BP 111/74; PULSE 87; RESP 16; TEMP 36.6; O2SAT 95
--- NOTE | 2021-07-18 16:00 | OT.IP.EVAL ---
Current Diagnoses Anemia, unspecified (07/15/21) Past Medical History (Last Reviewed 07/15/21 @ 18:07 by Jeniffer Duncan MD) Anemia Ataxia BPH (benign prostatic hyperplasia) Cellulitis Chronic back pain CKD (chronic kidney disease) Cognitive decline Eczema (~1969) Hearing deficit Hypothyroidism Olecranon bursitis PSA elevation Shoulder pain (~2014) Skin lesion Tinea Vision disorder Weight loss due to medication Well adult exam Surgical History (Last Reviewed 07/15/21 @ 18:07 by Jeniffer Duncan MD) Colon polyps Occupational Therapy Inpatient Evaluation/Re-Eval M1 PT/OT-IP Prior Functional Status Start: 07/18/21 15:06 Freq: NEEDED Status: Active Protocol: Document 07/18/21 15:05 [facility] (Rec: 07/18/21 16:25 [facility] [id number]) Medical Review Prior Functional Status Medical History Reviewed Yes Communication [id number]; requires repeated cues Mobility and Gait pt stated that he is modified independent with all mobilities and ambulation using 4WW but uses SPC to get to the toilet due to the tight space Activities of Daily Living and IADL's Pt's states he is able to dress, toilet , and that she assist for his showers. Pt's son does the finances and does all IADL needs. Prior Functional Level (Other details) Per pt's pt has progressively gotten weaker since his CVA this past Mar. Social History Household Members spouse Living Arrangements House Number of Floors (Floors) One Floor Number of Stairs To Enter/Railing? 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 OT-IP Current Condition Start: 07/18/21 16:05 Freq: Status: Active Protocol: Document 07/18/21 15:05 [facility] (Rec: 07/18/21 16:25 [facility] [id number]) Occupational Therapy Current Condition Current Condition Evaluation Date 07/18/21 Treatment Diagnosis NSTEMI/generalized weakness Diagnosis Onset Date 07/15/21 M3 OT- IP Subjective and Pain Start: 07/18/21 16:05 Freq: Status: Active Protocol: Document 07/18/21 15:05 [facility] (Rec: 07/18/21 16:25 [facility] [id number]) OT- Subjective Occupational Therapy Visit Type Type Initial Evaluation Visit Start Time 15:05 Visit Stop Time 16:00 Total Visit Minutes 55 Occupational Therapy Visit Comments Patient Comments Pt's and son in the room and pt agreed to try to get up . Patient/Caregiver Goals TO get better. OT Pain Assessment Pain When Pain Assessed At Rest Pain Present Pain Present Denied Pain M4 OT- IP ADL's Start: 07/18/21 16:05 Freq: Status: Active Protocol: Document 07/18/21 15:05 [facility] (Rec: 07/18/21 16:25 [facility] [id number]) OT [id number] Comments OT Self-Feeding Comments Not at meal time. OT ADL-Grooming Comments OT Grooming Comments Not performed due to low BP. OT ADL-Oral Care Comments Oral Care Comments Not performed. OT ADL-Dressing General Eval Lower Body Dressing Ability Standby Assistance Comments OT Dressing Comments Pt able to ana cristina/doff socks with close SBA for balance while seated at the edge of the bed. OT ADL-Toileting General Evaluation Toileting Ability Total Assistance Comments OT Toileting Comments Humphreys in place OT ADL-Bathing Comments OT Bathing Comments Not performed. M5 OT- IP IADL's Start: 07/18/21 16:05 Freq: Status: Active Protocol: Document 07/18/21 15:05 [facility] (Rec: 07/18/21 16:25 [facility] [id number]) OT-Instrumental Activities of Daily Living Medication Management Medication Management Caregiver Administers Money Management Money Management Caregiver Provides Assistance Meal Preparation Meal Preparation Caregiver Provides Assist Planning Rn Planning Rn Caregiver Provides Assist M6 OT- IP Functional Cognition Start: 07/18/21 16:05 Freq: Status: Active Protocol: Document 07/18/21 15:05 [facility] (Rec: 07/18/21 16:25 [facility] [id number]) Cognitive Factors Limiting Selfcare Function Cognitive Ability Level of Alertness Alert Patient Orientation Name Attention Span Ability Capable of Focused Attention, Capable of Sustained Attention Ability to Follow Commands Able to Follow One Step Commands Cognitive Comments Cognitive Assessment Comments Pt able to follow commands but very hard of hearing and tends to lean his head to the left so able to hear out of his right ear. OT- Vision and Hearing OT- Hearing Assessment OT- Hearing Assessment Hearing Impaired OT- Vision Assessment Occular Pursuits WFL Visual Rush WFL M7 OT- IP Mobility and Balance Start: 07/18/21 16:05 Freq: Status: Active Protocol: Document 07/18/21 15:05 [facility] (Rec: 07/18/21 16:25 [facility] [id number]) OT- Bed Mobility Assessment Rolling Type of Rolling Roll to Left Level of Assistance Standby Assistance Supine to Sit Supine to Sit Assist Standby Assistance Sit to Supine Sit to Supine Assist Standby Assistance OT-Transfer Assessment Sit to and From Stand Sit to and from Stand Contact Guard Assistance Comments Mobility Comments BP supine 111/75, sitting 98/ 68 and standing 82/54 and back in supine 112/77. Pt feeling symptomatic while standing. OT- Balance Assessment Sitting Balance and Reactions Static Sitting Balance Ability Good Dynamic Sitting Balance Ability Fair Standing Balance and Reactions Static Standing Balance Ability Fair M8 OT- IP Objective Assessments Start: 07/18/21 16:05 Freq: Status: Active Protocol: Document 07/18/21 15:05 [facility] (Rec: 07/18/21 16:25 [facility] [id number]) OT Gross Range of Motion Upper Extremity Range of Motion ROM Impairments Grossly WFL for age and lifestyle OT- Coordination Assessment Upper Extremity Finger to Nose Test Bilateral UE Impaired Comments Coordination Comments Arthritic changes in hands Left hand more impaired then right hand for finger to nose OT Sensation Assessment Comments Summary Comments Pt unaware that he placed his right hand on the bed with his wrist down the bed versus palm down in order to assist to stand up . Left hand also noted flipped around but not as much as the right hand. M9 OT- IP Assessment and Plan Start: 07/18/21 16:05 Freq: Status: Active Protocol: Document 07/18/21 15:05 [facility] (Rec: 07/18/21 16:25 [facility] [id number]) OT Summary Assessment and Plan Potential Rehabilitation Potential Good Analytic Complexity at Evaluation Moderate Summary OT Impairments Range of Motion,Balance, Sensation,Functional Mobility, Dressing,Toileting,Bathing, Toilet Transfers,Shower Transfers,Activity Tolerance Progress Towards Goals Slow Progress due to Medical Issues Assessment Summary Pt MOD complexity and main barrier low bp, decreased activity tolerance, decreased awareness of position in space,and per needing more assist for needs at home and that she states not able to lift the pt and that he has progressively gotten weaker since his CVA earlier this year. Pt would benefit from skilled rehab versus home with 24/7 assist and home health. Pt's states recently hurt her hand by trying to pull the pt up out of bed. Goals Self-Feeding Goal Independent Grooming Goal Independent Dressing Goal Independent Toileting Goal Independent Bathing Goal Minimal Assistance Toilet Transfer Goal Independent Shower Transfer Goal Independent Days to Meet Goals 10 Frequency of Treatment Frequency Of Treatment Once a Day Treatment Plan OT Treatment Plan ADL Training,Functional Cognition Training,Functional Mobility,Patient/Family Education,Discharge Planning Other Treatment Recommendations and Next shower Treatment Focus Discharge Recommendations OT Discharge Recommendations Home with 24/7 Assist Available,Home Health,SNF Rehab,Home vs SNF Home Equipment Needs tub bench, HHSP Transportation Needs at Discharge Private Vehicle,Wheelchair/ Cabulance
--- NOTE | 2021-07-18 17:04 | PM.PN.1 ---
Subjective Subjective Date Patient Seen: 07/18/21 Interval history: 81-year-old male MINTO, BPH, HTN, CKD, dementia presents with generalized weakness and loss of appetite and found to have severe anemia and thrombocytopenia as well as acute UTI. Patient with numerous sclerotic bone lesions on CT consistent with metastatic disease of unknown primary. PSA is 16 on finasteride. Very high LDH. Has gotten 2 units PRBC with improvement in hemoglobin. He got lightheaded and BP dropped to 70 systolic standing up with physical therapy. He did have episode of AFib a couple of nights ago as well. Denies nose bleeds or other bleeding. Exam Vital Signs (past 8 hours): - 07/18/21 12:00 07/18/21 16:00 Temperature 98 F 98 F Pulse Rate 87 87 Respiratory Rate 18 16 Blood Pressure 128/78 111/74 Pulse Oximetry 95 95 Oxygen Delivery Method Nasal Cannula Oxygen Flow Rate 0 Narrative Exam Narrative: General: Patient is sitting in chair and appears quite comfortable Lungs: Clear to auscultation Heart: Regular rhythm Abdomen: No HSM Extremities: No edema Neurological: Seems at baseline mental status, very hard hearing Objective Labs Result Diagrams: 07/18/21 04:45 07/18/21 04:45 Labs: Laboratory Results - last 24 hr 07/17/21 07/18/21 07/18/21 05:27 04:45 04:45 WBC 5.3 RBC 2.66 L Hgb 8.5 L Hct 25.2 L MCV 95.0 MCH 31.9 MCHC 33.6 RDW 23.5 H Plt Count 24 L* Neut % (Auto) Not Reportable Lymph % (Auto) Not Reportable [place] % (Auto) Not Reportable Eos % (Auto) Not Reportable Baso % (Auto) Not Reportable Lymph # (Auto) Not Reportable [place] # (Auto) Not Reportable Baso # (Auto) Not Reportable Total Counted 100 Seg Neutrophils % 84.0 H Band Neutrophils % 2.0 L Lymphocytes % (Manual) 12.0 L Monocytes % (Manual) 1.0 L Eosinophils % (Manual) 1.0 L Neutrophils # (Manual) 4558 Nucleated RBCs 10 H Platelet Estimate Decreased on smear RBC Morphology See below Anisocytosis 3+ H PT 16.9 H INR 1.5 H APTT Fibrinogen D-Dimer Sodium Potassium Chloride Carbon Dioxide BUN Creatinine Estimated GFR BUN/Creatinine Ratio Glucose Calcium Phosphorus Lactate Dehydrogenase Total Creatine Kinase CK-MB (CK-2) CK-MB (CK-2) Rel Index Troponin I C-Reactive Protein Albumin PSA Ultra-Sensitive 16.600 H TSH 07/18/21 07/18/21 07/18/21 04:45 04:45 07:50 WBC RBC Hgb Hct MCV MCH MCHC RDW Plt Count Neut % (Auto) Lymph % (Auto) [place] % (Auto) Eos % (Auto) Baso % (Auto) Lymph # (Auto) [place] # (Auto) Baso # (Auto) Total Counted Seg Neutrophils % Band Neutrophils % Lymphocytes % (Manual) Monocytes % (Manual) Eosinophils % (Manual) Neutrophils # (Manual) Nucleated RBCs Platelet Estimate RBC Morphology Anisocytosis PT INR APTT 29 Fibrinogen 292 D-Dimer > 5250 H Sodium 137 Potassium 3.4 Chloride 109 H Carbon Dioxide 21 L BUN 46 H Creatinine 1.58 H Estimated GFR 44 L BUN/Creatinine Ratio 29.1 H Glucose 111 H Calcium 8.0 L Phosphorus 4.1 H D Lactate Dehydrogenase Total Creatine Kinase 233 H CK-MB (CK-2) 0.56 CK-MB (CK-2) Rel Index 0.2 L Troponin I 1.510 H* C-Reactive Protein 8.6 H Albumin 2.6 L PSA Ultra-Sensitive TSH 07/18/21 07/18/21 07:50 07:50 WBC RBC Hgb Hct MCV MCH MCHC RDW Plt Count Neut % (Auto) Lymph % (Auto) [place] % (Auto) Eos % (Auto) Baso % (Auto) Lymph # (Auto) [place] # (Auto) Baso # (Auto) Total Counted Seg Neutrophils % Band Neutrophils % Lymphocytes % (Manual) Monocytes % (Manual) Eosinophils % (Manual) Neutrophils # (Manual) Nucleated RBCs Platelet Estimate RBC Morphology Anisocytosis PT INR APTT Fibrinogen D-Dimer Sodium Potassium Chloride Carbon Dioxide BUN Creatinine Estimated GFR BUN/Creatinine Ratio Glucose Calcium Phosphorus Lactate Dehydrogenase 1219 H Total Creatine Kinase CK-MB (CK-2) CK-MB (CK-2) Rel Index Troponin I C-Reactive Protein Albumin PSA Ultra-Sensitive TSH 1.07 [facility] Medical History Anemia Ataxia BPH (benign prostatic hyperplasia) Cellulitis Chronic back pain CKD (chronic kidney disease) Cognitive decline Eczema (~1970) Hearing deficit Hypothyroidism Olecranon bursitis PSA elevation Shoulder pain (~2014) Skin lesion Tinea Vision disorder Weight loss due to medication Well adult exam Surgical History Colon polyps Family History Father Heart disease Social History household members: spouse Smoking Status: Former smoker alcohol intake: former substance use type: does not use Assessment & Plan Assessment & Plan narrative: 1. Severe anemia and thrombocytopenia due to malignancy unknown primary -patient last had normal counts in February 2021 -evidence of sclerotic bone metastases on CT -elevated PSA certainly concerning for prostate primary -LDH 1200 -SPEP, HIV pending, would expect multiple myeloma to present with lytic, not sclerotic, bone lesions -Hb 7.3 on 07/14, transfused 2 units leukocyte reduced PRBC, Hb 9.6, and gradually drifting down -plt 38 on 07/14, gradually drifting down -transfuse for hemoglobin less than 7 or platelets < 10 if no active bleeding -patient will need frequent monitoring of blood counts and Oncology consultation 2. Orthostatic hypotension -stop clonidine and metoprolol on 07/18, lisinopril was discontinued earlier -appears adequately volume resuscitated with transfusions and IV fluids -re-evaluate tomorrow with PT 3. VICTORINO with underlying CKD -improved with transfusions and fluids -no evidence of obstruction on CT -continue monitoring 4. Hypothyroidism -continue levothyroxine 5. Elevated troponin likely from renal failure -EKG with anterior T-wave inversions, no ST changes, no old EKGs for comparison -obtain echo -aspirin contraindicated due to severe thrombocytopenia 6. Episode of self-limited atrial fibrillation -had episode of AFib with RVR on 07/17, started on metoprolol, and has been back in sinus rhythm -metoprolol discontinued 07/18 due to orthostatic hypotension -anticoagulation contraindicated due to severe thrombocytopenia -telemetry monitoring 7. 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
[2021-07-18 20:00] VITALS: BP 137/86; PULSE 83; RESP 17; TEMP 36.7; O2SAT 94
[2021-07-18] MEDS: FINASTERIDE 5 MG TABLET PO (21:45)
[2021-07-18] MEDS: PRAVASTATIN 20 MG TABLET PO (21:45)
[2021-07-18] MEDS: GABAPENTIN 300 MG CAPSULE PO (21:48)
[2021-07-19] VITALS: BP 126/85; PULSE 88; RESP 19; TEMP 36.5; O2SAT 94
[2021-07-19 04:00] VITALS: BP 147/93; PULSE 87; RESP 22; TEMP 36.4; O2SAT 96
[2021-07-19 05:56] LABS: BUN Creatinine Ratio 27.2 (6-22); Blood Urea Nitrogen 37 mg/dL (9-20); Carbon Dioxide 19 mmol/L (22-32); Chloride 110 mmol/L (98-107); Estimated Glomerular Filt Rate 52 mL/min (>60); Glucose 100 mg/dL (80-110); HEMOLYSIS < 15 (0-50); Potassium 3.7 mmol/L (3.4-5.1); Sodium 137 mmol/L (137-145)
[2021-07-19 06:06] LABS: Hematocrit 25.3 % (41-53); Hemoglobin 8.5 g/dL (13.5-17.5); Mean Corpuscular HGB Conc 33.6 % (30-36); Mean Corpuscular Volume 95.5 fL (80-100); Red Blood Cell Count 2.65 X10^6/uL (4.5-5.9); Red Cell Distribution Width 23.3 % (11.6-14.8); White Blood Cell Count 5.5 X10^3/uL (4.5-11.0)
[2021-07-19 06:11] LABS: HBsAg Screen Negative (Negative); Hepatitis A Antibody IgM Negative (Negative); Hepatitis B Core Antibody IgM Negative (Negative); Hepatitis C Antibody <0.1 s/co ratio (0.0-0.9)
[2021-07-19] MEDS: LEVOTHYROXINE 50 MCG TABLET PO (06:21)
[2021-07-19] MEDS: CIPROFLOXACIN 250 MG TABLET PO (06:21)
--- NOTE | 2021-07-19 06:52 | PC.NURSE ---
Lab called at 0645 with critical lab value: platelets 23. Informed Hospitalist at 0650.
[2021-07-19 06:53] LABS: Add Manual Diff / Slide Review YES; Platelet Count 23 X10^3/uL (150-400)
[2021-07-19 08:00] VITALS: BP 152/96; PULSE 88; RESP 14; TEMP 36; O2SAT 95
[2021-07-19 08:47] LABS: Neutrophils Absolute Manual 4455 /uL (3000-5900); Nucleated Red Blood Cells 8 #/Diff; Total Cells Counted 100
[2021-07-19 08:48] LABS: Anisocytosis 3+
[2021-07-19] MEDS: DORZOLAMIDE/TIMOLOL OPHTH 10 ML 1 DROPS EYE-BOTH (09:53)
[2021-07-19] MEDS: TAMSULOSIN 0.4 MG CAPSULE PO (09:53)
[2021-07-19] MEDS: FLUTICASONE 120 SPRAY/16 GM SPRAY.SUSP NASAL (09:53)
[2021-07-19] MEDS: MONTELUKAST 10 MG TABLET PO (09:53)
[2021-07-19] MEDS: FERROUS SULFATE 325 MG TABLET PO (09:54)
[2021-07-19] MEDS: MEMANTINE HCL 5 MG TABLET 10 MG PO (09:57)
[2021-07-19 11:30] VITALS: BP 140/90; PULSE 84; RESP 16; TEMP 36.3; O2SAT 94
[2021-07-19 11:31] VITALS: BP 103/69; BP 140/90; PULSE 84; PULSE 87
--- NOTE | 2021-07-19 12:44 | DI.CT.S_ITS ---
PROCEDURE: CT ANGIO CHEST PE PROTOCOL INDICATIONS: r/o PE TECHNIQUE: After the administration of intravenous contrast, 2 mm thick sections acquired from the pulmonary apices to the posterior costophrenic angles. 3-dimensional maximum intensity projection (MIP) coronal and sagittal reformats were then acquired through the thorax. For radiation dose reduction, the following was used: automated exposure control, adjustment of mA and/or kV according to patient size. COMPARISON: [facility], CT, CT CHEST ABD PEL W CON, 07/17/2021, 14:58. FINDINGS: Image quality: Excellent. Pulmonary arteries: Pulmonary arteries are normal in size, and demonstrate no intraluminal filling defects to suggest central pulmonary embolism. Lungs and pleura: Small bilateral pleural effusion adjacent atelectasis. Ground-glass nodules noted within the right upper and right lower lobes are unchanged from recent comparison. Central and peripheral airways are patent. Mediastinum: Heart size is normal. Trace pericardial effusion. Moderate multi-vessel coronary vascular calcifications. No mediastinal or hilar adenopathy. Thoracic aorta is normal in caliber and enhancement. Esophagus is normal in caliber, without hiatal hernia. Bones and chest wall: Diffuse sclerotic metastases are noted throughout the imaged osseous structures. Ribs and thoracic spine appear intact throughout. Thyroid gland is unremarkable. No axillary or supraclavicular adenopathy. Abdomen: Visualized upper abdominal solid organs appear normal in the early arterial phase of enhancement. Calcified gallstone within the gallbladder. Trace amount of inflammation noted within the right upper abdomen surrounding the duodenum similar to the recent exam. Hypodensity within the right lobe of the liver better depicted on comparison CT likely representing simple cyst. IMPRESSION: No pulmonary embolus identified. No right heart strain. 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 Small bilateral pleural effusions. Coronary vascular calcifications. Trace pericardial effusion. Stable ground-glass opacities within the right lung which may be due to infectious or inflammatory etiology. Pulmonary metastases not completely excluded. Cholelithiasis. Inflammation surrounding the proximal dot on again noted which may represent duodenitis. Dictated by: Deven Herring D.O. on 07/19/2021 at 12:23 Approved by: Deven Herring D.O. on 07/19/2021 at 12:35
[2021-07-19 14:01] VITALS: BP 107/59; BP 130/83; BP 130/84; PULSE 94; PULSE 95; PULSE 98
--- NOTE | 2021-07-19 14:01 | PT.IPTN ---
Current Diagnoses Anemia, unspecified (07/15/21) Physical Therapy Treatment Note M2 PT-IP Current Condition Start: 07/18/21 15:06 Freq: NEEDED Status: Active Protocol: Document 07/18/21 14:00 AB (Rec: 07/18/21 15:21 AB [id number]) Physical Therapy Current Condition Current Condition Evaluation Date 07/18/21 Treatment Diagnosis anemia; acute kidney injury; NSTEMI; difficulty in walking Onset Date 07/15/21 M3 PT-IP Subjective Start: 07/18/21 15:06 Freq: NEEDED Status: Active Protocol: Document 07/19/21 14:01 AW (Rec: 07/19/21 14:20 AW [id number]) Subjective Physical Therapy Visit Type Type Treatment Note Visit Start Time 13:22 Visit Stop Time 14:01 Total Visit Minutes 39 Notes Pt's spouse is at bedside and participating in caregiver training. Number of [employer] ARCHITECT Visits 0 Physical Therapy Visit Comments Patient Comments agreeable to do PT M4 PT-IP Mobility and Gait Start: 07/18/21 15:06 Freq: NEEDED Status: Active Protocol: Document 07/19/21 14:01 AW (Rec: 07/19/21 14:20 AW [id number]) PT-Bed Mobility Assessment Supine to Sit Supine to Sit Standby Assistance Sit to Supine Sit to Supine Standby Assistance Scooting Scooting to Edge of Bed Standby Assistance PT-Transfer Assessment Sit to and From Stand Sit to and from Stand Standby Assistance,1 Person Assistance,Use of Upper Extremities Equipment Transfer Assistive Device Gait Belt,Front Wheeled Walker ,4 Wheeled Walker Transfers Transfer Destination Bed,Toilet Transfer Technique pt amb with FWW or 4WW Comments Mobility Comments Supine BP was 130/83 HR 94. Pt sat up EOB SBA. Sitting BP after one minute was 130/84 HR 95. Pt stood CGA and BP after one minute was 107/59 HR 98. Pt denied symptoms. He was somewhat impulsive and began to walk toward the bathroom using FWW before all lines had been gathered. Humphreys catheter was dislodged but pt denied pain. He transferred to the toilet SBA. There was bright red blood in the toilet. RN was called and made aware. Pt continued to deny pain or lightheadedness. He walked back to the bed with FWW SBA and sat EOB. BP was 110/70 HR 97. Pt stood SBA and used 4WW to ambulate 120 feet in the halls SBA>CGA with increased distance. He returned to the room and agreed to stair training. PT demonstrated and pt taught back technique. Pt stood from the bed SBA and used FWW to approach the platform step. With min A to lift the walker, pt was able to ascend and descend CGA/min A. Pt's spouse was comfortable with technique. Pt returned to supine SBA. BP was 118/73 HR 103. Gait Assessment Gait Gait Assistance Required: Standby Assistance,Contact Guard Assist Distance (Feet) 120 Assistive Devices Assistive Device Gait Belt,4 Wheeled Walker Gait Deviations General Gait Pattern Decreased Stride Length, Decreased Feet Clearance, Flexed Trunk Factors Limiting Gait Function Factors Limiting Gait Function Decreased Activity Tolerance, Decreased Strength,Difficulty Following Directions,Poor Balance,Poor Safety Awareness Comments Gait Comments See mobility comments for details. Stair Climbing Assessment Evaluation Level of Assist On Stairs Contact Guard Assistance, Minimal Assistance,1 Person Assistance Devices Stair Climbing Assistive Devices Front Wheel Walker Technique/Endurance Stair Climbing Direction Ascend and Descend Stair Climbing Technique Step to Step Number of Steps Climbed 1 Stair Climbing Set # Repetitions (reps) 1 Comments Stair Climbing Comments See mobility comments for details. PT-Balance Assessment Sitting Balance and Reactions Static Sitting Balance Ability Good Dynamic Sitting Balance Ability Good Standing Balance and Reactions Static Standing Balance Ability Fair Dynamic Standing Balance Ability Fair Device Used FWW/4WW M5 PT-IP Objective Assessments Start: 07/18/21 15:06 Freq: NEEDED Status: Active Protocol: Document 07/18/21 14:00 AB (Rec: 07/18/21 15:21 AB [id number]) Orientation Orientation/Cognition Level of Alertness Alert Orientation Name Language Function Ability Hard of Hearing Safety Awareness Decreased Safety Awareness Memory Description Short Term Impaired Gross Range of Motion Lower Extremity ROM Assessment Within Functional Limits Strength Lower Extremity Strength Assessment Within Functional Limits Coordination Assessment Gross Coordination Gross Coordination WNL Sensation Assessment Sensation Gross Sensation WNL Muscle Tone Muscle Tone WNL Yes M6 PT-IP Treatment Start: 07/18/21 15:06 Freq: NEEDED Status: Active Protocol: Document 07/19/21 14:01 AW (Rec: 07/19/21 14:20 AW [id number]) Physical Therapy Treatment Education Education Provided Safety Other Treatments Other Treatment Performed Provided caregiver training for pt's spouse who states her son will also be available to assist pt into the house. M7 PT-IP Assessment and Plan Start: 07/18/21 15:06 Freq: NEEDED Status: Active Protocol: Document 07/19/21 14:01 AW (Rec: 07/19/21 14:20 AW [id number]) PT Summary Assessment and Plan Summary Impairments Pain,ROM,Strength,Balance, Coordination,Sensation,Tone, Cognition,Bed Mobility, Transfers,Gait,Activity Tolerance Progress Towards Goals Progressing Toward Goals Assessment Summary Pt tolerated more activity today. He had mild orthostatic hypotension but denied symptoms. BP improved with activity. Pt required SBA with bed mobility, SBA/CGA with transfers and gait using FWW or 4WW, CGA to min A with stair navigation. Pt's spouse was able to provide necessary assist and cues. Pt would benefit from home health therapies to improve strength and mobility independence. Goals Bed Mobility Goal Independent Transfer Goal Independent,Front Wheeled Walker,Four Wheeled Walker Gait Goal Independent,Front Wheel Walker ,Four Wheel Walker Gait Distance 200 Other Goals up/down 1 step using FWW/4WW Days to Meet Goals 10 Frequency of Treatment Frequency Of Treatment Once a Day Treatment Plan Physical Therapy Treatment Plan Bed Mobility Training,Transfer Training,Gait Training, Therapeutic Exercise,Balance Retraining,Discharge Planning, Hot or Cold Pack,Neuromuscular Re-ed,Coordination Retraining Precautions Other Precautions BP Recommendations To Nursing Amount of Assist Needed 1 Person Assist Discharge Recommendations PT Discharge Recommendations Home with 24/ Assist Available,Home Health Equipment Needed for Home Before Pt's spouse to acquire FWW for Discharge home use. Transportation Needs at Discharge Private Vehicle
--- NOTE | 2021-07-19 14:38 | PC.NURSE ---
pt has been calm and coop with some forgetfulness noted, son and in room. ct and echo finished with results sent to MD. cosby, wade and Iv dc't. will dc home with when son returns.
--- NOTE | 2021-07-19 15:14 | PM.DS.1 ---
History of Present Illness History of Present Illness Chief complaint: Gen. weakness Narrative: 81-year-old male with history of? ataxia, BPH, CKD, dementia and hypothyroidism who arrives via EMS, he was complaining of generalized weakness and just feeling generally unwell.? For several days this has been ongoing.? No fevers, no headache or lightheadedness or passing out. has been difficult to move about and needs assistance with person, walker and cane mostly.? No chest pain or shortness of breath. No nausea or vomiting.? No dysuria, urgency or frequency, decrease in urine output or dark urine, no diarrhea or constipation.? No black or bloody stools.? No one-sided weakness or lateralizing symptoms.? Not any cough, cold or congestion.? He presents with EMS his had contacted EMS. He does have? history of dementia and states he has memory issues and his largely speaks for him since she knows the details and is his caregiver.? He is unable to give a full medical history or surgical history.? He can tell me his primary care physician is Dr. Quiros. Discharge Providers Provider Date of admission: 07/15/21 16:18 Discharge Date: 07/19/21 Primary care physician: Sadi Quiros, Consults: 07/15/21 18:44 Consult to Dietitian, Adult Routine Comment: eating has declinded post stroke Reason For Exam: increased weight loose in last 3months 07/18/21 11:22 Consult to Occupational Therapy Evaluate & Treat Comment: Physician Instructions: Evaluate and treat Consult to Physical Therapy Evaluate & Treat Comment: Physician Instructions: Evaluate and Treat 07/19/21 13:40 Consult to Home Health Routine Comment: DX: weakness, ataxia, BPH, CKD, and dementia. Reason For Exam: Arrange home health with PT/OT/RN/CLERK/GUEST HISTORY CLERK Discharge provider: Michael Francois MD Summary Hospital Course Discharge Diagnosis: 1. Severe anemia and thrombocytopenia due to malignancy 2. Metastatic sclerotic bone disease due to unknown primary 3. Elevated PSA 4. Orthostatic hypotension 5. Hypothyroidism 6. Acute kidney injury 7. Elevated troponin 8. Acute atrial fibrillation 9. Acute on chronic severe protein calorie malnutrition 10. Hard of hearing 11. Dementia Chest abdomen and pelvis CT: 1.? Diffuse sclerotic osseous metastases. ? 2.? No adenopathy. ? 3.? Trace bilateral pleural effusions.? A few areas of subtle ground-glass opacity in the right lung.? This could be due to low-grade infectious/inflammatory etiology. ? 4. There is a thickening and stranding about the duodenum.? Presacral edema.? Findings could be due to an enteritis. ? 5. Question mild thickening at the right lower neck. ? 6.? Cholelithiasis. ? 7.? Bladder is mostly decompressed with Humphreys catheter.? The bladder wall appears thickened.? X-ray bone survey: Skull (lateral):? No suspicious bony lesions.? No fractures.? ? Thoracic spine (AP, lateral):? Diffusely heterogeneous appearance of the thoracic spine and ribs is consistent with multiple sclerotic metastases, as seen on CT performed earlier the same day. ? Lumbar spine (AP, lateral):? Diffusely heterogeneous appearance of the lumbar spine is consistent with multiple sclerotic metastases, as seen on CT performed earlier the same day. ? Pelvis (AP):? Heterogeneous appearance of the pelvic bones and proximal femurs is consistent with diffuse sclerotic metastatic disease as seen on recent CT. ? Right and left humeri (AP):? A few small sclerotic lesions are seen in the right proximal to mid humerus.? Possible small left humeral sclerotic lesions. ? Right and left femurs (AP):? Possible small sclerotic lesion at the lateral aspect of the right distal femoral metadiaphysis.? No obvious left distal femoral osseous lesion. Chest CTA: No pulmonary embolus identified.? No right heart strain. ? 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 ? Small bilateral pleural effusions. ? Coronary vascular calcifications.? Trace pericardial effusion. ? Stable ground-glass opacities within the right lung which may be due to infectious or inflammatory etiology.? Pulmonary metastases not completely excluded.? ? Cholelithiasis. ? Inflammation surrounding the proximal dot on again noted which may represent duodenitis.? Limited echo:Limited Echo: 1) Normal left ventricular size and systolic function (EF 60-65%). 2) The interventricular septum is flattened, consistent with a right ventricular pressure overload condition. 3) The right ventricle is mildly dilated. Right ventricular systolic function is moderately reduced and there apears to be Roque's sign present. 4) There is mild to moderate tricuspid regurgitation. 5) The right ventricular systolic pressure is estimated to be at least 50 mmHg based on an estimated right atrial pressure of 15 mm Hg. 6) Compared to the echo done 05/03/2021, RV enlargement, RV systolic dysfunction, roque sign, and pulmonary hypertension are present on this study. Recommend assessing for acute pulmonary embolism. Findings discussed with Dr. Michael Francois on 07/19/2021 at 1240. Hospital Course: 81-year-old male [place], BPH, HTN, CKD, dementia presents with generalized weakness, loss of appetite, recent severe weight loss and found to have severe anemia and thrombocytopenia as well as acute UTI. Patient with numerous sclerotic bone lesions on CT consistent with metastatic disease of unknown primary.? PSA is 16 on finasteride.? Very high LDH.? Transfused 2 units PRBC with improvement in hemoglobin and hematocrit which remained stable post transfusions. His platelet count drifted down a little but he did not require platelet transfusions. Recommend using caught off of hemoglobin of 7 and platelets of 10 for transfusions until he establishes with Oncology. We stopped all blood pressure lowering medications. He does have ongoing orthostatic hypotension although no longer dizzy or lightheaded getting up. He had single self-limited episode of atrial fibrillation which was asymptomatic and likely related to anemia and general condition. He had elevated troponins likely delayed clearing from renal failure. He does have anterior T-wave inversions. His echo on July 19 did show right ventricular volume pressure overload, pulmonary hypertension and mildly dilated RV which were new relative to echo on 05/03/2021. His LVEF is normal. A CTA did not show any evidence of pulmonary embolism. He does have lung nodules possibly representing metastatic disease. He was also treated for simple UTI with urine culture growing Citrobacter. He is being discharged on Cipro. He was seen by PT and OT in hospital. He does remain at elevated fall risk due to general health condition. Patient's is primary caregiver and coordinating all care. Patient should get in to Oncology preferably within the next week. He should have blood counts rechecked in 3 days and then probably weekly or more often thereafter until establishes with Oncology. He will likely continue requiring transfusions as outpatient. Status at Discharge Cognitive/behavioral status at discharge: oriented Functional status at discharge: uses cane/walker Overall status at discharge: patient is back to baseline Time Spent with Patient Time spent: Greater than 30 minutes Exam Vital Signs (past 8 hours): - 07/19/21 08:00 07/19/21 11:30 07/19/21 11:31 Temperature 96.8 F L 97.3 F L Pulse Rate 88 84 Pulse Rate [Orthostatic Lying] 84 Pulse Rate [Orthostatic Sitting] Pulse Rate [Orthostatic Standing] 87 Respiratory Rate 14 16 Blood Pressure 152/96 H 140/90 Blood Pressure [Orthostatic Lying] 140/90 Blood Pressure [Orthostatic Sitting] Blood Pressure [Orthostatic Standing] 103/69 Pulse Oximetry 95 94 07/19/21 14:01 Temperature Pulse Rate Pulse Rate [Orthostatic Lying] 94 H Pulse Rate [Orthostatic Sitting] 95 H Pulse Rate [Orthostatic Standing] 98 H Respiratory Rate Blood Pressure Blood Pressure [Orthostatic Lying] 130/83 Blood Pressure [Orthostatic Sitting] 130/84 Blood Pressure [Orthostatic Standing] 107/59 L Pulse Oximetry Oxygen Delivery Method Nasal Cannula Oxygen Flow Rate 0 Narrative Exam Narrative: General: Alert very hard of hearing male in no acute distress Lungs: Clear to auscultation Heart: Regular rhythm Abdomen: Nontender, no palpable mass Extremities: Nonedematous Objective Labs Result Diagrams: 07/19/21 05:10 07/19/21 05:10 Labs: Laboratory Results - last 24 hr 07/18/21 07/19/21 07/19/21 07:50 05:10 05:10 WBC 5.5 RBC 2.65 L Hgb 8.5 L Hct 25.3 L MCV 95.5 MCH 32.0 MCHC 33.6 RDW 23.3 H Plt Count 23 L* Neut % (Auto) Not Reportable Lymph % (Auto) Not Reportable [place] % (Auto) Not Reportable Eos % (Auto) Not Reportable Baso % (Auto) Not Reportable Lymph # (Auto) Not Reportable [place] # (Auto) Not Reportable Baso # (Auto) Not Reportable Total Counted 100 Seg Neutrophils % 73.0 H Band Neutrophils % 8.0 H Lymphocytes % (Manual) 13.0 L Monocytes % (Manual) 5.0 Eosinophils % (Manual) 1.0 L Neutrophils # (Manual) 4455 Nucleated RBCs 8 H RBC Morphology See below Anisocytosis 3+ H Sodium 137 Potassium 3.7 Chloride 110 H Carbon Dioxide 19 L BUN 37 H Creatinine 1.36 H Estimated GFR 52 L BUN/Creatinine Ratio 27.2 H Glucose 100 Calcium 8.0 L Hepatitis A IgM Ab Negative Hep Bs Antigen Negative Hep B Core IgM Ab Negative Hepatitis C Antibody <0.1 Hep C Ab Signal/Cutoff Comment [facility] Medical History Anemia Ataxia BPH (benign prostatic hyperplasia) Cellulitis Chronic back pain CKD (chronic kidney disease) Cognitive decline Eczema (~1969) Hearing deficit Hypothyroidism Olecranon bursitis PSA elevation Shoulder pain (~2014) Skin lesion Tinea Vision disorder Weight loss due to medication Well adult exam Surgical History Colon polyps Family History Father Heart disease Social History household members: spouse Smoking Status: Former smoker alcohol intake: former substance use type: does not use Discharge Plan Discharge Plan Patient Disposition: Home Provider Discharge Comment: Blood counts need to be re-checked in 3 days and regularly thereafter. Referral is sent to oncology (call PCP office for urgent referral). Maintain good hydration 6 to 8 glasses fluids daily. Eat snacks in between meals if possible to maintain nutrition. Discharge orders & Medications Prescriptions: New ciprofloxacin HCl 250 mg Tablet 250 mg PO 0700,2100 Qty: 12 0RF Continued gabapentin [Neurontin] 300 mg capsule 300 mg PO HS Qty: 90 3RF levothyroxine 50 mcg tablet 50 mcg PO QAM Qty: 90 2RF montelukast 10 mg tablet 10 mg PO QDAY Qty: 90 1RF tamsulosin [Flomax] 0.4 mg capsule 0.4 mg PO QDAY Qty: 90 3RF memantine 10 mg tablet 10 mg PO BID 0RF latanoprost 0.005 % drops 1 drp EYE-BOTH BEDTIME 0RF Label Comments: INSTILL 1 DROP BY OPHTHALMIC ROUTE EVERY NIGHT AT BEDTIME IN THE RIGHT EYE Rx Instructions: is uncertain on directions of medication. Directions provided by outside pharm instructions. dorzolamide-timolol 22.3-6.8 mg/mL drops 1 drp EYE-BOTH BID 0RF Label Comments: INSTILL 1 DROP BY OPHTHALMIC ROUTE TWICE DAILY INTO BOTH EYES Rx Instructions: is unclear what directions are for this medicaiton. directions per outside pharm. trazodone 50 mg tablet 50 mg PO BEDTIME PRN (Reason: Sleep) 0RF pravastatin 20 mg tablet 20 mg PO HS 0RF fluticasone propionate 50 mcg/actuation spray,suspension See Rx Instructions .ROUTE .COMPLEX PRN (Reason: Nasal Congestion) 0RF Rx Instructions: USE 2 SPRAYS IN EACH NOSTRIL EVERY DAY finasteride 5 mg tablet 5 mg PO BEDTIME 0RF selenium sulfide 2.5 % lotion See Rx Instructions TOP .COMPLEX PRN (Reason: dandruff) 0RF Rx Instructions: Apply to scalp and use as directed to prevent dandruff ; sodium chloride [Riley 128] 5 % Drops See Rx Instructions .ROUTE .COMPLEX 0RF Rx Instructions: 1 drop 4x daily in right eye Discontinued lisinopril 20 mg tablet 20 mg PO DAILY Qty: 90 1RF ferrous gluconate 324 mg (38 mg iron) tablet 324 mg PO DAILY Qty: 90 1RF clonidine HCl 0.1 mg tablet 0.1 mg PO BID 0RF aspirin 81 mg Tablet 81 mg PO DAILY 0RF Follow up/Referrals: [facility] [Provider Group] - None Sadi Quiros DO [Primary Care Provider] - Diet/Activity/Treatments Diet: Regular Visit Report/Discharge Packet Instructions: Anemia, DI for Heart Failure, Ciprofloxacin Discharge Data Primary Care Provider: Sadi Quiros
--- NOTE | 2021-07-19 15:58 | PC.NURSE ---
Pt is dressed and ready for discharge home with Spouse and Son. Reviewed d/c meds, time of last dose, reviewed stroke and CHF education and provided CHF guidelines/stoplight sheet, discussed diet-aim for low sodium to help keep fluid retention down and to drink plenty of fluids to prevent constipation or dehydration. Make a follow up appointment with Dr. Quiros as soon as possible and obtain an oncology referrel. Humphreys was pulled out accidentally when Pt was up with PT-Pt is able to void but has residual blood in his urine when he voids. Again reminded Pt to drink fluids and contact his PCP if he has difficulty voiding or urine in his blood continues. Showed Pt's Spouse how to use the gait belt and reminded her that FWW use is needed when up walking. Pt, Son, and Spouse denied further questions and Pt was taken out via w/c by [employer] to POV with Spouse, Son, and all belongings.
--- NOTE | 2021-07-19 16:12 | CM.DPC ---
Addendum entered by Alta Meyers 07/19/21 16:18: Patient's physical address is: [address] [place]. [address]. [facility] made aware on demographic sheet. Original Note: DCP/continued: Reviewed chart. Per provider patient and spouse would like to d/c home with HH today. Provider in agreement to plan. Patient capable of transferring out of bed. SUGGESTION CLERK met with both patient and spouse. Provided HH options. Family does not want [facility]. Therefore, asked if they were okay to use [facility] (assigned agency for week). Spouse and patient in agreement. Called [facility] spoke with coordinator. Faxed clinical including order, and f2f to [facility] as requested. Per [facility] they can probably see patient at the end of this week. Brochure provided to patient and spouse. No additional needs identified. Son here today and SUGGESTION CLERK with no concerns. A.P.S. report filed in ED and would expect that they will f/u as outpatient. P: Home with [facility]. ROSEY
[2021-07-21 10:39] LABS: Beta-2-Microglobulin 3.4 mg/L (0.6-2.4)
[2021-07-21 14:08] LABS: Albumin 2.8 g/dL (2.9-4.4); Alpha-1-Globulin 0.3 g/dL (0.0-0.4); Alpha-2-Globulin 0.6 g/dL (0.4-1.0); Gamma Globulin 0.5 g/dL (0.4-1.8); Globulin Total 1.9 g/dL (2.2-3.9); Protein, Total 4.7 g/dL (6.0-8.5)
[2021-07-22 09:46] LABS: HIV 1 RNA Non Reactive (Non Reactive); HIV 2 RNA Non Reactive (Non Reactive)
== END 2021-07-19 16:04 | disposition home health service (06) | DRG 843 ==
LOC: ED 16:17 → AC 16:21
PROVIDERS: Family Medicine; Internal Medicine; Student in an Organized Health Care Education/Training Program; Admitting Provider Neuromusculoskeletal Medicine, Sports Medicine; Emergency Provider Emergency Medicine; Family Provider Family Medicine; PCP Family Medicine; Referring Provider Emergency Medicine; Visit Provider Neuromusculoskeletal Medicine, Sports Medicine
DX: C80.1 Malignant (primary) neoplasm, unspecified (principal); E43 Unspecified severe protein-calorie malnutrition; N17.9 Acute kidney failure, unspecified; N39.0 Urinary tract infection, site not specified; D63.0 Anemia in neoplastic disease; C79.51 Secondary malignant neoplasm of bone; E87.5 Hyperkalemia; I48.91 Unspecified atrial fibrillation; R09.02 Hypoxemia; D69.59 Other secondary thrombocytopenia; E03.9 Hypothyroidism, unspecified; F03.90 Unspecified dementia, unspecified severity, without behavioral disturbance, psychotic disturbance, mood disturbance, and anxiety; I95.1 Orthostatic hypotension; B96.89 Other specified bacterial agents as the cause of diseases classified elsewhere; N40.1 Benign prostatic hyperplasia with lower urinary tract symptoms; Z68.22 Body mass index [BMI] 22.0-22.9, adult; Z20.822 Contact with and (suspected) exposure to COVID-19; Z87.891 Personal history of nicotine dependence; D50.8 Other iron deficiency anemias; N18.32 Chronic kidney disease, stage 3b
CPT/HCPCS: 36415; 36430; 71045; 71260; 71275; 74176; 74177; 77075; 80048; 80051; 80053; 80069; 80074; 81001; 82232; 82272; 82550; 82553; 82607; 83540; 83550; 83605; 83615; 83880; 84145; 84153; 84155; 84165; 84443; 84484; 85007; 85025; 85379; 85384; 85610; 85730; 86140; 86850; 86900; 86901; 87040; 87077; 87086; 87186; 87535; 87538; 87635; 93005; 93307; 96360; 96361; 97116; 97162; 97166; 97530; 99285; 99291; C9803; P9016; J0696; J1940; Q9967

== ENCOUNTER 2021-07-21 10:47 | Inpatient (IN) | payer MEDICARE, OTHER, SELFPAY ==
[2021-07-15 18:32] VITALS: BMI 22.6
[2021-07-21] VITALS (16 sets, daily range): BP systolic 78–134; BP diastolic 48–88; PULSE 88–102; RESP 15–24; TEMP 36.2–36.6; O2SAT 90–99; BMI 23.3
--- NOTE | 2021-07-21 11:01 | ED_ITS ---
HPI - Weakness General Chief complaint: GI Bleed Stated complaint: Weakness Time Seen by Provider: 07/21/21 11:01 Source: patient, EMS and old records reviewed Mode of arrival: EMS History of Present Illness HPI Narrative: This is a 81-year-old male with history recent severe anemia and thrombocytopenia, difficulty with hearing, BPH, hypertension chronic kidney disease and dementia. Patient had sclerotic bone lesions on his last visit and that discharge on July 19 concerning for metastatic disease with unknown primary source. He was transfused 2 units while in the hospital did not require platelet transfusion but platelets were 20 range prior to discharge. Patient is brought today for weakness, some decreased level of consciousness intermittently and patient is specifically complaining of pain in his right foot with bruising of his toes. No known recent falls or trauma. Patient currently denies any pain other than in his right foot and toes. He denies any headache, no chest pain or shortness of breath, he denies nausea or vomiting, he denies any urinary symptoms. He denies major issues with bowel movements but thinks he has had at least 1 black stool. Patient denies any swelling. He does not recall trauma but does have memory issues. Patient is not currently anticoagulated. He has been set up with follow-up for oncology and has had ongoing orthostatics hypotension and history of AFib. Related Data Home Medications Medication Instructions Recorded Confirmed memantine 10 mg tablet 10 mg PO BID tab 01/20/21 07/21/21 dorzolamide 22.3 mg-timolol 6.8 1 drp EYE-BOTH BID 07/15/21 07/21/21 mg/mL eye drops finasteride 5 mg tablet 5 mg PO BEDTIME 07/15/21 07/21/21 fluticasone propionate 50 See Rx Instructions .ROUTE 07/15/21 07/21/21 mcg/actuation nasal .COMPLEX PRN spray,suspension latanoprost 0.005 % eye drops 1 drp EYE-BOTH BEDTIME 07/15/21 07/21/21 pravastatin 20 mg tablet 40 mg PO HS 07/15/21 07/21/21 selenium sulfide 2.5 % lotion See Rx Instructions TOP .COMPLEX 07/15/21 07/21/21 PRN trazodone 50 mg tablet 50 mg PO BEDTIME PRN 07/15/21 07/21/21 sodium chloride 5 % eye drops See Rx Instructions .ROUTE .COMPLEX 07/16/21 07/21/21 (Riley 128) lisinopril 20 mg tablet 20 mg PO DAILY 07/21/21 07/21/21 Previous Rx's Medication Instructions Recorded levothyroxine 50 mcg tablet 50 mcg PO QAM #90 tab 09/26/20 ciprofloxacin HCl 250 mg tablet 250 mg PO 0700,2100 #12 tab 07/19/21 gabapentin 300 mg capsule 300 mg PO HS #90 cap 07/20/21 (Neurontin) montelukast 10 mg tablet 10 mg PO QDAY #90 tab 07/20/21 tamsulosin 0.4 mg capsule (Flomax) 0.4 mg PO QDAY #90 cap 07/20/21 Allergies Allergy/AdvReac Type Severity Reaction Status Date / Time No Known Drug Allergies Allergy Verified 07/21/21 11:17 Review of Systems Review of Systems ROS Unobtainable: All systems reviewed & are unremarkable except as noted in HPI and below Patient History Medical History Anemia Ataxia BPH (benign prostatic hyperplasia) Cellulitis Chronic back pain CKD (chronic kidney disease) Cognitive decline Eczema (~1969) Hearing deficit Hypothyroidism Olecranon bursitis PSA elevation Shoulder pain (~2014) Skin lesion Tinea Vision disorder Weight loss due to medication Well adult exam Surgical History Colon polyps Family History Father Heart disease Social History household members: spouse Smoking Status: Former smoker alcohol intake: former substance use type: does not use Smoking Status: Former smoker Substance Use Type: does not use Exam Narrative Exam Narrative: GEN: , alert and oriented x 3, ill-appearing male, patient appears to be in mild distress. HEENT: Atraumatic, pupils are equal round reactive to light, extraocular movements are intact, nares are clear, TMs are clear with no fluid, there is no conjunctival pallor. Throat is clear without any exudates, erythema, tonsillar enlargement or uvular deviation HEART: Regular rate and rhythm without murmur, clicks, rubs. Pulses are equal in upper and lower extremities LUNGS:Lungs clear to auscultation, no wheezes, rales, crackles, chest moves symmetrically, no tachypnea accessory muscle use. ABD:bowel sounds normal, soft, non-tender, no guarding, rebound, rigidity, no masses noted, no hepatosplenomegaly, patient has black discolored diarrheal stool on exam, positive stool occult. :No CVA tenderness MSCL: Patient has some mild tenderness over the toes, no muscle atrophy, patient has normal range of motion of all 4 extremities. NEURO:CN 2-12 intact, sensation normal, reflexes 2/4 upper and lower extremities SKIN: Patient does have small areas of bruising on toes 2 3 and 5, patient does have some TI on his right anterior jacob, he has some small areas of ecchymoses on upper and lower extremities. No large areas of ecchymosis or hematoma appreciated. Initial Vital Signs Initial Vital Signs: Vital Signs Pulse Oximetry 90 L 07/21/21 11:20 Course Orders Ordered: Acetaminophen (Acetaminophen 325 Mg Tablet) 650 mg PO Q6HR PRN PRN Reason: pain Finasteride (Finasteride 5 Mg Tablet) 5 mg PO BEDTIME [facility] Levothyroxine Sodium (Levothyroxine 50 Mcg Tablet) 50 mcg PO QACBREAK [facility] Last Admin: 07/22/21 06:58 Dose: 50 mcg Documented by: CTRSOLITARIO Montelukast Sodium (Montelukast 10 Mg Tablet) 10 mg PO DAILY [facility] Naloxone HCl (Naloxone 0.4 Mg/Ml Vial) 0.2 mg IV Q2MIN PRN PRN Reason: Opiate Reversal Ondansetron HCl (Ondansetron 4 Mg/2 Ml Inj) 4 mg IV Q8HR PRN PRN Reason: Nausea And Vomiting Pantoprazole Sodium (Pantoprazole 40 Mg Vial) 40 mg IV BID [facility] Last Admin: 07/21/21 20:32 Dose: 40 mg Documented by: CTRSOLITARIO Tamsulosin HCl (Tamsulosin 0.4 Mg Capsule) 0.4 mg PO DAILY [facility] Discontinued Medications Sodium Chloride (Normal Saline 0.9%) 1,000 mls @ 150 mls/hr IV CONT [facility] Last Admin: 07/21/21 12:47 Dose: Not Given Documented by: ABIGAIL Pantoprazole Sodium (Pantoprazole 40 Mg Vial) 80 mg IV NOW ONE Stop: 07/21/21 14:07 Last Admin: 07/21/21 14:13 Dose: 80 mg Documented by: ABIGAIL Reevaluation(s) Reevaluation #1: Patient continues to have dark stool/diarrhea persistently. He and his are both open to transfusion of platelets as well as blood. Spoke with he is supposed to have an appointment tomorrow with Oncology as an outpatient. They would like to chat with Oncology before making final decision about aggressive they would like for medical treatment. They are open to medical treatment currently. Patient is DNR/DNI. Discussed that he is actively bleeding with low platelets and hemoglobin likely from his cancer exact source is unclear possibly a multiple myeloma versus prostate cancer with diffuse metastatic osseous changes. Discussed patient's labs and imaging finding. notes that he had a stroke in April does appear he was seen here for this unclear if he had workup or if this was assumed stroke. Time: 13:40 Consultations Consultation #1: Dr. Zendejas oncology thinks that he can see patient tomorrow at 11 for an inpatient consult and talk with and review his testing to this point. Patient has an outpatient appointment tomorrow but will not be able to attend. Time: 13:39 Consultation #2: Dr. Johnson, hospitalist accepts for inpatient admission. Discussed oncology plan to come for inpatient consult tomorrow. Transfused with platelets ordered for active gi bleed in department and platelets in 30s. Vital Signs Vital signs: Vital Signs - 8 hr 07/21/21 13:16 07/21/21 13:32 Temperature 97.3 F L 97.1 F L Pulse Rate 97 H 93 H Respiratory Rate 20 24 Blood Pressure 90/60 95/59 L Pulse Oximetry 92 MDM - Weakness Lab Data Result diagrams: 07/22/21 01:45 07/22/21 01:45 Labs: Lab Results 07/21/21 07/21/21 07/21/21 Range/Units 11:10 11:50 11:50 WBC 11.8 H (4.5-11.0) X10^3/uL RBC 1.95 L (4.5-5.9) X10^6/uL Hgb 6.2 L* (13.5-17.5) g/dL Hct 19.0 L* (41-53) % MCV 97.0 (80-100) fL MCH 31.7 (26-34) PG MCHC 32.7 (30-36) % RDW 23.0 H (11.6-14.8) % Plt Count 33 L* (150-400) X10^3/uL Neut % (Auto) Not Reportable Lymph % (Auto) Not Reportable Cavalier % (Auto) Not Reportable Eos % (Auto) Not Reportable Baso % (Auto) Not Reportable Lymph # (Auto) Not Reportable Cavalier # (Auto) Not Reportable Baso # (Auto) Not Reportable Total Counted 100 Seg Neutrophils % 60.0 (38-70) % Band Neutrophils % 5.0 (3-7) % Lymphocytes % (Manual) 18.0 L (25-45) % Atypical Lymphs % 1.0 H ( - 0) % Monocytes % (Manual) 6.0 (2-11) % Eosinophils % (Manual) 1.0 L (2-4) % Metamyelocytes % 2.0 H (-0) % Myelocytes % 7.0 H (-0) % Neutrophils # (Manual) 7670 H (8867-5849) /uL Nucleated RBCs 13 H ( - 0) #/Diff Platelet Estimate Decreased on smear RBC Morphology See below Anisocytosis 3+ H PT 19.5 H (10.1-12.7) SECONDS INR 1.7 H (0.9-1.3) APTT 30 (26.4-36.2) SECONDS Sodium (137-145) mmol/L Potassium (3.4-5.1) mmol/L Chloride (98-107) mmol/L Carbon Dioxide (22-32) mmol/L BUN (9-20) mg/dL Creatinine (0.66-1.25) mg/dL Estimated GFR (>60) mL/min BUN/Creatinine Ratio (6-22) Glucose (80-110) mg/dL Calcium (8.4-10.2) mg/dL Total Bilirubin (0.2-1.3) mg/dL AST (17-59) IU/L ALT (<50) IU/L Alkaline Phosphatase (38-126) U/L Total Creatine Kinase (55-170) U/L CK-MB (CK-2) (<2.37) ng/mL CK-MB (CK-2) Rel Index (1.5-5.0) % Troponin I (0.01-0.034) ng/mL NT-Pro-B Natriuret Pep (<450) pg/mL Total Protein (6.3-8.2) g/dL Albumin (3.5-5.0) g/dL Globulin (1.7-4.1) g/dL Albumin/Globulin Ratio (1.0-2.8) Lipase (23-300) U/L SARS-CoV-2 (PCR) Negative (Negative) Blood Type Antibody Screen Crossmatch 07/21/21 07/21/21 Range/Units 11:50 11:50 WBC (4.5-11.0) X10^3/uL RBC (4.5-5.9) X10^6/uL Hgb (13.5-17.5) g/dL Hct (41-53) % MCV (80-100) fL MCH (26-34) PG MCHC (30-36) % RDW (11.6-14.8) % Plt Count (150-400) X10^3/uL Neut % (Auto) Lymph % (Auto) Cavalier % (Auto) Eos % (Auto) Baso % (Auto) Lymph # (Auto) Cavalier # (Auto) Baso # (Auto) Total Counted Seg Neutrophils % (38-70) % Band Neutrophils % (3-7) % Lymphocytes % (Manual) (25-45) % Atypical Lymphs % ( - 0) % Monocytes % (Manual) (2-11) % Eosinophils % (Manual) (2-4) % Metamyelocytes % (-0) % Myelocytes % (-0) % Neutrophils # (Manual) (7517-9555) /uL Nucleated RBCs ( - 0) #/Diff Platelet Estimate RBC Morphology Anisocytosis PT (10.1-12.7) SECONDS INR (0.9-1.3) APTT (26.4-36.2) SECONDS Sodium 135 L (137-145) mmol/L Potassium 4.5 (3.4-5.1) mmol/L Chloride 106 (98-107) mmol/L Carbon Dioxide 22 (22-32) mmol/L BUN 34 H (9-20) mg/dL Creatinine 1.32 H (0.66-1.25) mg/dL Estimated GFR 54 L (>60) mL/min BUN/Creatinine Ratio 25.8 H (6-22) Glucose 128 H (80-110) mg/dL Calcium 7.8 L (8.4-10.2) mg/dL Total Bilirubin 0.8 (0.2-1.3) mg/dL AST 86 H (17-59) IU/L ALT 47 (<50) IU/L Alkaline Phosphatase 140 H (38-126) U/L Total Creatine Kinase 201 H (55-170) U/L CK-MB (CK-2) 0.93 (<2.37) ng/mL CK-MB (CK-2) Rel Index 0.5 L (1.5-5.0) % Troponin I 0.535 H* (0.01-0.034) ng/mL NT-Pro-B Natriuret Pep 72389 H (<450) pg/mL Total Protein 4.6 L (6.3-8.2) g/dL Albumin 2.4 L (3.5-5.0) g/dL Globulin 2.2 (1.7-4.1) g/dL Albumin/Globulin Ratio 1.1 (1.0-2.8) Lipase 183 (23-300) U/L SARS-CoV-2 (PCR) (Negative) Blood Type O Positive Antibody Screen Negative Crossmatch See Detail Imaging Data CT scan - head: Radiologist Impression: Primo Kelley??81??M??1940 ? Allergy/Adv: No Known Drug Allergies (More??) Close Head CT (Signed) Maik Pepe - 07/21/21 Foot X-Ray (Signed) Maik Pepe - 07/21/21 Chest X-Ray (Signed) Maik Pepe - 07/21/21 Chest CTA (Signed) Deven Herring - 07/19/21 Bone Osseous Survey (Signed) Berhnae Stewart - 07/17/21 Chest/Abdomen/Pelvis CT (Signed) Sanket Kearney - 07/17/21 Chest X-Ray (Signed) Hunter Khanna - 07/17/21 Telemetry Strips 07/15/21 Abdomen/Pelvis CT (Signed) Osito Louise - 07/15/21 Chest X-Ray (Signed) Jerardo Edmonds - 07/15/21 Echocardiogram Ultrasound (Signed) Ra Rincon - 05/26/18 Brain MRI (Signed) Kamala Edmond - 11/24/17 Radiology - Historical 02/03/17 Launch?[address] [address] [address] Scan Report Signed Patient: Primo Kelley MR#: [id number] : 1940 Acct:[id number] Age/Sex: 81 / M Date of Service: 07/21/21 Loc: ED Accession Number: [id number] ?? Procedure: CT head/brain wo con Ordering Provider: Polina Ellis D.O. PROCEDURE:? CT HEAD/BRAIN WO CON ? INDICATIONS:? weakness, mentation change, low platelets. ? TECHNIQUE:? Noncontrast 4.5 mm thick angled axial sections acquired from the foramen magnum to the vertex, with coronal and sagittal reformats.? For radiation dose reduction, the following was used:? automated exposure control, adjustment of mA and/or kV according to patient size.? ? COMPARISON:? [facility], MR, MR BRAIN WITHOUT CONTRAST, 05/03/2021, 10:40. ? FINDINGS:? Image quality:? Excellent.? ? CSF spaces:? Basal cisterns are patent.? No extra-axial fluid collections.? The ventricles are symmetric in size and shape.? ? Brain:? No intracranial bleeds.? There is a new 3.4 x 2.6 x 2.5 cm heterogeneously hypodense lesion within the medial aspect of the right cerebellum.? This was not visualized on comparison MRI dated May 03, 2021.? There is cerebral volume loss for age, with resultant ventricular and sulcal prominence.? There are periventr icular and deep white matter chronic small vessel ischemic changes.? There is intracranial internal carotid artery atherosclerosis.? ? Skull and face:? Calvarium and visualized facial bones appear intact, without suspicious lesions.? ? Sinuses:? Visualized sinuses and mastoids are clear.? ? IMPRESSION:? ? 1. New 3.4 x 2.6 x 2.5 cm heterogeneously hypodense lesion within the medial aspect of the right cerebellum.? No leftward shift of the midline structures.? This may represent an ill-defined mass versus possible age-indeterminate focus of infarction.? Consider further evaluation contrast enhanced MRI. ? ? 2. CT head without acute intracranial abnormalities or acute calvarial fractures. ? 3. Age-related senescent changes and sequela of chronic small vessel ischemic disease. ? Findings were discussed with Dr. Ellis at 1250 hrs. ? Dictated by: Maik Pepe M.D. on 07/21/2021 at 12:42 ? ? Approved by: Maik Pepe M.D. on 07/21/2021 at 12:56?? Chest x-ray: Radiologist Impression: Primo Kelley??81??M??1940 ? Allergy/Adv: No Known Drug Allergies (More??) Close Head CT (Signed) Maik Pepe - 07/21/21 Foot X-Ray (Signed) Maik Pepe - 07/21/21 Chest X-Ray (Signed) Maik Pepe - 07/21/21 Chest CTA (Signed) Deven Herring - 07/19/21 Bone Osseous Survey (Signed) Berhane Stewart - 07/17/21 Chest/Abdomen/Pelvis CT (Signed) Sanket Kearney - 07/17/21 Chest X-Ray (Signed) KhannaHunter - 07/17/21 Telemetry Strips 07/15/21 Abdomen/Pelvis CT (Signed) Osito Louise - 07/15/21 Chest X-Ray (Signed) Jerardo Edmonds - 07/15/21 Echocardiogram Ultrasound (Signed) Ra Rincon - 05/26/18 Brain MRI (Signed) Kamala Edmond - 11/24/17 Radiology - Historical 02/03/17 Launch?[address] [address] XRay Report Signed Patient: Primo Kelley MR#: [id number] : 1940 Acct:[id number] Age/Sex: 81 / M Date of Service: 07/21/21 Loc: ED Accession Number: [id number] ?? Procedure: XR chest 1V Ordering Provider: Polina Ellis D.O. PROCEDURE:? XR CHEST 1V ? INDICATIONS:? weakness ? TECHNIQUE:? One view of the chest was acquired.? ? COMPARISON:? [facility], , XR CHEST 1V, 07/17/2021, 0:51. ? FINDINGS:? ? Surgical changes and devices:? None.? ? Lungs and pleura:? Lungs are clear.? Redemonstration of chronic appearing diffuse interstitial prominence.? No focal consolidation.? No pleural effusions or pneumothorax.? ? ? Mediastinum:? Mediastinal contours appear normal.? Heart size is normal.? ? Bones and chest wall:? No suspicious bony lesions.? Overlying soft tissues appear unremarkable.? ? IMPRESSION:? Stable radiographic evaluation of the chest without acute c ardiopulmonary abnormalities or focal airspace disease. ? ? ? Dictated by: Maik Pepe M.D. on 07/21/2021 at 12:57 ? ? Approved by: Maik Pepe M.D. on 07/21/2021 at 12:58?? Extremity x-ray #1: Radiologist Impression: Launch?[place] [address] XRay Report Signed Patient: Primo Kelley MR#: [id number] : 1940 Acct:[id number] Age/Sex: 81 / M Date of Service: 07/21/21 Loc: ED Accession Number: [id number] ?? Procedure: XR foot RT min 3V Ordering Provider: Polina Ellis D.O. PROCEDURE:? XR FOOT RT MIN 3V ? INDICATIONS:? bruising, pain in toes. ? TECHNIQUE:? 3 views of the foot were acquired.? ? COMPARISON:? None. ? FINDINGS:? ? Bones:? No definite fracture seen.? Polyarticular degenerative changes of the interphalangeal joints of the 2nd through 5th toes most pronounced in the distal interphalangeal joints of the 2nd, 3rd, and 4th toes.? There also mild degenerative changes of the interphalangeal joints of the 1st metatarsophalangeal and i nterphalangeal joints.? No suspicious osseous lesions.? Overall alignment is anatomic. ? Soft tissues:? No tibiotalar joint effusion.? Achilles tendon appears normal.? ? ? IMPRESSION:? Right foot without acute fracture or dislocation.? Polyarticular degenerative changes of the right foot as described above. ? If there is persistent clinical concern for occult fracture given adequate mechanism of injury, consider repeat imaging in 10-14 days. ? ? ? Dictated by: Maik Pepe M.D. on 07/21/2021 at 12:58 ? ? Approved by: Maik Pepe M.D. on 07/21/2021 at 13:00 ECG Data Attestation: I personally reviewed and interpreted this ECG as follows: Interpretation: Sinus rhythm, rate of 93 IN 172 QRS 84 QTC of 522. No acute ST elevation some inverted T-waves in lateral leads. Patient has prior EKG from 6 to in 07/17/2021 which appears similar with no dynamic or acute changes. MDM Narrative Medical decision making narrative: This is an 81-year-old male who was seen by myself last week who has newly but not completely diagnosed metastatic cancer of unknown primary source. Patient returns with worsening anemia, persistent thrombocytopenia an active GI bleed patient has continued to have persistent tarry diarrhea here in the department which is stool occult positive. He has sclerotic osseous lesions throughout on CT imaging last month. Patient is hypotensive with a hemoglobin of 6 and platelets in the 30s. With his active GI bleeding 2 units of PRBCs were ordered and platelets. He has elevated troponin today that is positive but actually improved from his last visit with no active chest pain or shortness of breath at the moment. His main symptom was weakness and some decreased mentation which seems improved in terms of his mentation in the department. Patient INR is elevated, PTT normal on his last visit his fibrinogen was normal range. He has chronic kidney disease which appears at his recent baseline, electrolytes show a CO2 of 21 but no major changes to potassium or sodium. BNP is elevated at 1900. I spoke with the local oncologist Dr. Zendejas who is supposed to see him tomorrow for his 1st visit to establish care and they are able to see the patient tomorrow as an inpatient. Spoke with hospitalist who accepts for admission. Reviewed goals of care with patient and at this time he is DNR/DNI with limited interventions they would like to meet with the oncologist before deciding if they would pursue treatment further or potentially change to comfort measures. Critical Care Time Critical Care Time Critical Care Time: Yes Total Critical Care Time: 45 Attestation: The high probability of a clinically significant, sudden or life threatening d eterioration of the [cardiac, pulm] system(s) required my full and direct attention, intervention and personal management. The aggregate critical care time was [] minutes. This time is in addition to time spent performing reported procedures but includes the following: [x] Data Review and interpretation [x] Patient assessment and monitoring of vital signs [x] Documentation [x] Medication orders and management Discharge Plan Departure Patient Disposition: Admitted As Inpatient Clinical Impression: GI bleed, CKD (chronic kidney disease), Symptomatic anemia, Thrombocytopenia, Demand ischemia Admit Date/Time: 07/21/21 14:17 Admit Provider: Parish Johnson
--- NOTE | 2021-07-21 11:02 | DI.RAD.S_ITS ---
PROCEDURE: XR FOOT RT MIN 3V INDICATIONS: bruising, pain in toes. TECHNIQUE: 3 views of the foot were acquired. COMPARISON: None. FINDINGS: Bones: No definite fracture seen. Polyarticular degenerative changes of the interphalangeal joints of the 2nd through 5th toes most pronounced in the distal interphalangeal joints of the 2nd, 3rd, and 4th toes. There also mild degenerative changes of the interphalangeal joints of the 1st metatarsophalangeal and interphalangeal joints. No suspicious osseous lesions. Overall alignment is anatomic. Soft tissues: No tibiotalar joint effusion. Achilles tendon appears normal. IMPRESSION: Right foot without acute fracture or dislocation. Polyarticular degenerative changes of the right foot as described above. If there is persistent clinical concern for occult fracture given adequate mechanism of injury, consider repeat imaging in 10-14 days. Dictated by: Maik Pepe M.D. on 07/21/2021 at 12:58 Approved by: Maik Pepe M.D. on 07/21/2021 at 13:00
--- NOTE | 2021-07-21 11:02 | DI.RAD.S_ITS ---
PROCEDURE: XR CHEST 1V INDICATIONS: weakness TECHNIQUE: One view of the chest was acquired. COMPARISON: [facility], CR, XR CHEST 1V, 07/17/2021, 0:51. FINDINGS: Surgical changes and devices: None. Lungs and pleura: Lungs are clear. Redemonstration of chronic appearing diffuse interstitial prominence. No focal consolidation. No pleural effusions or pneumothorax. Mediastinum: Mediastinal contours appear normal. Heart size is normal. Bones and chest wall: No suspicious bony lesions. Overlying soft tissues appear unremarkable. IMPRESSION: Stable radiographic evaluation of the chest without acute cardiopulmonary abnormalities or focal airspace disease. Dictated by: Maik Pepe M.D. on 07/21/2021 at 12:57 Approved by: Maik Pepe M.D. on 07/21/2021 at 12:58
--- NOTE | 2021-07-21 11:08 | DI.CT.S_ITS ---
PROCEDURE: CT HEAD/BRAIN WO CON INDICATIONS: weakness, mentation change, low platelets. TECHNIQUE: Noncontrast 4.5 mm thick angled axial sections acquired from the foramen magnum to the vertex, with coronal and sagittal reformats. For radiation dose reduction, the following was used: automated exposure control, adjustment of mA and/or kV according to patient size. COMPARISON: [facility], MR, MR BRAIN WITHOUT CONTRAST, 05/03/2021, 10:40. FINDINGS: Image quality: Excellent. CSF spaces: Basal cisterns are patent. No extra-axial fluid collections. The ventricles are symmetric in size and shape. Brain: No intracranial bleeds. There is a new 3.4 x 2.6 x 2.5 cm heterogeneously hypodense lesion within the medial aspect of the right cerebellum. This was not visualized on comparison MRI dated May 03, 2021. There is cerebral volume loss for age, with resultant ventricular and sulcal prominence. There are periventricular and deep white matter chronic small vessel ischemic changes. There is intracranial internal carotid artery atherosclerosis. Skull and face: Calvarium and visualized facial bones appear intact, without suspicious lesions. Sinuses: Visualized sinuses and mastoids are clear. IMPRESSION: 1. New 3.4 x 2.6 x 2.5 cm heterogeneously hypodense lesion within the medial aspect of the right cerebellum. No leftward shift of the midline structures. This may represent an ill-defined mass versus possible age-indeterminate focus of infarction. Consider further evaluation contrast enhanced MRI. 2. CT head without acute intracranial abnormalities or acute calvarial fractures. 3. Age-related senescent changes and sequela of chronic small vessel ischemic disease. Findings were discussed with Dr. Ellis at 1250 hrs. Dictated by: Maik Pepe M.D. on 07/21/2021 at 12:42 Approved by: Maik Pepe M.D. on 07/21/2021 at 12:56
[2021-07-21 11:48] LABS: COVID19 -Nasal RAPID Negative (Negative)
[2021-07-21 12:16] LABS: INR 1.7 (0.9-1.3); Prothrombin Time 19.5 SECONDS (10.1-12.7)
[2021-07-21 12:18] LABS: PTT Partial Thromboplastin Tim 30 SECONDS (26.4-36.2)
[2021-07-21 12:24] LABS: Alanine Aminotransferase 47 IU/L (<50); Albumin 2.4 g/dL (3.5-5.0); Albumin Globulin Ratio 1.1 (1.0-2.8); Alkaline Phosphatase 140 U/L (38-126); Aspartate Aminotransferase 86 IU/L (17-59); BUN Creatinine Ratio 25.8 (6-22); Bilirubin Total 0.8 mg/dL (0.2-1.3); Blood Urea Nitrogen 34 mg/dL (9-20); Calcium 7.8 mg/dL (8.4-10.2); Carbon Dioxide 22 mmol/L (22-32); Chloride 106 mmol/L (98-107); Creatine Kinase 201 U/L (55-170); Estimated Glomerular Filt Rate 54 mL/min (>60); Globulin 2.2 g/dL (1.7-4.1); Glucose 128 mg/dL (80-110); HEMOLYSIS < 15 (0-50); Lipase 183 U/L (23-300); Potassium 4.5 mmol/L (3.4-5.1); Sodium 135 mmol/L (137-145); Total Protein 4.6 g/dL (6.3-8.2)
[2021-07-21 12:30] LABS: Mean Corpuscular HGB Conc 32.7 % (30-36); Mean Corpuscular Hemoglobin 31.7 PG (26-34); Red Blood Cell Count 1.95 X10^6/uL (4.5-5.9); White Blood Cell Count 11.8 X10^3/uL (4.5-11.0)
[2021-07-21 12:33] LABS: Hemoglobin 6.2 g/dL (13.5-17.5); Platelet Count 33 X10^3/uL (150-400)
[2021-07-21 12:34] LABS: Add Manual Diff / Slide Review YES
[2021-07-21 12:36] LABS: NT-proBNP (BNP-Adult 18+) 19600 pg/mL (<450)
[2021-07-21 12:39] LABS: CKMB % Relative Index 0.5 % (1.5-5.0); Creatine Kinase MB 0.93 ng/mL (<2.37)
[2021-07-21 12:40] LABS: Troponin I 0.535 ng/mL (0.01-0.034)
[2021-07-21 13:33] LABS: Neutrophils Absolute Manual 7670 /uL (3000-5900); Nucleated Red Blood Cells 13 #/Diff; Total Cells Counted 100
[2021-07-21 13:34] LABS: Anisocytosis 3+
[2021-07-21 13:35] LABS: Platelet Estimate Decreased on smear
[2021-07-21] MEDS: PANTOPRAZOLE 40 MG VIAL 80 MG IV (14:13)
--- NOTE | 2021-07-21 14:23 | PC.NURSE ---
pt has been on the bed [place] almost constant. BRBPR . liquid. Dr. Ellis aware. Pt is tolerating PRBC's without incident. VSS. at bedside and updated on all procedures. verbalized an understanding.
[2021-07-21] MEDS: PANTOPRAZOLE 40 MG VIAL IV (20:32)
--- NOTE | 2021-07-21 22:12 | P.HP_ITS ---
History of Present Illness History of Present Illness Date Patient Seen: 07/21/21 Time Patient Seen: 18:00 Chief complaint: Weakness Narrative: Mr. Kelley is an 81M with PMH of recent admission to hospital and discharge just days ago with sclerotic bone lesions concerning for metastatic disease. Additionally he had severe anemia requiring transfusion, thrombocytopenia and chronic history of HTN, CKD, and dementia. He did not have noted any GI bleeding per looking through his records. He did have a high PSA which raised the concern for possible prostate primary, though primary site of malignancy remains unknown. He was discharged only a few days ago. Per report he was weak and more confused then his normal. He also had right foot pain. He supposedly have at least one black stool, no vomiting, no bright blood in stool. Additional medical history notes a self-limited of afib with RVR last admission, elevated troponin, and a referral to oncology which is pending. In the ED workup was done, vitals notable for blood pressure in the 90s, and heart rate in the 90s. Labs notable for WBC 11.8, hgb 6.2, plts 33. BUN 34, creatinine 1.32. INR 1.7. COVID negative. Troponin 0.535, BNP [address]53. CT head shows a possible lesion in the brain in the right cerebellum vs old stroke. Chest xray with no acute process. EKG with no acute process. Xray of right foot with degenerative changes. He was ordered for blood and platelet transfusion, ordered for protonix and admitted for further treatment. Patient History Medical History Anemia Ataxia BPH (benign prostatic hyperplasia) Cellulitis Chronic back pain CKD (chronic kidney disease) Cognitive decline Eczema (~1969) Hearing deficit Hypothyroidism Olecranon bursitis PSA elevation Shoulder pain (~2014) Skin lesion Tinea Vision disorder Weight loss due to medication Well adult exam Surgical History Colon polyps Family & Social History Family History Father Heart disease Social History: household members spouse Prior Living Arrangements House Safety & Behavioral: Feels Safe in Current Yes Environment Been Physically Hurt or No Threatened By a Person Tobacco & Substance use: Smoking Status Former smoker alcohol intake former alcohol intake frequency 0-2 drinks per day Substance Use Type does not use Meds Home Medications and Allergies Home Medications Medication Instructions Recorded Confirmed Type levothyroxine 50 mcg tablet 50 mcg PO QAM #90 tab 09/26/20 07/21/21 Rx memantine 10 mg tablet 10 mg PO BID tab 01/20/21 07/21/21 History dorzolamide 22.3 mg-timolol 6.8 1 drp EYE-BOTH BID 07/15/21 07/21/21 History mg/mL eye drops finasteride 5 mg tablet 5 mg PO BEDTIME 07/15/21 07/21/21 History fluticasone propionate 50 See Rx Instructions .ROUTE 07/15/21 07/21/21 History mcg/actuation nasal .COMPLEX PRN spray,suspension latanoprost 0.005 % eye drops 1 drp EYE-BOTH BEDTIME 07/15/21 07/21/21 History pravastatin 20 mg tablet 40 mg PO HS 07/15/21 07/21/21 History selenium sulfide 2.5 % lotion See Rx Instructions TOP .COMPLEX 07/15/21 07/21/21 History PRN trazodone 50 mg tablet 50 mg PO BEDTIME PRN 07/15/21 07/21/21 History sodium chloride 5 % eye drops See Rx Instructions .ROUTE .COMPLEX 07/16/21 07/21/21 History (Riley 128) ciprofloxacin HCl 250 mg tablet 250 mg PO 0700,2100 #12 tab 07/19/21 07/21/21 Rx gabapentin 300 mg capsule 300 mg PO HS #90 cap 07/20/21 07/21/21 Rx (Neurontin) montelukast 10 mg tablet 10 mg PO QDAY #90 tab 07/20/21 07/21/21 Rx tamsulosin 0.4 mg capsule (Flomax) 0.4 mg PO QDAY #90 cap 07/20/21 07/21/21 Rx lisinopril 20 mg tablet 20 mg PO DAILY 07/21/21 07/21/21 History Allergies Allergy/AdvReac Type Severity Reaction Status Date / Time No Known Drug Allergies Allergy Verified 07/21/21 11:17 Review of Systems Review of Systems Narrative: 14 systems reviewed and negative aside from what is noted in hPI Exam Vital Signs (past 8 hours): - 07/21/21 15:15 07/21/21 16:35 07/21/21 16:53 Temperature 97.4 F L Pulse Rate 97 H 102 H Respiratory Rate 19 22 Blood Pressure 134/69 92/70 Pulse Oximetry 99 92 07/21/21 16:56 07/21/21 17:11 07/21/21 17:32 Temperature 97.4 F L 97.2 F L 97.2 F L Pulse Rate 102 H 100 H 100 H Respiratory Rate 22 22 22 Blood Pressure 92/70 101/88 101/88 Pulse Oximetry 92 07/21/21 19:51 07/21/21 19:52 07/21/21 20:12 Temperature 97.7 F 97.7 F 97.7 F Pulse Rate 102 H 102 H 102 H Respiratory Rate 15 15 20 Blood Pressure 124/70 124/70 113/67 Pulse Oximetry 94 Oxygen Delivery Method Room Air Oxygen Flow Rate 0 Narrative Exam Narrative: GEN: no acute distress, frail, chronically ill appearing, pale HEENT: dry mucous membranes, PERRL NECK: trachea mildine, no JVD CV: regular rate and rhythm, no murmurs PULM: clear bilaterally, no wheezes, rhonchi, rales ABD: soft, nontender, nondistended, no organomegaly EXT: warm and well perfused, with no edema NEURO: confused, fatigued, pleasant, no focal deficits noted Objective Labs Result Diagrams: 07/21/21 11:50 07/21/21 11:50 Labs: Laboratory Results - last 24 hr 07/21/21 07/21/21 07/21/21 11:10 11:50 11:50 WBC 11.8 H RBC 1.95 L Hgb 6.2 L* Hct 19.0 L* MCV 97.0 MCH 31.7 MCHC 32.7 RDW 23.0 H Plt Count 33 L* Neut % (Auto) Not Reportable Lymph % (Auto) Not Reportable [place] % (Auto) Not Reportable Eos % (Auto) Not Reportable Baso % (Auto) Not Reportable Lymph # (Auto) Not Reportable [place] # (Auto) Not Reportable Baso # (Auto) Not Reportable Total Counted 100 Seg Neutrophils % 60.0 Band Neutrophils % 5.0 Lymphocytes % (Manual) 18.0 L Atypical Lymphs % 1.0 H Monocytes % (Manual) 6.0 Eosinophils % (Manual) 1.0 L Metamyelocytes % 2.0 H Myelocytes % 7.0 H Neutrophils # (Manual) 7670 H Nucleated RBCs 13 H Platelet Estimate Decreased on smear RBC Morphology See below Anisocytosis 3+ H PT 19.5 H INR 1.7 H APTT 30 Sodium Potassium Chloride Carbon Dioxide BUN Creatinine Estimated GFR BUN/Creatinine Ratio Glucose Calcium Total Bilirubin AST ALT Alkaline Phosphatase Total Creatine Kinase CK-MB (CK-2) CK-MB (CK-2) Rel Index Troponin I NT-Pro-B Natriuret Pep Total Protein Albumin Globulin Albumin/Globulin Ratio Lipase SARS-CoV-2 (PCR) Negative Blood Type Antibody Screen Crossmatch 07/21/21 07/21/21 11:50 11:50 WBC RBC Hgb Hct MCV MCH MCHC RDW Plt Count Neut % (Auto) Lymph % (Auto) [place] % (Auto) Eos % (Auto) Baso % (Auto) Lymph # (Auto) [place] # (Auto) Baso # (Auto) Total Counted Seg Neutrophils % Band Neutrophils % Lymphocytes % (Manual) Atypical Lymphs % Monocytes % (Manual) Eosinophils % (Manual) Metamyelocytes % Myelocytes % Neutrophils # (Manual) Nucleated RBCs Platelet Estimate RBC Morphology Anisocytosis PT INR APTT Sodium 135 L Potassium 4.5 Chloride 106 Carbon Dioxide 22 BUN 34 H Creatinine 1.32 H Estimated GFR 54 L BUN/Creatinine Ratio 25.8 H Glucose 128 H Calcium 7.8 L Total Bilirubin 0.8 AST 86 H ALT 47 Alkaline Phosphatase 140 H Total Creatine Kinase 201 H CK-MB (CK-2) 0.93 CK-MB (CK-2) Rel Index 0.5 L Troponin I 0.535 H* NT-Pro-B Natriuret Pep 80646 H Total Protein 4.6 L Albumin 2.4 L Globulin 2.2 Albumin/Globulin Ratio 1.1 Lipase 183 SARS-CoV-2 (PCR) Blood Type O Positive Antibody Screen Negative Crossmatch See Detail Assessment & Plan Assessment & Plan narrative: Mr. Kelley is an 81M with recent diagnosis of metastatic bone lesions who presents with anemia and thrombocytopenia. 1. Acute severe anemia and thrombocytopenia -likely due to malignancy -question of possible GI bleeding, for now will order for IV protonix -transfuse PRBC 2U, and transfuse platelets -goal of hemoglobin >7, platelets >50 if actively bleeding -recheck cbc after transfusion -monitor for gi bleeding, for now no consult for scope 2. Metastatic sclerotic bone lesion with possible brain mass -primary unknown -PSA is elevated -CT head concerning for brain mass vs old stroke -per ED physician, Dr. Zendejas may be able to meet patient at 11am in hospital on 07/22 -family wants discussion with oncology to see about possible options 3. Elevated troponin -downtrending from last admission -suspect no acute change -etiology is possibly related to cardiac demand from anemia -no chest pain or shortness of breath, no need to trend further 4. Paroxysmal atrial fibrillation -currently in sinus 5. 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 Unfortunately has multiple issues including malignancy, severe anemia, elevated troponin. Hospice or palliative care is appropriate in this case, and patient family would like to speak with oncology before further decision CODE: DNR Proxy: Chloe Kelley, I have utilized all available resources to reconcile the patient's home medicat ions Time Spent With Patient Critical Care time: I spent a total of [] minutes of critical care time on this patient's care to day; this time is exclusive of procedural time.
[2021-07-21 22:42] LABS: Appearance Urine UA CLEAR; Bilirubin Urine UA NEGATIVE (NEGATIVE); Color Urine UA YELLOW; Glucose Urine UA NEGATIVE (Negative); Ketones Urine UA NEGATIVE (NEGATIVE); Leukocyte Esterase Urine UA NEGATIVE (NEGATIVE); Nitrite Urine UA NEGATIVE (Negative); Occult Blood Urine UA TRACE-INTACT (Negative); Protein Urine UA NEGATIVE (Negative); Specific Gravity Urine UA 1.015 (1.000-1.035); Urobilinogen Urine UA 0.2 E.U./dL (0.2)
[2021-07-21 23:31] LABS: Mean Corpuscular HGB Conc 34.3 % (30-36); Mean Corpuscular Hemoglobin 30.3 PG (26-34); Mean Corpuscular Volume 88.1 fL (80-100); Red Blood Cell Count 2.26 X10^6/uL (4.5-5.9); Red Cell Distribution Width 17.4 % (11.6-14.8); White Blood Cell Count 7.4 X10^3/uL (4.5-11.0)
[2021-07-21 23:42] LABS: Hemoglobin 6.8 g/dL (13.5-17.5)
[2021-07-21 23:43] LABS: Hematocrit 19.9 % (41-53); Platelet Count 63 X10^3/uL (150-400)
[2021-07-22] VITALS (15 sets, daily range): BP systolic 115–150; BP diastolic 67–94; PULSE 86–105; RESP 16–18; TEMP 36.2–37; O2SAT 90–98
[2021-07-22 00:27] LABS: Bacteria Urine None Seen; Culture Indicated Urine Cult Not Indicated; Hyaline Casts Urine 0-1/LPF; RBC Urine 0-1/HPF (0-5/HPF); WBC Urine 0-1/HPF (0-5/HPF)
[2021-07-22 01:50] LABS: Mean Corpuscular HGB Conc 34.1 % (30-36); Mean Corpuscular Hemoglobin 30.4 PG (26-34); Mean Corpuscular Volume 89.3 fL (80-100); Platelet Count 59 X10^3/uL (150-400); Red Blood Cell Count 2.24 X10^6/uL (4.5-5.9); Red Cell Distribution Width 18.1 % (11.6-14.8); White Blood Cell Count 7.1 X10^3/uL (4.5-11.0)
[2021-07-22 01:55] LABS: Hemoglobin 6.8 g/dL (13.5-17.5)
[2021-07-22 01:58] LABS: Add Manual Diff / Slide Review YES; BUN Creatinine Ratio 30.2 (6-22); Blood Urea Nitrogen 42 mg/dL (9-20); Calcium 7.5 mg/dL (8.4-10.2); Carbon Dioxide 21 mmol/L (22-32); Chloride 111 mmol/L (98-107); Estimated Glomerular Filt Rate 51 mL/min (>60); Glucose 121 mg/dL (80-110); HEMOLYSIS < 15 (0-50); Potassium 3.9 mmol/L (3.4-5.1); Sodium 137 mmol/L (137-145)
[2021-07-22] MEDS: LEVOTHYROXINE 50 MCG TABLET PO (06:58)
--- NOTE | 2021-07-22 07:24 | PC.NURSE ---
Pt has completed 2 bags of PRBC in my shift, not developed any signs and symptoms of blood transfusion reaction. Pt stated, I am feeling Okay no significant changes in VS. Notified H/H results to [employer] TECH on duty and order Hgb/Hct lab as instructed by BARBRA Moss. Shift change report was done at bedside, pt denied any discomfort.
[2021-07-22 07:26] LABS: Neutrophils Absolute Manual 5183 /uL (3000-5900); Nucleated Red Blood Cells 5 #/Diff; Total Cells Counted 100
[2021-07-22 07:27] LABS: Anisocytosis 3+
[2021-07-22 07:28] LABS: Poikilocytosis 1+
[2021-07-22] MEDS: TAMSULOSIN 0.4 MG CAPSULE PO (08:41)
[2021-07-22] MEDS: MONTELUKAST 10 MG TABLET PO (08:41)
[2021-07-22] MEDS: PANTOPRAZOLE 40 MG VIAL IV ×2 (08:41→20:55)
[2021-07-22 09:08] LABS: Hematocrit 23.2 % (41-53); Hemoglobin 7.9 g/dL (13.5-17.5)
--- NOTE | 2021-07-22 15:38 | CM.DANOTE ---
DCP Brief Assessment Note Patient is an 81 yo male who was admitted on 07/21/21 for Diffuse Metastatic Bone Mets. Pt has MCR and [employer] for insurance and his PCP is Sadi Quiros. EMR was reviewed. Per MD, pt is a Readmit and requiring blood transfusion. SW called Pt Navigator at [facility] and confirmed that pt is established with Oncologist Dr. Zendejas and pt has a poor prognosis and Dr. Zendejas had kindly been agreeable to bedside consult with pt today maybe around 1100 to discuss POC and continued tx vs Comfort/Palliative approach. No Consult/prog note available yet and Hospitalist had not heard an update yet. Pt was last admitted 3 days ago and discharged home with new [facility] referral on 07/19/21. SW called [facility] and confirmed they were about to open service with pt but pt/spouse requested to hold on HH until after pt's Oncologist apt this week but was then admitted to the hospital. Vidal with [facility] states he will check with his team to determine if [facility] could provide Hospice services to pt in [facility] as [place] in case pt switches to Hospice. SW left msg for Tammie at [facility] inquiring if she knows the outcome of the bedside consult with Dr. Zendejas today towards determining d/c planning needs. Due to triage needs, SW unable to meet this afternoon bedside with pt and spouse. Plan: SW to follow closely for POC of ongoing CA tx vs Comfort Measures. YUMIKO Omalley
--- NOTE | 2021-07-22 17:06 | P.PN_ITS ---
Subjective Subjective Date Patient Seen: 07/22/21 Interval history: Today he remains weak. Patient is hard of hearing but awake and alert. Blood counts and bleeding are improved after transfusion. Patient underwent bone marrow biopsy with oncology today. Family is not interested in endoscopy / colonoscopy at this time, would like to see if bleeding improves with limited measures including medications and time. Exam Vital Signs (past 8 hours): - 07/22/21 09:35 07/22/21 09:39 07/22/21 11:53 Temperature 98.0 F Pulse Rate 98 H Respiratory Rate 18 17 Blood Pressure 124/73 Pulse Oximetry 96 90 L 97 07/22/21 15:29 07/22/21 15:44 Temperature 98.0 F Pulse Rate 105 H Respiratory Rate 17 Blood Pressure 150/94 H Pulse Oximetry 96 Oxygen Delivery Method Nasal Cannula Oxygen Flow Rate 2 Narrative Exam Narrative: GEN: no acute distress, frail, chronically ill appearing, pale HEENT: dry mucous membranes, PERRL NECK: trachea mildine, no JVD CV: regular rate and rhythm, no murmurs PULM: clear bilaterally, no wheezes, rhonchi, rales ABD: soft, nontender, nondistended, no organomegaly EXT: warm and well perfused, with no edema NEURO: confused, fatigued, pleasant, no focal deficits noted Objective Labs Result Diagrams: 07/22/21 08:30 07/22/21 01:45 Labs: Laboratory Results - last 24 hr 07/21/21 07/21/21 07/21/21 11:50 22:25 23:15 WBC 7.4 RBC 2.26 L Hgb 6.8 L* Hct 19.9 L* MCV 88.1 D MCH 30.3 MCHC 34.3 RDW 17.4 H Plt Count 63 L Neut % (Auto) Lymph % (Auto) [place] % (Auto) Eos % (Auto) Baso % (Auto) Lymph # (Auto) [place] # (Auto) Baso # (Auto) Total Counted Seg Neutrophils % Band Neutrophils % Lymphocytes % (Manual) Atypical Lymphs % Monocytes % (Manual) Metamyelocytes % Neutrophils # (Manual) Nucleated RBCs RBC Morphology Poikilocytosis Anisocytosis Sodium Potassium Chloride Carbon Dioxide BUN Creatinine Estimated GFR BUN/Creatinine Ratio Glucose Calcium Urine Color Yellow Urine Appearance Clear Urine pH 5.0 Ur Specific [place] 1.015 Urine Protein Negative Urine Glucose (UA) Negative Urine Ketones Negative Urine Occult Blood Trace-intact Urine Nitrate Negative Urine Bilirubin Negative Urine Urobilinogen 0.2 Ur Leukocyte Esterase Negative Urine RBC 0-1/hpf Urine WBC 0-1/hpf Urine Bacteria None seen Hyaline Casts 0-1/lpf Ur Culture Indicated? Cult not indicated Blood Type O Positive Antibody Screen Negative Crossmatch See Detail 07/22/21 07/22/21 07/22/21 01:45 01:45 08:30 WBC 7.1 RBC 2.24 L Hgb 6.8 L* 7.9 L Hct 20.0 L* 23.2 L MCV 89.3 MCH 30.4 MCHC 34.1 RDW 18.1 H Plt Count 59 L Neut % (Auto) Not Reportable Lymph % (Auto) Not Reportable [place] % (Auto) Not Reportable Eos % (Auto) Not Reportable Baso % (Auto) Not Reportable Lymph # (Auto) Not Reportable [place] # (Auto) Not Reportable Baso # (Auto) Not Reportable Total Counted 100 Seg Neutrophils % 63.0 Band Neutrophils % 10.0 H Lymphocytes % (Manual) 18.0 L Atypical Lymphs % 1.0 H Monocytes % (Manual) 3.0 Metamyelocytes % 5.0 H Neutrophils # (Manual) 5183 Nucleated RBCs 5 H RBC Morphology See below Poikilocytosis 1+ H Anisocytosis 3+ H Sodium 137 Potassium 3.9 Chloride 111 H Carbon Dioxide 21 L BUN 42 H Creatinine 1.39 H Estimated GFR 51 L BUN/Creatinine Ratio 30.2 H Glucose 121 H Calcium 7.5 L Urine Color Urine Appearance Urine pH Ur Specific [place] Urine Protein Urine Glucose (UA) Urine Ketones Urine Occult Blood Urine Nitrate Urine Bilirubin Urine Urobilinogen Ur Leukocyte Esterase Urine RBC Urine WBC Urine Bacteria Hyaline Casts Ur Culture Indicated? Blood Type Antibody Screen Crossmatch [facility] Medical History Anemia Ataxia BPH (benign prostatic hyperplasia) Cellulitis Chronic back pain CKD (chronic kidney disease) Cognitive decline Eczema (~1969) Hearing deficit Hypothyroidism Olecranon bursitis PSA elevation Shoulder pain (~2014) Skin lesion Tinea Vision disorder Weight loss due to medication Well adult exam Surgical History Colon polyps Family History Father Heart disease Social History household members: spouse Smoking Status: Former smoker alcohol intake: former substance use type: does not use Assessment & Plan Assessment & Plan narrative: Mr. Kelley is an 81M with recent diagnosis of metastatic bone lesions who presents with anemia and thrombocytopenia. 1. Acute severe anemia and thrombocytopenia, GI bleeding -likely due to malignancy -continue IV protonix -transfuse PRBC 2U, and transfuse platelets -goal of hemoglobin >7, platelets >50 if actively bleeding -recheck cbc after transfusion -family not interested in endoscopy / colonoscopy at this time. Would prefer to wait and treat conservatively. May need to rediscuss depending on trend. -differential is broad include possible colonic met which is bleeding, ischemia, diverticular, or even UGI bleeding. -appreciate oncology consultation 2. 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 3. Elevated troponin, myocardial injury -downtrending from last admission -suspect no acute change -etiology is possibly related to cardiac demand from anemia -no chest pain or shortness of breath, no need to trend further 4. Paroxysmal atrial fibrillation -currently in sinus, no AC given GI bleeding. 5. 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 Unfortunately has multiple issues including malignancy, severe anemia, elevated troponin. Family is concerned about his weakness currently, would like to persue rehab at this time pending oncology evaluation which additional information is needed after biopsy results before more accurate prognosis can be ascertained. If GI bleeding continues to improve we can start PT/OT possibly tomorrow. CODE: DNR Proxy: Chloe Kelley, I have utilized all available resources to reconcile the patient's home medications Time Spent With Patient Critical Care time: I spent a total of [] minutes of critical care time on this patient's care today; this time is exclusive of procedural time.
--- NOTE | 2021-07-22 18:03 | PC.NURSE ---
Pt is AxOx2, forgetful and needs 2 person assistance. VSS, pt denies pain. Pt had 4x bloody stool, is aware of it. H&H: 7.9/23.2. Pt has bone marrow biopsy today, no pain and pt has dressing on the site. Pt is back to general diet so pt ate dinner well. Pt is on NC 2L. No other changes. Continue monitor.
[2021-07-22] MEDS: FINASTERIDE 5 MG TABLET PO (20:55)
[2021-07-22] MEDS: SODIUM CHLORIDE 0.9% FLUSH 10 ML IV (20:58)
[2021-07-23] VITALS (15 sets, daily range): BP systolic 139–151; BP diastolic 87–100; PULSE 72–106; RESP 15–20; TEMP 36.3–36.7; O2SAT 92–97
[2021-07-23] MEDS: LEVOTHYROXINE 50 MCG TABLET PO (07:04)
--- NOTE | 2021-07-23 08:51 | DIET.CONS ---
Dietary Consultation Note Admission Date: 07/21/2021 14:17 Assessment: 81y M admitted for weakness requiring blood transfusion, seen by RD last admit and screened by RD for low MNA 5 (malnourished). Pt has hx dementia, HTN, CKD with recent PSA elevated from 6 (03/07) to 15 (05/05) c imaging concerning for osseous metastatic disease with associated unintentional weight loss of 15% in 5 mo (severe). Pt has been experiencing gradual weight loss over 2 years, is 24% under UBW but most concerning is steep drop in weight 15% since February 2021. Pt spouse reported to PCP to having significantly more trouble with self care and is unable to meet nutrition needs to maintain weight despite efforts. Pt renal fxn improved since last week, eGFR 51 Cr 1.39. Ht: 171.45 cm Wt: 68.538 kg (-15% in 5mo, severe) BMI: 23.3 UBW: 97kg Last BM: 07/22/21 (07/22/21 13:17) MNA: 5 Julien Score: 18 Diet: 07/22/21 Dinner General (Regular) Diet Diet Modifications: Nutrition Percent Meal Consumed 50% 07/22/21 18:00 Labs: RBC 2.24 X10^6/uL (4.5-5.9) L 07/22/21 01:45 Hgb 7.9 g/dL (13.5-17.5) L 07/22/21 08:30 Hct 23.2 % (41-53) L 07/22/21 08:30 Creatinine 1.39 mg/dL (0.66-1.25) H 07/22/21 01:45 NT-Pro-B Natriuret Pep 57830 pg/mL (<450) H 07/21/21 11:50 Nutrition Diagnosis: Severe acute on chronic protein calorie malnutrition r/t reduced hunger/thirst cues secondary to advancing dementia and hypermetabolism secondary to likely metastatic prostate cancer aeb 15% unintentional weight loss in 5mo (severe) despite efforts to increase PO intake, pt admitted for weakness c frequent falls required transfusion, PSA elevation concurrent c start of weight loss and imaging concerning for osseous metastatic disease. Interventions: 1. Sending ONS Nepro bid to support nutrition and hydration status in renal friendly formula. EER: 2,000kcals (30kcal/kg), 60g PRO (per renal) Monitoring/Evaluations: POs, ONS tolerance, POC Electronically Signed by: Sita Carbajal 07/23/21 08:51 Clinical Dietitian [address] [address]
[2021-07-23] MEDS: TAMSULOSIN 0.4 MG CAPSULE PO (09:00)
[2021-07-23] MEDS: PANTOPRAZOLE 40 MG VIAL IV ×2 (09:00→20:34)
[2021-07-23] MEDS: MONTELUKAST 10 MG TABLET PO (09:00)
[2021-07-23] MEDS: SODIUM CHLORIDE 0.9% FLUSH 10 ML IV ×2 (09:00→20:34)
[2021-07-23 11:41] LABS: Hematocrit 22.5 % (41-53); Hemoglobin 7.6 g/dL (13.5-17.5); Mean Corpuscular HGB Conc 33.7 % (30-36); Mean Corpuscular Hemoglobin 29.9 PG (26-34); Mean Corpuscular Volume 88.7 fL (80-100); Platelet Count 40 X10^3/uL (150-400); Red Blood Cell Count 2.54 X10^6/uL (4.5-5.9); Red Cell Distribution Width 17.4 % (11.6-14.8); White Blood Cell Count 7.8 X10^3/uL (4.5-11.0)
[2021-07-23 11:44] LABS: Add Manual Diff / Slide Review YES
[2021-07-23 12:01] LABS: BUN Creatinine Ratio 18.6 (6-22); Blood Urea Nitrogen 24 mg/dL (9-20); Calcium 7.9 mg/dL (8.4-10.2); Carbon Dioxide 24 mmol/L (22-32); Chloride 109 mmol/L (98-107); Estimated Glomerular Filt Rate 56 mL/min (>60); Glucose 112 mg/dL (80-110); HEMOLYSIS < 15 (0-50); Potassium 3.5 mmol/L (3.4-5.1); Sodium 138 mmol/L (137-145)
[2021-07-23 12:17] LABS: Neutrophils Absolute Manual 5850 /uL (3000-5900); Nucleated Red Blood Cells 3 #/Diff; Total Cells Counted 100
[2021-07-23 12:18] LABS: Anisocytosis 3+
[2021-07-23 12:19] LABS: Polychromasia 1+
[2021-07-23] MEDS: POTASSIUM CHLORIDE 20 MEQ TAB PO (15:28)
--- NOTE | 2021-07-23 15:39 | PC.NURSE ---
Pt resting @ intervals in room SpO2 96% MD, , pt and son had family care meeting this afternoon. H/H continue to decrease. Condition remains essentially unchanged. Call light w/in reach, bed alarm on for pt safety.
--- NOTE | 2021-07-23 16:32 | P.PN_ITS ---
Subjective Subjective Date Patient Seen: 07/23/21 Time Patient Seen: 16:49 Interval history: Today he remains weak. Patient is hard of hearing but awake and alert. Blood counts and bleeding are improved after transfusion. Patient underwent bone marrow biopsy with oncology today. Family is not interested in endoscopy / colonoscopy at this time, would like to see if bleeding improves with limited measures including medications and time. Exam Vital Signs (past 8 hours): - 07/23/21 08:46 07/23/21 12:00 07/23/21 12:00 Respiratory Rate 16 Pulse Oximetry 94 93 94 Oxygen Delivery Method Nasal Cannula Room Air Oxygen Flow Rate 1 2 07/23/21 13:55 07/23/21 16:00 07/23/21 16:00 Respiratory Rate 20 Pulse Oximetry 96 95 Oxygen Delivery Method Room Air Room Air Oxygen Flow Rate Oxygen Delivery Method Room Air Oxygen Flow Rate 2 Narrative Exam Narrative: GEN: no acute distress, frail, chronically ill appearing, pale HEENT: dry mucous membranes, PERRL NECK: trachea mildine, no JVD CV: regular rate and rhythm, no murmurs PULM: clear bilaterally, no wheezes, rhonchi, rales ABD: soft, nontender, nondistended, no organomegaly EXT: warm and well perfused, with no edema NEURO: confused, fatigued, pleasant, no focal deficits noted Objective Labs Result Diagrams: 07/23/21 11:19 07/23/21 11:19 Labs: Laboratory Results - last 24 hr 07/23/21 07/23/21 11:19 11:19 WBC 7.8 RBC 2.54 L Hgb 7.6 L Hct 22.5 L MCV 88.7 MCH 29.9 MCHC 33.7 RDW 17.4 H Plt Count 40 L Neut % (Auto) Not Reportable Lymph % (Auto) Not Reportable Love % (Auto) Not Reportable Eos % (Auto) Not Reportable Baso % (Auto) Not Reportable Lymph # (Auto) Not Reportable Love # (Auto) Not Reportable Baso # (Auto) Not Reportable Total Counted 100 Seg Neutrophils % 66.0 Band Neutrophils % 9.0 H Lymphocytes % (Manual) 12.0 L Monocytes % (Manual) 5.0 Eosinophils % (Manual) 1.0 L Metamyelocytes % 3.0 H Myelocytes % 4.0 H Neutrophils # (Manual) 5850 Nucleated RBCs 3 H RBC Morphology See below Polychromasia 1+ H Anisocytosis 3+ H Sodium 138 Potassium 3.5 Chloride 109 H Carbon Dioxide 24 BUN 24 H Creatinine 1.29 H Estimated GFR 56 L BUN/Creatinine Ratio 18.6 Glucose 112 H Calcium 7.9 L PFSH Medical History Anemia Ataxia BPH (benign prostatic hyperplasia) Cellulitis Chronic back pain CKD (chronic kidney disease) Cognitive decline Eczema (~1969) Hearing deficit Hypothyroidism Olecranon bursitis PSA elevation Shoulder pain (~2014) Skin lesion Tinea Vision disorder Weight loss due to medication Well adult exam Surgical History Colon polyps Family History Father Heart disease Social History household members: spouse Smoking Status: Former smoker alcohol intake: former substance use type: does not use Assessment & Plan Assessment & Plan narrative: Mr. Kelley is an 81M with recent diagnosis of metastatic bone lesions who presents with anemia and thrombocytopenia secondary to likely lower GI bleeding in the setting of metastatic cancer. 1. Acute severe anemia and thrombocytopenia, GI bleeding -likely due to malignancy and possibly due to active bleeding. -continue IV protonix -transfuse PRBC 2U, and transfuse platelets -goal of hemoglobin >7, platelets >20 -prolonged discussion today of goals of care and options as noted below. Consider colonoscopy if bleeding continues in 24-48 hours timeframe. -differential is broad include possible colonic met which is bleeding, ischemia, diverticular, or even UGI bleeding. -appreciate oncology consultation 2. 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 3. Elevated troponin, myocardial injury -downtrending from last admission -suspect no acute change -etiology is possibly related to cardiac demand from anemia -no chest pain or shortness of breath, no need to trend further 4. Paroxysmal atrial fibrillation -currently in sinus, no AC given GI bleeding. 5. 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 7. Advanced care planning -90 minutes of advance care planning was performed with the patient, , and son over the course of today. Discussions focused on reiterating that the patient would not wish to be resuscitated and that he should remain DNR. Poor prognosis was again stated, and the family is certainly understanding that at best he has a very advanced/metastatic malignancy and if there is any treatment it would be palliative in nature most likely and focused on potentially giving him more time. They also realize that his quality of life may not be so great depending on his continued bleeding and weakness. We discussed a few probabilities and treatment courses. At this time they would like to continue with supportive treatments with transfusions as needed of blood products and platelets. They would ideally like to await biopsy results for a more definitive diagnosis but this could be in a few weeks time. It was discussed that this may not actually result in a final diagnosis, but we will need to wait and see. I further discussed that he would likely to continue bleeding and recommended that the family continue to contemplate if they would want to pursue colonoscopy for diagnostic purposes and possible interventions. They are not interested in major surgery including colon resection would bleeding worsen or if he would have a complication from colonoscopy. The hope is that this bleeding would stop as the family would like to avoid colonoscopy if at all possible, and if it does. They would like him to proceed with physical therapy and possible longterm rehabilitation to see how he does prior to his oncology follow-up. CODE: DNR Proxy: Chloe Kelley, I have utilized all available resources to reconcile the patient's home medications Time Spent With Patient Critical Care time: I spent a total of [] minutes of critical care time on this patient's care today; this time is exclusive of procedural time.
[2021-07-23] MEDS: FINASTERIDE 5 MG TABLET PO (20:34)
[2021-07-23] MEDS: ACETAMINOPHEN 325 MG TABLET 650 MG PO (23:35)
[2021-07-24] VITALS (9 sets, daily range): BP systolic 126–156; BP diastolic 69–103; PULSE 82–109; RESP 18; TEMP 36.6–37; O2SAT 91–98
[2021-07-24 04:52] LABS: Hematocrit 22.5 % (41-53); Hemoglobin 7.7 g/dL (13.5-17.5); Mean Corpuscular HGB Conc 34.1 % (30-36); Mean Corpuscular Hemoglobin 30.2 PG (26-34); Mean Corpuscular Volume 88.5 fL (80-100); Red Blood Cell Count 2.54 X10^6/uL (4.5-5.9); Red Cell Distribution Width 17.4 % (11.6-14.8)
[2021-07-24 04:55] LABS: Add Manual Diff / Slide Review YES
[2021-07-24 04:56] LABS: BUN Creatinine Ratio 15.2 (6-22); Blood Urea Nitrogen 19 mg/dL (9-20); Calcium 8.1 mg/dL (8.4-10.2); Carbon Dioxide 25 mmol/L (22-32); Chloride 109 mmol/L (98-107); Estimated Glomerular Filt Rate 58 mL/min (>60); Glucose 100 mg/dL (80-110); HEMOLYSIS < 15 (0-50); Potassium 3.6 mmol/L (3.4-5.1); Sodium 137 mmol/L (137-145)
[2021-07-24 05:14] LABS: Platelet Count 35 X10^3/uL (150-400)
[2021-07-24 05:44] LABS: Neutrophils Absolute Manual 5530 /uL (3000-5900); Nucleated Red Blood Cells 11 #/Diff; Total Cells Counted 100
[2021-07-24 05:46] LABS: Anisocytosis 3+
[2021-07-24] MEDS: LEVOTHYROXINE 50 MCG TABLET PO (06:30)
--- NOTE | 2021-07-24 08:10 | PC.NURSE ---
Addendum entered by Aspen Jalloh R.N. 07/24/21 14:14: Patient is finally resting, he ate about 10% of his breakfast and denies pain. here early for a visit and left, she does not drive. Patient was in tears and upset. Asked if we could help her out and she left to her ride independently. Original Note: Patient yelling out for the urinal, this RN explained to patient that he needs to use his call leyva for needs. He was able to void in the urinal with assistance. Patient is incontinent of urine at times. O bowel movement as of yet. Patient has had some bleeding prior. He will be eating breakfast soon.. Resting comfortably supine. This Rn has encouraged him to try and do some things on his own.
[2021-07-24] MEDS: TAMSULOSIN 0.4 MG CAPSULE PO (09:32)
[2021-07-24] MEDS: MONTELUKAST 10 MG TABLET PO (09:32)
[2021-07-24] MEDS: PANTOPRAZOLE 40 MG VIAL IV ×2 (09:32→20:37)
[2021-07-24] MEDS: SODIUM CHLORIDE 0.9% FLUSH 10 ML IV ×2 (09:33→20:38)
--- NOTE | 2021-07-24 16:54 | P.PN_ITS ---
Subjective Subjective Date Patient Seen: 07/24/21 Interval history: 81 y/o male with metastatic cancer of unknown primary. No complaints today. Patient and are clear he is unable to return home as she is unable to care for him. H/H stable after transfusion,no obvious evidence of bleeding at this time. Platelets still low. BM results pending Exam Vital Signs (past 8 hours): - 07/24/21 08:58 07/24/21 12:00 07/24/21 10:39 Temperature 97.8 F Pulse Rate 104 H Respiratory Rate 18 Blood Pressure 156/103 H Pulse Oximetry 95 91 Oxygen Delivery Method Room Air Room Air Oxygen Flow Rate 0 07/24/21 16:00 07/24/21 11:55 Temperature 98.1 F Pulse Rate 101 H Respiratory Rate 18 Blood Pressure 134/89 Pulse Oximetry 95 Oxygen Delivery Method Room Air Oxygen Flow Rate 0 Oxygen Delivery Method Room Air Oxygen Flow Rate 0 Narrative Exam Narrative: Pleasant elderly male lying in bed Resp Other: Lungs: Clear to auscultation Cardio Other: CV: RRR nl Sl S2 2/6 SARANYA GI Other: Abd: soft/ non tender/ non distended Extrem Other: no edema Objective Labs Result Diagrams: 07/24/21 04:35 07/24/21 04:35 Labs: Laboratory Results - last 24 hr 07/24/21 07/24/21 04:35 04:35 WBC 7.0 RBC 2.54 L Hgb 7.7 L Hct 22.5 L MCV 88.5 MCH 30.2 MCHC 34.1 RDW 17.4 H Plt Count 35 L* Neut % (Auto) Not Reportable Lymph % (Auto) Not Reportable [place] % (Auto) Not Reportable Eos % (Auto) Not Reportable Baso % (Auto) Not Reportable Lymph # (Auto) Not Reportable [place] # (Auto) Not Reportable Baso # (Auto) Not Reportable Total Counted 100 Seg Neutrophils % 65.0 Band Neutrophils % 14.0 H Lymphocytes % (Manual) 10.0 L Monocytes % (Manual) 5.0 Eosinophils % (Manual) 2.0 Metamyelocytes % 2.0 H Myelocytes % 2.0 H Neutrophils # (Manual) 5530 Nucleated RBCs 11 H RBC Morphology See below Anisocytosis 3+ H Sodium 137 Potassium 3.6 Chloride 109 H Carbon Dioxide 25 BUN 19 Creatinine 1.25 Estimated GFR 58 L BUN/Creatinine Ratio 15.2 Glucose 100 Calcium 8.1 L [facility] Medical History Anemia Ataxia BPH (benign prostatic hyperplasia) Cellulitis Chronic back pain CKD (chronic kidney disease) Cognitive decline Eczema (~1969) Hearing deficit Hypothyroidism Olecranon bursitis PSA elevation Shoulder pain (~2014) Skin lesion Tinea Vision disorder Weight loss due to medication Well adult exam Surgical History Colon polyps Family History Father Heart disease Social History household members: spouse Smoking Status: Former smoker alcohol intake: former substance use type: does not use Assessment & Plan Assessment & Plan narrative: Mr. Kelley is an 81M with recent diagnosis of metastatic bone lesions who pr esents with anemia and thrombocytopenia secondary to likely lower GI bleeding in the setting of metastatic cancer. 1. Acute severe anemia and thrombocytopenia, GI bleeding -likely due to malignancy and possibly due to active bleeding. -continue IV protonix -transfuse PRBC 2U, and transfuse platelets -goal of hemoglobin >7, platelets >20 -prolonged discussion today of goals of care and options as noted below. Consider colonoscopy if bleeding continues in 24-48 hours timeframe. -differential is broad include possible colonic met which is bleeding, ischemia, diverticular, or even UGI bleeding. -appreciate oncology consultation -would suggest discharge to SNF when bed available. We can transfuse again before he discharges if H/H below 7 -He may or may not be able to get diagnosis before final decision about goals of care can be made Given advanced age and significant disease burden unlikely that curative therapy is possible 2. 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 3. Elevated troponin, myocardial injury -downtrending from last admission -suspect no acute change -etiology is possibly related to cardiac demand from anemia -no chest pain or shortness of breath, no need to trend further 4. Paroxysmal atrial fibrillation -currently in sinus, no AC given GI bleeding. -also thrombocytopenia contraindicated 5. 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 7. Advanced care planning ?-90 minutes of advance care planning was performed with the patient, , and son over the course of today.? Discussions focused on reiterating that the patient would not wish to be resuscitated and that he should remain DNR.? Poor prognosis was again stated, and the family is certainly understanding that at best he has a very advanced/metastatic malignancy and if there is any treatment it would be palliative in nature most likely and focused on potentially giving him more time.? They also realize that his quality of life may not be so great depending on his continued bleeding and weakness.? We discussed a few probabilities and treatment courses.? At this time they would like to continue with supportive treatments with transfusions as needed of blood products and platelets.? They would ideally like to await biopsy results for a more definitive diagnosis but this could be in a few weeks time.? It was discussed that this may not actually result in a final diagnosis, but we will need to wait and see.? I further discussed that he would likely to continue bleeding and recommended that the family continue to contemplate if they would want to pursue colonoscopy for diagnostic purposes and possible interventions.? They are not interested in major surgery including colon resection would bleeding worsen or if he would have a complication from colonoscopy.? The hope is that this bleeding would stop as the family would like to avoid colonoscopy if at all possible, and if it does.? They would like him to proceed with physical therapy and possible assisted rehabilitation to see how he does prior to his oncology follow-up. Will discuss SNF placement with Case Management. Seems most reasonable option at this point Time Spent With Patient Critical Care time: I spent a total of [] minutes of critical care time on this patient's care today; this time is exclusive of procedural time.
[2021-07-24] MEDS: FINASTERIDE 5 MG TABLET PO (20:13)
[2021-07-24] MEDS: ACETAMINOPHEN 325 MG TABLET 650 MG PO (20:13)
[2021-07-25] VITALS (14 sets, daily range): BP systolic 99–136; BP diastolic 68–88; PULSE 98–125; RESP 12–20; TEMP 36.6–37.1; O2SAT 93–97
[2021-07-25] MEDS: ONDANSETRON 4 MG/2 ML INJ IV (00:18)
[2021-07-25] MEDS: LEVOTHYROXINE 50 MCG TABLET PO (06:15)
[2021-07-25 06:29] LABS: BUN Creatinine Ratio 22.6 (6-22); Blood Urea Nitrogen 33 mg/dL (9-20); Carbon Dioxide 26 mmol/L (22-32); Chloride 109 mmol/L (98-107); Estimated Glomerular Filt Rate 48 mL/min (>60); Glucose 99 mg/dL (80-110); HEMOLYSIS < 15 (0-50); Sodium 139 mmol/L (137-145)
[2021-07-25 06:43] LABS: Mean Corpuscular Hemoglobin 30.2 PG (26-34); Mean Corpuscular Volume 88.8 fL (80-100); Red Blood Cell Count 2.21 X10^6/uL (4.5-5.9); Red Cell Distribution Width 17.8 % (11.6-14.8); White Blood Cell Count 6.3 X10^3/uL (4.5-11.0)
[2021-07-25 06:45] LABS: Hemoglobin 6.7 g/dL (13.5-17.5)
[2021-07-25 06:46] LABS: Add Manual Diff / Slide Review YES; Hematocrit 19.6 % (41-53); Platelet Count 35 X10^3/uL (150-400)
[2021-07-25 07:18] LABS: Neutrophils Absolute Manual 4662 /uL (3000-5900); Nucleated Red Blood Cells 9 #/Diff; Total Cells Counted 100
[2021-07-25 07:19] LABS: Anisocytosis 3+
[2021-07-25] MEDS: MONTELUKAST 10 MG TABLET PO (09:01)
[2021-07-25] MEDS: TAMSULOSIN 0.4 MG CAPSULE PO (09:01)
[2021-07-25] MEDS: PANTOPRAZOLE 40 MG VIAL IV ×2 (09:01→20:10)
[2021-07-25] MEDS: SODIUM CHLORIDE 0.9% FLUSH 10 ML IV ×2 (09:01→20:10)
--- NOTE | 2021-07-25 11:35 | PC.NURSE ---
Addendum entered by Aspen Jalloh R.N. 07/25/21 18:58: Patient tolerated both units of his prbcs. He is resting comfortably. Addendum entered by Aspen Jalloh R.N. 07/25/21 15:14: Patients first unit of prbcs in, second unit has been started. He is tolerating the blood well but his pulse is going up. Last pulse 125. Phoned and told her she has ordered a stat chest xray. Addendum entered by Aspen Jalloh R.N. 07/25/21 11:45: Patients 15 minute vital signs done for blood transfusion, wnl. pulse is between 106 and 110. Rate increased to 125cc/hr Original Note: Assess- Patient is alert and oriented x2, he does have some periods of confusion. is at bedside. Patients first unit of PRBCs up and infusing. They were started at 11:12. He is tolerating them well and resting comfortably.
--- NOTE | 2021-07-25 15:12 | DI.RAD.S_ITS ---
PROCEDURE: XR CHEST 1V INDICATIONS: pulse increasing TECHNIQUE: One view of the chest was acquired. COMPARISON: [facility], CR, XR CHEST 1V, 07/21/2021, 12:15. FINDINGS: Surgical changes and devices: None. Lungs and pleura: Lungs are clear. No pleural effusions or pneumothorax. Mediastinum: Mediastinal contours appear normal. Heart size is normal. Bones and chest wall: No suspicious bony lesions. Overlying soft tissues appear unremarkable. IMPRESSION: No acute cardiopulmonary abnormality. Dictated by: Berhane Stewart M.D. on 07/25/2021 at 15:57 Approved by: Berhane Stewart M.D. on 07/25/2021 at 15:58
--- NOTE | 2021-07-25 15:58 | CM.DPNOTE ---
DCP Note Patient's spouse and son have been counseled last 24-[address] Balbuena and Dr Infante re options for treatment, current prognosis and anticipated trajectory. Family has decided today on comfort pathway. blood transfusions stopped, no EGD/colonoscopy to determine etiology of bleeding, no oncology f/u per spouse. Discussed Dispo options w/spouse Chloe today; spouse does not feel she can care for patient at home w/hospice. Spouse unsure if her son Viaks will make himself available to assist Reviewed [facility] choice list; spouse requests referral be faxed to [facility]: [facility], [facility] and [facility]. This ENVIRONMENTAL COORDINATOR counseled spouse that SNFs may be able to bill [facility] 5-7 days and that she would then need to pay privately (with deposit down)?spouse was agreeable to this, she asked for quote. PASRR completed. Plan: DC to SNF for end of life management is anticipated; still need to secure a SNF, referrals have been started, spouse states understanding that she will be expected to pay privately at SNF for end of life care JW
--- NOTE | 2021-07-25 16:04 | PM.PN.1 ---
Subjective Subjective Date Patient Seen: 07/25/21 Interval history: 81-year-old male admitted to the hospital with metastatic disease of unknown primary, probable acute blood loss anemia. His and son has decided they do not want to pursue upper or lower endoscopy. Patient received 2 units of packed RBCs. This morning his hemoglobin and hematocrit has trended down further. Hemoglobin is 6.7 with a hematocrit of 19.6. Patient is receiving 2 units of blood. In light of the fact that they do not want to work up the blood loss any further would recommend no further transfusions. Social work is anticipating possible discharge to group home once a bed is available. Patient developed significant tachycardia during his transfusion. but no hypoxia Exam Vital Signs (past 8 hours): - 07/25/21 11:11 07/25/21 08:15 07/25/21 11:34 Temperature 98.4 F 97.8 F Pulse Rate 106 H 108 H Respiratory Rate 18 18 Blood Pressure 132/86 127/88 Pulse Oximetry 96 Oxygen Delivery Method Room Air Oxygen Flow Rate 0 07/25/21 11:27 07/25/21 14:02 07/25/21 14:02 Temperature 98.5 F 98.7 F 98.7 F Pulse Rate 107 H 115 H 115 H Respiratory Rate 12 12 12 Blood Pressure 133/80 128/82 128/82 Pulse Oximetry Oxygen Delivery Method Oxygen Flow Rate 07/25/21 11:08 07/25/21 14:49 07/25/21 15:00 Temperature 98.4 F 98.0 F Pulse Rate 106 H 125 H Respiratory Rate 18 18 Blood Pressure 132/86 136/85 Pulse Oximetry 96 Oxygen Delivery Method Room Air Oxygen Flow Rate 0 Oxygen Delivery Method Room Air Oxygen Flow Rate 0 Narrative Exam Narrative: Chronically ill-appearing elderly male lying in bed Resp Other: Lungs decreased breath sounds but clear Cardio Other: Cardiac exam: Tachycardic regular rate and rhythm GI Other: Abdomen: Soft and nontender Objective Labs Result Diagrams: 07/25/21 05:50 07/25/21 05:50 Labs: Laboratory Results - last 24 hr 07/21/21 07/25/21 07/25/21 11:50 05:50 05:50 WBC 6.3 RBC 2.21 L Hgb 6.7 L* Hct 19.6 L* MCV 88.8 MCH 30.2 MCHC 34.0 RDW 17.8 H Plt Count 35 L* Neut % (Auto) Not Reportable Lymph % (Auto) Not Reportable [place] % (Auto) Not Reportable Eos % (Auto) Not Reportable Baso % (Auto) Not Reportable Lymph # (Auto) Not Reportable [place] # (Auto) Not Reportable Baso # (Auto) Not Reportable Total Counted 100 Seg Neutrophils % 60.0 Band Neutrophils % 14.0 H Lymphocytes % (Manual) 19.0 L Monocytes % (Manual) 1.0 L Metamyelocytes % 1.0 H Myelocytes % 5.0 H Neutrophils # (Manual) 4662 Nucleated RBCs 9 H RBC Morphology See below Anisocytosis 3+ H Sodium 139 Potassium 4.0 Chloride 109 H Carbon Dioxide 26 BUN 33 H Creatinine 1.46 H Estimated GFR 48 L BUN/Creatinine Ratio 22.6 H Glucose 99 Calcium 8.0 L Blood Type Antibody Screen Crossmatch See Detail 07/25/21 09:00 WBC RBC Hgb Hct MCV MCH MCHC RDW Plt Count Neut % (Auto) Lymph % (Auto) [place] % (Auto) Eos % (Auto) Baso % (Auto) Lymph # (Auto) [place] # (Auto) Baso # (Auto) Total Counted Seg Neutrophils % Band Neutrophils % Lymphocytes % (Manual) Monocytes % (Manual) Metamyelocytes % Myelocytes % Neutrophils # (Manual) Nucleated RBCs RBC Morphology Anisocytosis Sodium Potassium Chloride Carbon Dioxide BUN Creatinine Estimated GFR BUN/Creatinine Ratio Glucose Calcium Blood Type O Positive Antibody Screen Negative Crossmatch See Detail [facility] Medical History Anemia Ataxia BPH (benign prostatic hyperplasia) Cellulitis Chronic back pain CKD (chronic kidney disease) Cognitive decline Eczema (~1969) Hearing deficit Hypothyroidism Olecranon bursitis PSA elevation Shoulder pain (~2014) Skin lesion Tinea Vision disorder Weight loss due to medication Well adult exam Surgical History Colon polyps Family History Father Heart disease Social History household members: spouse Smoking Status: Former smoker alcohol intake: former substance use type: does not use Assessment & Plan Assessment & Plan narrative: magalie Kelley is an 81M with recent diagnosis of metastatic bone lesions who presents with anemia and thrombocytopenia secondary to likely lower GI bleeding in the setting of metastatic cancer. 1. Acute severe anemia and thrombocytopenia, GI bleeding -likely due to malignancy and possibly due to active bleeding. -continue IV protonix -transfuse PRBC 2U, and transfuse platelets -goal of hemoglobin >7, platelets >20 -prolonged discussion today of goals of care and options as noted below. Consider colonoscopy if bleeding continues in 24-48 hours timeframe. -differential is broad include possible colonic met which is bleeding, ischemia, diverticular, or even UGI bleeding. -appreciate oncology consultation -would suggest discharge to SNF when bed available. We can transfuse again before he discharges if H/H below 7 -He may or may not be able to get diagnosis before final decision about goals of care can be made Given advanced age and significant disease burden unlikely that curative therapy is possible -he developed tachycardia following the transfusion, will give 20 mg of IV Lasix. Suspect anemia is related to bone marrow suppression, bone marrow biopsy pending at this point -family has reiterated they do not want upper or lower endoscopy. Recommend no further transfusions at this point. 2. 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 Elevated troponin, myocardial injury -downtrending from last admission -suspect no acute change -etiology is possibly related to cardiac demand from anemia -no chest pain or shortness of breath, no need to trend further 4. Paroxysmal atrial fibrillation -currently in sinus, no AC given GI bleeding. -also thrombocytopenia contraindicated 5. 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 7. Advanced care planning ?-90 minutes of advance care planning was performed with the patient, , and son over the course of today.? Discussions focused on reiterating that the patient would not wish to be resuscitated and that he should remain DNR.? Poor prognosis was again stated, and the family is certainly understanding that at best he has a very advanced/metastatic malignancy and if there is any treatment it would be palliative in nature most likely and focused on potentially giving him more time.? They also realize that his quality of life may not be so great depending on his continued bleeding and weakness.? We discussed a few probabilities and treatment courses.? At this time they would like to continue with supportive treatments with transfusions as needed of blood products and platelets.? They would ideally like to await biopsy results for a more definitive diagnosis but this could be in a few weeks time.? It was discussed that this may not actually result in a final diagnosis, but we will need to wait and see.? I further discussed that he would likely to continue bleeding and recommended that the family continue to contemplate if they would want to pursue colonoscopy for diagnostic purposes and possible interventions.? They are not interested in major surgery including colon resection would bleeding worsen or if he would have a complication from colonoscopy.? The hope is that this bleeding would stop as the family would like to avoid colonoscopy if at all possible, and if it does.? They would like him to proceed with physical therapy and possible group home rehabilitation to see how he does prior to his oncology follow-up. Will discuss SNF placement with Case Management. Seems most reasonable option at this point Social work is attempting to find group home placement for him as his is unable to care for him at home. Time Spent With Patient Critical Care time: I spent a total of [] minutes of critical care time on this patient's care today; this time is exclusive of procedural time.
[2021-07-25] MEDS: FUROSEMIDE 40 MG/4 ML VIAL IV (18:03)
[2021-07-25] MEDS: FINASTERIDE 5 MG TABLET PO (20:10)
[2021-07-26] VITALS (18 sets, daily range): BP systolic 91–129; BP diastolic 58–76; PULSE 106–120; RESP 16–22; TEMP 35.7–37.2; O2SAT 93–99
--- NOTE | 2021-07-26 00:48 | PC.NURSE ---
Pt had positive a giuiac stool, pt had recieved 2 units of RBC on dayshift. Pt blood pressure was 93/58, MAP 72, HR 119. Spoke with Dr Riso and an NS bolus of 500 and then NS at 75 was ordered. Will continue to monitor.
[2021-07-26] MEDS: SODIUM CHLORIDE 0.9% 1,000 ML 75 ML IV ×2 (00:54→08:07)
[2021-07-26] MEDS: SODIUM CHLORIDE 0.9% 500 ML 1000 ML IV (00:54)
[2021-07-26 05:47] LABS: BUN Creatinine Ratio 30.6 (6-22); Blood Urea Nitrogen 55 mg/dL (9-20); Calcium 7.3 mg/dL (8.4-10.2); Carbon Dioxide 24 mmol/L (22-32); Chloride 112 mmol/L (98-107); Estimated Glomerular Filt Rate 37 mL/min (>60); Glucose 121 mg/dL (80-110); HEMOLYSIS < 15 (0-50); Potassium 4.2 mmol/L (3.4-5.1); Sodium 140 mmol/L (137-145)
[2021-07-26 05:57] LABS: Mean Corpuscular Hemoglobin 29.8 PG (26-34); Mean Corpuscular Volume 87.6 fL (80-100); Red Blood Cell Count 2.13 X10^6/uL (4.5-5.9); Red Cell Distribution Width 15.9 % (11.6-14.8); White Blood Cell Count 9.1 X10^3/uL (4.5-11.0)
[2021-07-26 06:07] LABS: Add Manual Diff / Slide Review YES; Hematocrit 18.7 % (41-53); Hemoglobin 6.4 g/dL (13.5-17.5); Platelet Count 33 X10^3/uL (150-400)
--- NOTE | 2021-07-26 06:10 | PC.NURSE ---
Lab called with critical values for: Hemoglobin:6.4, Hematocrit: 18.7, Platelets:33. Called Dr Rios with the critical values.
[2021-07-26 06:25] LABS: Neutrophils Absolute Manual 7280 /uL (3000-5900); Nucleated Red Blood Cells 21 #/Diff; Total Cells Counted 100
[2021-07-26 06:26] LABS: Anisocytosis 3+; Platelet Estimate Decreased on smear; Polychromasia 1+
[2021-07-26] MEDS: LEVOTHYROXINE 50 MCG TABLET PO (06:32)
[2021-07-26] MEDS: MONTELUKAST 10 MG TABLET PO (08:09)
[2021-07-26] MEDS: TAMSULOSIN 0.4 MG CAPSULE PO (08:09)
[2021-07-26] MEDS: PANTOPRAZOLE 40 MG VIAL IV ×2 (08:09→19:53)
[2021-07-26] MEDS: SODIUM CHLORIDE 0.9% FLUSH 10 ML IV (08:10)
[2021-07-26 09:16] LABS: Albumin 2.2 g/dL (3.5-5.0)
--- NOTE | 2021-07-26 16:42 | PM.PN.1 ---
Subjective Subjective Date Patient Seen: 07/26/21 Interval history: 81-year-old male admitted to the hospital with metastatic disease of unknown primary, probable acute blood loss anemia continues to have worsening anemia. Hg again below 7 today, will transfuse again. Family is agreeable to transfer to rehab on hospice, they would like to continue transfusions until a bed is available. They understand that on discharge he would stop receiving additional transfusions on hospice and goals would be to remain comfortable at that time. Exam Vital Signs (past 8 hours): - 07/26/21 11:24 07/26/21 11:45 07/26/21 08:45 Temperature 96.6 F L 97.7 F Pulse Rate 116 H 117 H Respiratory Rate 18 20 Blood Pressure 99/63 91/58 L Pulse Oximetry 98 Oxygen Delivery Method Room Air Oxygen Flow Rate 0 07/26/21 13:00 07/26/21 14:26 07/26/21 14:40 Temperature 96.6 F L 97.2 F L 97.2 F L Pulse Rate 116 H 117 H 117 H Respiratory Rate 19 18 18 Blood Pressure 99/63 99/63 99/63 Pulse Oximetry 96 Oxygen Delivery Method Oxygen Flow Rate 0 07/26/21 14:58 07/26/21 13:00 Temperature 97.4 F L Pulse Rate 116 H Respiratory Rate 20 Blood Pressure 122/75 Pulse Oximetry 96 Oxygen Delivery Method Room Air Oxygen Flow Rate 0 Oxygen Delivery Method Room Air Oxygen Flow Rate 0 Narrative Exam Narrative: GEN: no acute distress, frail, chronically ill appearing, more pale than previously HEENT: dry mucous membranes, PERRL NECK: trachea mildine, no JVD CV: regular rate and rhythm, no murmurs PULM: clear bilaterally, no wheezes, rhonchi, rales ABD: soft, nontender, nondistended, no organomegaly EXT: warm and well perfused, with no edema NEURO: confused, fatigued, pleasant, no focal deficits noted Objective Labs Result Diagrams: 07/26/21 05:15 07/26/21 05:15 Labs: Laboratory Results - last 24 hr 07/25/21 07/26/21 07/26/21 09:00 05:15 05:15 WBC 9.1 RBC 2.13 L Hgb 6.4 L* Hct 18.7 L* MCV 87.6 MCH 29.8 MCHC 34.0 RDW 15.9 H Plt Count 33 L* Neut % (Auto) Not Reportable Lymph % (Auto) Not Reportable [place] % (Auto) Not Reportable Eos % (Auto) Not Reportable Baso % (Auto) Not Reportable Lymph # (Auto) Not Reportable [place] # (Auto) Not Reportable Baso # (Auto) Not Reportable Total Counted 100 Seg Neutrophils % 67.0 Band Neutrophils % 13.0 H Lymphocytes % (Manual) 10.0 L Monocytes % (Manual) 3.0 Metamyelocytes % 2.0 H Myelocytes % 5.0 H Neutrophils # (Manual) 7280 H Nucleated RBCs 21 H Platelet Estimate Decreased on smear RBC Morphology See below Polychromasia 1+ H Anisocytosis 3+ H Sodium 140 Potassium 4.2 Chloride 112 H Carbon Dioxide 24 BUN 55 H Creatinine 1.80 H Estimated GFR 37 L BUN/Creatinine Ratio 30.6 H Glucose 121 H Calcium 7.3 L Albumin Blood Type Antibody Screen Crossmatch See Detail 07/26/21 07/26/21 05:15 05:15 WBC RBC Hgb Hct MCV MCH MCHC RDW Plt Count Neut % (Auto) Lymph % (Auto) [place] % (Auto) Eos % (Auto) Baso % (Auto) Lymph # (Auto) [place] # (Auto) Baso # (Auto) Total Counted Seg Neutrophils % Band Neutrophils % Lymphocytes % (Manual) Monocytes % (Manual) Metamyelocytes % Myelocytes % Neutrophils # (Manual) Nucleated RBCs Platelet Estimate RBC Morphology Polychromasia Anisocytosis Sodium Potassium Chloride Carbon Dioxide BUN Creatinine Estimated GFR BUN/Creatinine Ratio Glucose Calcium Albumin 2.2 L Blood Type O Positive Antibody Screen Negative Crossmatch See Detail [facility] Medical History Anemia Ataxia BPH (benign prostatic hyperplasia) Cellulitis Chronic back pain CKD (chronic kidney disease) Cognitive decline Eczema (~1969) Hearing deficit Hypothyroidism Olecranon bursitis PSA elevation Shoulder pain (~2014) Skin lesion Tinea Vision disorder Weight loss due to medication Well adult exam Surgical History Colon polyps Family History Father Heart disease Social History household members: spouse Smoking Status: Former smoker alcohol intake: former substance use type: does not use Assessment & Plan Assessment & Plan narrative: Mr. Kelley is an 81M with recent diagnosis of metastatic bone lesions who presents with anemia and thrombocytopenia secondary to likely lower GI bleeding in the setting of metastatic cancer. 1. Acute severe anemia and thrombocytopenia, GI bleeding -likely due to malignancy and possibly due to active bleeding. -continue IV protonix -transfuse PRBC 2U again today, and transfuse platelets -goal of hemoglobin >7, platelets >20 -prolonged discussion today of goals of care and options as noted below. -differential is broad include possible colonic met which is bleeding, ischemia, diverticular, or even UGI bleeding. -appreciate oncology consultation -He may or may not be able to get diagnosis before he expires. Plan is for discharge to SNF on hospice. Given advanced age and significant disease burden unlikely that curative therapy is possible -he developed tachycardia following the transfusion, gave 20 mg of IV Lasix. Suspect anemia is related to bone marrow suppression, bone marrow biopsy pending at this point -family has reiterated they do not want upper or lower endoscopy, but would like to continue transfusions while in the hospital until he has a bed at SNF. - They understand that on discharge he would stop receiving additional transfusions on hospice and goals would be to remain comfortable at that time. 2. 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 Elevated troponin, myocardial injury -downtrending from last admission -suspect no acute change -etiology is possibly related to cardiac demand from anemia -no chest pain or shortness of breath, no need to trend further 4. Paroxysmal atrial fibrillation -currently in sinus, no AC given GI bleeding. -also thrombocytopenia contraindicated 5. 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 Severe acute on chronic protein calorie malnutrition ?-appreciate dietary consultation and supplemental meals are provided per recommendations ?-his severe nutrition is contributing to his overall poor prognosis, and inadequate nutrition can further worsen patient's bleeding and affects short and usp prognosis in setting of malignancy. 7. Advanced care planning ?-Since admission discussions focused on reiterating that the patient would not wish to be resuscitated and that he should remain DNR.? Poor prognosis was again stated, and the family is certainly understanding that at best he has a very advanced/metastatic malignancy and if there is any treatment it would be palliative in nature most likely and focused on potentially giving him more time.? They also realize that his quality of life may not be so great depending on his continued bleeding and weakness.? We discussed a few probabilities and treatment courses.? At this time they would like to continue with supportive treatments with transfusions as needed of blood products and platelets.? They would ideally like to await biopsy results for a more definitive diagnosis but this could be in a few weeks time.? It was discussed that this may not actually result in a final diagnosis, but we will need to wait and see.?They are not interested in endoscopy or procedures after discussion. They are not interested in major surgery including colon resection would bleeding worsen or if he would have a complication from colonoscopy.?After continued worsening anemia, family elected for discharge to SNF on hospice, but would like to continue transfusions in the hospital at this time. They understand that on discharge he would stop receiving additional transfusions on hospice and goals would be to remain comfortable at that time. Social work is attempting to find alf placement for him as his is unable to care for him at home. Time Spent With Patient Critical Care time: I spent a total of [] minutes of critical care time on this patient's care today; this time is exclusive of procedural time.
[2021-07-26] MEDS: FINASTERIDE 5 MG TABLET PO (19:53)
[2021-07-27 02:00] VITALS: O2SAT 96
[2021-07-27] MEDS: SODIUM CHLORIDE 0.9% 1,000 ML 75 ML IV ×2 (04:58→06:52)
[2021-07-27 05:15] VITALS: BP 90/55; PULSE 117; RESP 18; TEMP 36.9
[2021-07-27 06:00] VITALS: O2SAT 99
--- NOTE | 2021-07-27 06:04 | PC.NURSE ---
Called Dr Rios, pt BP was low at 93/58, HR 106, small bloody stool. Orders to repeat BP in 30 minutes, if still low call again.
[2021-07-27] MEDS: LEVOTHYROXINE 50 MCG TABLET PO (06:11)
[2021-07-27 06:38] VITALS: BP 87/51; PULSE 119
[2021-07-27] MEDS: SODIUM CHLORIDE 0.9% 500 ML 1000 ML IV (06:56)
[2021-07-27 07:19] LABS: Add Manual Diff / Slide Review NO; Basophils Absolute Auto 0 /uL (0-100); Basophils Percent Auto 0.4 % (0-2); Eosinophils Absolute Auto 100 /uL (0-450); Eosinophils Percent Auto 0.6 % (2-4); Lymphocytes Absolute Auto 2300 /uL (1100-4500); Lymphocytes Percent Auto 23.2 % (25-40); Mean Corpuscular HGB Conc 34.5 % (30-36); Mean Corpuscular Hemoglobin 30.2 PG (26-34); Mean Corpuscular Volume 87.6 fL (80-100); Monocytes Absolute Auto 600 /uL (0-900); Monocytes Percent Auto 5.7 % (3-14); Neutrophils Absolute Auto 6800 /uL (1500-7000); Neutrophils Percent Auto 70.1 % (50-75); Red Blood Cell Count 1.77 X10^6/uL (4.5-5.9); Red Cell Distribution Width 15.6 % (11.6-14.8); White Blood Cell Count 9.7 X10^3/uL (4.5-11.0)
[2021-07-27 07:24] LABS: Hematocrit 15.5 % (41-53); Hemoglobin 5.4 g/dL (13.5-17.5); Platelet Count 23 X10^3/uL (150-400)
[2021-07-27 07:30] LABS: BUN Creatinine Ratio 43.4 (6-22); Blood Urea Nitrogen 86 mg/dL (9-20); Calcium 7.1 mg/dL (8.4-10.2); Carbon Dioxide 20 mmol/L (22-32); Chloride 113 mmol/L (98-107); Estimated Glomerular Filt Rate 33 mL/min (>60); Glucose 124 mg/dL (80-110); HEMOLYSIS < 15 (0-50); Sodium 140 mmol/L (137-145)
[2021-07-27 07:54] LABS: Anisocytosis 2+; Nucleated Red Blood Cells 9 #/Diff; Poikilocytosis 1+; Polychromasia 1+; Rouleaux 1+
[2021-07-27 08:26] VITALS: BP 94/60; PULSE 121; RESP 20; TEMP 36.4; O2SAT 97
--- NOTE | 2021-07-27 08:44 | PC.NURSE ---
Addendum entered by Aspen Jalloh R.N. 07/27/21 15:09: Patient given 10mg of liquid Morphine for rr of 28/min. Went to check on patient shortly after and he took his last breath at 1503 with no heart beat present. RN Emi also checked to make sure that patient did not have a pulse. aware and coordinator Thalia notified. Patients is in room and was present. Her son is going to come back to the hospital to see patient soon. Addendum entered by Aspen Jalloh R.N. 07/27/21 11:41: Patients breathing increased to 20 per minute. Given 10mg of slingual morphine in his r.side of cheek. HOB is elevated. [place] in room, patient is [employer] so Father Charleen will be buy to see patient soon. Addendum entered by Aspen Jalloh R.N. 07/27/21 10:42: Patient cleaned up, he had an xl bm with crimson colored blood. Scopalimine patch placed behind his r.ear as patient is starting to gurgle. Warm blankets place on patient and his son is now here visiting with Nish. Addendum entered by Aspen Jalloh R.N. 07/27/21 10:24: Patient is on comfort care measures now. His son and his will be here soon to visit. Patient is asleep at this time. is in room. He is going to be cleaned up now and changed. Addendum entered by Aspen Jalloh R.N. 07/27/21 08:52: Patients would like to hold off on his medications at this time. Original Note: Assess- Patient is lethargic and not able to talk as well today. He is confused but did know he is in [place]. ordered two units of packed cells to be given. came into see patient around 0800 and is here visiting. talked to patient, and we are going to hold off on blood at this time and iv fluids. He is not having any pain at this time. He is peaked and unable to walk from weakness. He is on bed rest and incontinent of urine and bowel, but at times able to use the urinal. He is resting comfortably and only took bites of apple sauce.
[2021-07-27] MEDS: SCOPOLAMINE 1 PATCH TOP (10:40)
[2021-07-27] MEDS: MORPHINE 10 MG/0.5 ML ORAL SYRINGE SL ×2 (11:32→14:38)
--- NOTE | 2021-07-27 11:33 | DIET.CONS2 ---
Dietary Inpatient Consultation Note Admission Date: 07/21/2021 14:17 Pt transitioned to comfort care this morning, recc comfort feeding as tolerated. Diet: 07/22/21 Dinner General (Regular) Diet Diet Modifications: ONS [place] bid Nutrition Percent Meal Consumed 25% 07/26/21 18:00 Percent Meal Consumed 15 07/26/21 14:00 Percent Meal Consumed refused breakfast 07/26/21 09:01 Electronically Signed by: Sita Carbajal 07/27/21 11:33 Clinical Dietitian [address] [id number]
--- NOTE | 2021-07-27 11:35 | CM.DPC ---
DCP/continued: Reviewed chart on 07-26-21, DRUG AND ALCOHOL COUNSELLOR unable to document in [employer] on day of visit. Met with patient's spouse at bedside. She reports that she would like patient to go to [facility] rather than SNF for comfort care. Notified spouse that CM team unable to reach anyone on Tuesday from [facility]. Both [facility] and [facility] have referrals. Provider reports patient continuing to get blood transfusions today. CM team will attempt transfer for comfort care on 07-27-21. UPDATE: Received notification from provider today that no comfort placement will be needed. Patient on complete comfort measures and provider does not anticipate that he will survive the next 24hrs. Asked RN to consult administrative assistant front desk and requested DRUG AND ALCOHOL COUNSELLOR provide emotional support if requested. P: Anticipate that patient will within the next 24hrs. ROSEY
--- NOTE | 2021-07-27 15:38 | CM.DPC ---
DCP Per RN, pt had family bedside and Local Flatbed Driver had provided some support bedside and family had called their bat lathe operator and pt around 1503 today. YUMIKO Omalley
--- NOTE | 2021-07-27 15:52 | PM.DDS.1 ---
Discharge Summary History of Illness Chief Complaint: GI Bleed Narrative: Per Dr. Johnson, Mr. Kelley is an 81M with PMH of recent admission to hospital and discharge just days ago with sclerotic bone lesions concerning for metastatic disease. Additionally he had severe anemia requiring transfusion, thrombocytopenia and chronic history of HTN, CKD, and dementia. He did not have noted any GI bleeding per looking through his records. He did have a high PSA which raised the concern for possible prostate primary, though primary site of malignancy remains unknown. He was discharged only a few days ago. Per report he was weak and more confused then his normal. He also had right foot pain. He supposedly have at least one black stool, no vomiting, no bright blood in stool. Additional medical history notes a self-limited of afib with RVR last admission, elevated troponin, and a referral to oncology which is pending. In the ED workup was done, vitals notable for blood pressure in the 90s, and heart rate in the 90s. Labs notable for WBC 11.8, hgb 6.2, plts 33. BUN 34, creatinine 1.32. INR 1.7. COVID negative. Troponin 0.535, BNP [address]39. CT head shows a possible lesion in the brain in the right cerebellum vs old stroke. Chest xray with no acute process. EKG with no acute process. Xray of right foot with degenerative changes. He was ordered for blood and platelet transfusion, ordered for protonix and admitted for further treatment. Hospital Course Date of Admission: 07/21/21 14:17 Primary care provider: Sadi Quiros DO Consults: 07/25/21 16:06 Consult to Dietitian, Adult Routine Comment: Reason For Exam: patient is eating poorly. 07/27/21 08:26 Consult to Hospice Referral Urgent Comment: Discharge provider: Dr. Balbuena Discharge Diagnosis: Please see hospital course by problem list noted below: Hospital Course: Mr. Kelley is an 81M with recent diagnosis of metastatic bone lesions who presented with anemia and thrombocytopenia secondary to likely lower GI bleeding in the setting of metastatic cancer. After prolonged hospitalization, and no improvement in anemia despite multiple transfusions, decision made to provide comfort care. He ultimately a few hours after making this decision at 3:03pm on 07/27/2021. 1. Acute severe anemia and thrombocytopenia, GI bleeding -likely due to malignancy and possibly due to active bleeding. -continued on IV protonix throughout his hospitalization. Patient received a total of 4U PRBC over the course of admission, with continued decline in his hemoglobin. -as discussed below the family was not interested in pursuing surgical management or colonoscopy for further evaluation of his bleeding. It was hoped that this bleeding would stop on its own, however did not. After multiple transfusions with continued decline in his hemoglobin and hematocrit the decision was made to stop further transfusions and proceed with full comfort care. The patient shortly after this decision was made. 2. 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 3. Elevated troponin, myocardial injury -downtrending from last admission -suspect no acute change -etiology is likely related to cardiac demand from anemia -no chest pain or shortness of breath during admission, no need to trend further 4. Paroxysmal atrial fibrillation -patient was in sinus rhythm during his stay, no AC given GI bleeding. -also thrombocytopenia contraindicated AC. 5. VICTORINO on suspected CKD stage 2 - likely VICTORINO due to worsening anemia. 6. Severe acute on chronic protein calorie malnutrition ?-appreciate dietary consultation ?-his severe nutrition contributed to his overall poor prognosis. 7. Advanced care planning ?-multiple discussions were had over the course of his admission with regards to advance care planning and goals of care discussion. On the day the patient , he continued to have declining hemoglobin and hematocrit despite multiple prior transfusions. Given their desire not to pursue any procedural interventions, the utility of continued transfusions was discussed and family ultimately decided for comfort care measures at that time. Time : 15:03 07/27/2021. Time spent with patient and family: >30 minutes Objective Labs Result Diagrams: 07/27/21 06:05 07/27/21 06:05 Labs: Laboratory Results - last 24 hr 07/26/21 07/27/21 07/27/21 05:15 06:05 06:05 WBC 9.7 RBC 1.77 L Hgb 5.4 L* Hct 15.5 L* MCV 87.6 MCH 30.2 MCHC 34.5 RDW 15.6 H Plt Count 23 L* Neut % (Auto) 70.1 Lymph % (Auto) 23.2 L Brewster % (Auto) 5.7 Eos % (Auto) 0.6 L Baso % (Auto) 0.4 Neut # (Auto) 6800 Lymph # (Auto) 2300 Brewster # (Auto) 600 Eos # (Auto) 100 Baso # (Auto) 0 Nucleated RBCs 9 H RBC Morphology Not Reportable Polychromasia 1+ H Poikilocytosis 1+ H Anisocytosis 2+ H Rouleaux 1+ H Sodium 140 Potassium 4.0 Chloride 113 H Carbon Dioxide 20 L BUN 86 H Creatinine 1.98 H Estimated GFR 33 L BUN/Creatinine Ratio 43.4 H Glucose 124 H Calcium 7.1 L Blood Type O Positive Antibody Screen Negative Crossmatch See Detail
== END 2021-07-27 18:30 | disposition expired | DRG 843 ==
LOC: ED 12:59 → AC 14:18
PROVIDERS: Internal Medicine; Nurse Practitioner Family; Admitting Provider Internal Medicine; Emergency Provider Emergency Medicine; Family Provider Family Medicine; PCP Family Medicine; Referring Provider Emergency Medicine; Visit Provider Internal Medicine
DX: C80.1 Malignant (primary) neoplasm, unspecified (principal); E43 Unspecified severe protein-calorie malnutrition; I5A Non-ischemic myocardial injury (non-traumatic); K92.2 Gastrointestinal hemorrhage, unspecified; D62 Acute posthemorrhagic anemia; C79.51 Secondary malignant neoplasm of bone; D63.0 Anemia in neoplastic disease; D69.59 Other secondary thrombocytopenia; C79.31 Secondary malignant neoplasm of brain; E03.9 Hypothyroidism, unspecified; N18.2 Chronic kidney disease, stage 2 (mild); I95.9 Hypotension, unspecified; Z68.23 Body mass index [BMI] 23.0-23.9, adult; Z87.891 Personal history of nicotine dependence; Z20.822 Contact with and (suspected) exposure to COVID-19; Z66 Do not resuscitate; Z51.5 Encounter for palliative care
CPT/HCPCS: 36415; 36430; 38222; 70450; 71045; 73630; 80048; 80053; 81001; 82040; 82550; 82553; 83690; 83880; 84484; 85007; 85014; 85018; 85025; 85027; 85610; 85730; 86850; 86900; 86901; 87635; 93005; 93010; 94760; 96374; 99000; 99285; 99291; C9803; P9016; C9113; J1940; J2405; P9035